=== PATIENT | male | born 1970 | race Two or more races ===

== ENCOUNTER 2016-03-02 11:40 | Inpatient (IN) | payer OTHER ==
[2016-03-02 13:48] VITALS: BMI 24.5
--- NOTE | 2016-03-02 15:42 | HP ---
CIWA Score - CIWA Score Nausea/Vomitin Muscle Tremors: 3 Anxiety: 3 Agitation: 3 Paroxysmal Sweats: 2 Orientation: 0-Oriented Tacttile Disturbances: 2-Mild Itch/Numbness/Burn Auditory Disturbances: 2-Mild Harshness/Frighten Visual Disturbances: 2-Mild Sensitivity Headache: 2-Mild CIWA-Ar Total Score: 22 Admission ROS BHS - HPI Chief Complaint: i am here to stop drinking from alcohol Allergies/Adverse Reactions: Allergies Allergy/AdvReac Type Severity Reaction Status Date / Time Penicillins Allergy Severe Difficulty Verified 03/02/16 15:34 Breathing pork derived (porcine) Allergy Intermediate Hives Verified 03/02/16 15:34 fish Allergy Intermediate Hives Uncoded 03/02/16 15:34 History of Present Illness: this 45 years old male with alcohol dependence,withdrawal symptom,last detox [facility] syncope alcohol related nicotine dependence neurofibromatosis longest period of sobriety 5 years major depression Exam Limitations: No Limitations - Ebola screening Have you traveled outside of the country in the last 21 days: No Have you had contact with anyone from an Ebola affected area: No Have you been sick,other than usual withdrawal symptoms: No - Review of Systems Constitutional: Loss of Appetite, Malaise, Night Sweats, Changes in sleep, Weakness, Unintentional Wgt. Loss EENT: reports: Nose Congestion Respiratory: reports: No Symptoms reported Cardiac: reports: Palpitations GI: reports: Diarrhea, Nausea, Vomiting, Abdominal cramping : reports: No Symptoms Reported Musculoskeletal: reports: Back Pain, Muscle Pain Integumentary: reports: Dryness Neuro: reports: Headache, Tremors Endocrine: reports: No Symptoms Reported Hematology: reports: No Symptoms Reported Psychiatric: reports: Depressed Patient History - Patient Medical History Hx Anemia: No Hx Asthma: Yes (albutrol inhaler) Hx Chronic Obstructive Pulmonary Disease (COPD): No Hx Cancer: No Hx Cardiac Disorders: No Hx Congestive Heart Failure: No Hx Hypertension: No Hx Hypercholesterolemia: No Hx Pacemaker: No HX Cerebrovascular Accident: No Hx Seizures: No Hx Dementia: No Hx Diabetes: No Hx Gastrointestinal Disorders: No Hx Liver Disease: No Hx Genitourinary Disorders: No Hx Sexually Transmitted Disorders: No Hx Renal Disease (ESRD): No Hx Thyroid Disease: No Hx Human Immunodeficiency Virus (HIV): No (NEGATIVE HX last 2013) Hx Hepatitis C: No Hx Depression: Yes (no med) Hx Suicide Attempt: No (DENIES) Hx Bipolar Disorder: No Hx Schizophrenia: No Other Medical History: no suicidal,no homicidal - Patient Surgical History Past Surgical History: Yes Hx Neurologic Surgery: No Hx Cataract Extraction: No Hx Cardiac Surgery: No Hx Lung Surgery: No Hx Breast Surgery: No Hx Breast Biopsy: No Hx Abdominal Surgery: No Hx Appendectomy: No Hx Cholecystectomy: No Hx Genitourinary Surgery: No Hx Section: No Hx Orthopedic Surgery: No Other Surgical History: dermatofiromatosis right leg 3 years ago Anesthesia Reaction: No - PPD History Previous Implant?: Yes Documented Results: Negative w/o proof Implanted On Prior R Admission?: No PPD to be Administered?: Yes - Smoking Cessation Smoking history: Current every day smoker Have you smoked in the past 12 months: Yes Aproximately how many cigarettes per day: 10 Cigars Per Day: 0 Hx Chewing Tobacco Use: No Initiated information on smoking cessation: Yes 'Breaking Loose' booklet given: 03/02/16 - Substance & Tx. History Hx Alcohol Use: Yes Hx Substance Use: Yes Substance Use Type: Alcohol, Cocaine Hx Substance Use Treatment: Yes (01/04 [facility]) Family Disease History - Family Disease History Family Disease History: Diabetes: Grandparent (), Heart Disease: Grandparent, CA: Mother (SKIN CA-), Other: Father (IVD INJ/HIV/AIDS- ), Brother (alcohol) Admission Physical Exam BHS - Vital Signs Vital Signs: Vital Signs - 24 hr 03/02/16 13:46 Temperature 97.2 F L Pulse Rate 90 Respiratory 18 Rate Blood Pressure 116/72 - Physical General Appearance: Yes: Moderate Distress, Tremorous, Irritable, Sweating, Anxious HEENTM: Yes: Nasal Congestion Respiratory: Yes: Lungs Clear Neck: Yes: Within Normal Limits Breast: Yes: Within Normal Limits Cardiology: Yes: Within Normal Limits, Regular Rhythm, Regular Rate, S1, S2 Abdominal: Yes: Within Normal Limits, Normal Bowel Sounds, Non Tender, Flat, Soft Genitourinary: Yes: Within Normal Limits Back: Yes: Muscle Spasm Musculoskeletal: Yes: Back pain, Muscle Pain Extremities: Yes: Tremors 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, Fully Oriented, Alert, Motor Strength 5/5 Integumentary: Yes: Dry Lymphatic: Yes: Within Normal Limits - Diagnostic (1) Alcohol dependence with uncomplicated withdrawal Current Visit: No Status: Acute (2) Asthma Current Visit: No Status: Chronic (3) History of neurofibromatosis Current Visit: No Status: Chronic (4) Syncope Current Visit: Yes Status: Acute (5) Weight loss Current Visit: Yes Status: Acute (6) Depression Current Visit: Yes Status: Acute Cleared for Admission S - Detox or Rehab [facility] Level of Care: Medically Managed Detox Regimen/Protocol: Librium S Breath Alcohol Content Breath Alcohol Content: 0 Urine Drug Screen - Results Drug Screen Negative: No Urine Drug Screen Results: THC-Marijuana, FABI-Cocaine, OPI-Opiates, BZO- Benzodiazepines
[2016-03-02] MEDS ORDERED: MAGNESIUM CITRATE 300 ML BOTTLE PO PRN (15:49)
[2016-03-02] MEDS ORDERED: guaiFENesin/D-METHORPHAN HB 10 ML UNIT-DOSE CUPS PO PRN (15:49)
[2016-03-02] MEDS ORDERED: hydrOXYzine PAMOATE 50 MG CAPSULE (FP) PO PRN (15:49)
[2016-03-02] MEDS ORDERED: diphenhydrAMINE HCL 50 MG CAPSULE PO PRN (15:49)
[2016-03-02] MEDS ORDERED: ACETAMINOPHEN 325 MG TABLET (FP) PO PRN (15:49)
[2016-03-02] MEDS ORDERED: MAGNESIUM HYDROX 2400MG/30ML ORAL SUSPENSION 30 ML CUP PO PRN (15:49)
[2016-03-02] MEDS ORDERED: MENTHOL/PHENOL 1 EACH UD MM PRN (15:49)
[2016-03-02] MEDS ORDERED: P-EPHED 60MG/TRIPROLIDI 2.5MG TABLET PO PRN (15:49)
[2016-03-02] MEDS ORDERED: LOPERAMIDE HCL 2 MG CAPSULE PO PRN (15:49)
[2016-03-02] MEDS ORDERED: MAG HYDROX/AL HYDROX/SIMETH 30 ML UNIT-DOSE CUP PO PRN (15:49)
[2016-03-02] MEDS ORDERED: chlordiazePOXIDE HCL 25 MG CAPSULE PO PRN (15:49)
[2016-03-02] MEDS ORDERED: ALBUTEROL SO4 6.7 GM HFA INHALER IH PRN (15:54)
--- NOTE | 2016-03-02 15:59 | HP ---
CIWA Score - CIWA Score Nausea/Vomitin Muscle Tremors: 3 Anxiety: 3 Agitation: 3 Paroxysmal Sweats: 2 Orientation: 0-Oriented Tacttile Disturbances: 2-Mild Itch/Numbness/Burn Auditory Disturbances: 2-Mild Harshness/Frighten Visual Disturbances: 2-Mild Sensitivity Headache: 2-Mild CIWA-Ar Total Score: 22 Admission ROS BHS - HPI Chief Complaint: i nee help to stop drinking alcohol Allergies/Adverse Reactions: Allergies Allergy/AdvReac Type Severity Reaction Status Date / Time Penicillins Allergy Severe Difficulty Verified 03/02/16 15:34 Breathing pork derived (porcine) Allergy Intermediate Hives Verified 03/02/16 15:34 fish Allergy Intermediate Hives Uncoded 03/02/16 15:34 History of Present Illness: this 45 years old male with alcohol dependence with withdrawal symptom,last detox 01/04 [facility] syncope alcohol related nicotine dependence longest period sobriety 8 years neurodermatofibrosis Exam Limitations: No Limitations - Ebola screening Have you traveled outside of the country in the last 21 days: No Have you had contact with anyone from an Ebola affected area: No Have you been sick,other than usual withdrawal symptoms: No - Review of Systems Constitutional: Loss of Appetite, Malaise, Night Sweats, Changes in sleep, Weakness, Unexplained wgt Loss EENT: reports: Nose Congestion Respiratory: reports: No Symptoms reported Cardiac: reports: Palpitations GI: reports: Diarrhea, Nausea, Vomiting, Abdominal cramping : reports: No Symptoms Reported Musculoskeletal: reports: Back Pain, Muscle Pain Integumentary: reports: Dryness, Other (multiple skin lesion neuridermatofibrosis) Neuro: reports: Headache, Tremors Endocrine: reports: No Symptoms Reported Hematology: reports: No Symptoms Reported Psychiatric: reports: Depressed Other Systems: Reviewed and Negative Patient History - Patient Medical History Hx Anemia: No Hx Asthma: Yes (albutrol inhaler) Hx Chronic Obstructive Pulmonary Disease (COPD): No Hx Cancer: No Hx Cardiac Disorders: No Hx Congestive Heart Failure: No Hx Hypertension: No Hx Hypercholesterolemia: No Hx Pacemaker: No HX Cerebrovascular Accident: No Hx Seizures: No Hx Dementia: No Hx Diabetes: No Hx Gastrointestinal Disorders: No Hx Liver Disease: No Hx Genitourinary Disorders: No Hx Sexually Transmitted Disorders: No Hx Renal Disease (ESRD): No Hx Thyroid Disease: No Hx Human Immunodeficiency Virus (HIV): No (NEGATIVE HX last 2013) Hx Hepatitis C: No Hx Depression: Yes (no med) Hx Suicide Attempt: No (DENIES) Hx Bipolar Disorder: No Hx Schizophrenia: No Other Medical History: no suicidal,no homicidal - Patient Surgical History Past Surgical History: Yes Hx Neurologic Surgery: No Hx Cataract Extraction: No Hx Cardiac Surgery: No Hx Lung Surgery: No Hx Breast Surgery: No Hx Breast Biopsy: No Hx Abdominal Surgery: No Hx Appendectomy: No Hx Cholecystectomy: No Hx Genitourinary Surgery: No Hx Section: No Hx Orthopedic Surgery: No Other Surgical History: dermatofiromatosis right leg 3 years ago Anesthesia Reaction: No - PPD History Previous Implant?: Yes Documented Results: Negative w/o proof Implanted On Prior [facility] Admission?: No - Smoking Cessation Smoking history: Current every day smoker Have you smoked in the past 12 months: Yes Aproximately how many cigarettes per day: 10 Cigars Per Day: 0 Hx Chewing Tobacco Use: No Initiated information on smoking cessation: Yes 'Breaking Loose' booklet given: 03/02/16 - Substances Abused Alcohol Route: Oral Frequency: Daily Amount used: 10 BEERS/ 3 PINTS VODKA Age of first use: 11 Date of Last Use: 03/01/16 Family Disease History - Family Disease History Family Disease History: Diabetes: Grandparent (), Heart Disease: Grandparent, CA: Mother (SKIN CA-), Other: Father (IVD INJ/HIV/AIDS- ), Brother (alcohol) Admission Physical Exam S - Vital Signs Vital Signs: Vital Signs - 24 hr 03/02/16 13:46 Temperature 97.2 F L Pulse Rate 90 Respiratory 18 Rate Blood Pressure 116/72 - Physical General Appearance: Yes: Moderate Distress, Tremorous, Irritable, Sweating, Anxious HEENTM: Yes: Nasal Congestion Respiratory: Yes: Lungs Clear Neck: Yes: Within Normal Limits Breast: Yes: Within Normal Limits Cardiology: Yes: Within Normal Limits, Regular Rhythm, Regular Rate, S1, S2 Abdominal: Yes: Within Normal Limits, Normal Bowel Sounds, Non Tender, Flat, Soft Genitourinary: Yes: Within Normal Limits Back: Yes: Muscle Spasm Musculoskeletal: Yes: Back pain, Muscle Pain Extremities: Yes: Tremors 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, Fully Oriented, Alert, Motor Strength 5/5 Integumentary: Yes: Dry, Other (multiple skin lesions of face,body,extretiies neurofibrodermatofibrosis) Lymphatic: Yes: Within Normal Limits - Diagnostic (1) Alcohol dependence with uncomplicated withdrawal Current Visit: No Status: Acute (2) Asthma Current Visit: No Status: Chronic (3) History of neurofibromatosis Current Visit: No Status: Chronic (4) Syncope Current Visit: Yes Status: Acute (5) Weight loss Current Visit: Yes Status: Acute (6) Depression Current Visit: Yes Status: Acute Cleared for Admission [facility] - Detox or Rehab [facility] Level of Care: Medically Managed Detox Regimen/Protocol: Librium [facility] Breath Alcohol Content Breath Alcohol Content: 0 Urine Drug Screen - Results Drug Screen Negative: No Urine Drug Screen Results: THC-Marijuana, FABI-Cocaine, OPI-Opiates, BZO- Benzodiazepines
[2016-03-02] MEDS ORDERED: chlordiazePOXIDE HCL 25 MG CAPSULE PO ONE (17:15)
[2016-03-02] MEDS: chlordiazePOXIDE HCL 25 MG CAPSULE PO SCH ×2 (18:24→22:47)
[2016-03-02] MEDS: THIAMINE HCL 100 MG TABLET (FP) PO SCH (22:47)
[2016-03-03] MEDS: chlordiazePOXIDE HCL 25 MG CAPSULE PO SCH ×5 (06:05→22:34)
[2016-03-03] MEDS: IBUPROFEN 400 MG TABLET (FP) PO PRN ×2 (09:15→22:37)
--- NOTE | 2016-03-03 10:11 | CONSULT ---
[facility] Psychiatric Consult - Data Date of interview: 03/03/16 Admission source: [facility] Identifying data: First admission to [facility] for this 45 Y/o male seeking detox treatment on for alcohol dependence.Patient is , a father of five,homeless,unemployed and supported on SSI benefits. Substance Abuse History: - Smoking Cessation. Smoking history: Current every day smoker. Have you smoked in the past 12 months: Yes. Aproximately how many cigarettes per day: 10. Cigars Per Day: 0. Hx Chewing Tobacco Use: No. Initiated information on smoking cessation: Yes. 'Breaking Loose' booklet given : 03/02/16. - Substances Abused. Alcohol. Route: Oral. Frequency: Daily. Amount used: 10 BEERS/ 3 PINTS VODKA. Age of first use: 11. Date of Last Use : 03/01/16. Confirmed by patient. Medical History: Significant for bronchial asthma and neurofibromatosis. Psychiatric History: Patient is an irritable and marginally cooperative historian." I see a psychiatrist outside but I have no idea of the medications.I simply don't know." Mr Henri ruedaledges that he is prescribed medications but he also states that he is not compliant with his [facility] care.A review of pharmacy claims shows filled scripts (01/23/16 + 02/02/16) for risperdal,trazodone and celexa @ [facility]).At this time,the patient declares that he has not taken these medications " for a while." No reported history of suicide attempts. Physical/Sexual Abuse/Trauma History: Patient denies. Additional Comment: Urine Drug Screen Results: THC-Marijuana, FABI-Cocaine, OPI- Opiates, BZO-Benzodiazepines.Noted. Mental Status Exam - Mental Status Exam Alert and Oriented to: Time, Place, Person Cognitive Function: Good Patient Appearance: Unkempt, Disheveled Mood: Withdrawn, Anxious, Irritable Affect: Mood Congruent Patient Behavior: Fatigued, Cooperative (superficially cooperative) Speech Pattern: Clear Voice Loudness: Normal Thought Process: Goal Oriented Thought Disorder: Not Present Hallucinations: Denies Suicidal Ideation: Denies Homicidal Ideation: Denies Insight/Judgement: Poor Sleep: Fair Appetite: Poor, Weight loss Muscle strength/Tone: Normal Gait/Station: Normal Psychiatric Findings - Problem List ([place] 1, 2,3) (1) Alcohol dependence with uncomplicated withdrawal Current Visit: Yes Status: Acute (2) Marijuana abuse Current Visit: Yes Status: Acute (3) Cocaine abuse Current Visit: Yes Status: Acute (4) Substance induced mood disorder Current Visit: Yes Status: Acute (5) Depressive disorder Current Visit: Yes Status: Suspected (6) Weight loss Current Visit: Yes Status: Chronic (7) neurodermatofibrosis Current Visit: Yes Status: Chronic - Initial Treatment Plan Initial Treatment Plan: Psychoeducation.Detoxification.Medications,as per pharmacy claims (celexa,trazodone,risperdal) are offered to patient.He consents (verbally) to take celexa 20 mg po daily + seroquel 100 mg po hs.Side effects/ benefits discussed with the patient.Observation.
[2016-03-03] MEDS: PRENATAL VITAMINS W/ FOLIC ACID TABLET (FP) PO SCH (10:28)
[2016-03-03 10:29] LABS: MCHC 33.3 g/dl (32.0-35.9); MEAN PLT VOLUME 9.6 fl (7.5-11.1); PLATELET COUNT 289 K/MM3 (134-434); RDW 13.6 % (11.9-15.9); WHITE BLOOD COUNT 6.4 K/mm3 (4.0-10.0)
[2016-03-03 11:08] LABS: ALK PHOS 76 U/L (45-117); ANION GAP 7 (8-16); BILIRUBIN,TOTAL 0.4 mg/dL (0.2-1.0); CO2 27 mmol/L (21-32); CREATININE 0.6 mg/dL (0.7-1.3); GLUCOSE,RANDOM 82 mg/dL (74-106); SGOT/AST 13 U/L (15-37); SGPT/ALT 25 U/L (12-78); TOT PROT 7.5 g/dl (6.4-8.2)
--- NOTE | 2016-03-03 11:17 | PN ---
[facility] CIWA - CIWA Score Nausea/Vomitin-No Nausea/No Vomiting Muscle Tremors: 4-Moderate,w/Arms Extend Anxiety: 4-Mod. Anxious/Guarded Agitation: 4-Moderately Restless Paroxysmal Sweats: 1-Minimal Palms Moist Orientation: 0-Oriented Tacttile Disturbances: 3-Moderate Itch/Numb/Burn Auditory Disturbances: 0-None Visual Disturbances: 0-None Headache: 0-None Present CIWA-Ar Total Score: 16 S Progress Note (SOAP) Subjective: ANXIETY,CHILLS,SWEATS,MUSCLE/JOINT PAINS, NO BM X 2 DAYS. Objective: 03/03/16 11:16 Vital Signs Temperature 95.8 F L 03/03/16 09:49 Pulse Rate 88 03/03/16 09:49 Respiratory Rate 18 03/03/16 09:49 Blood Pressure 122/78 03/03/16 09:49 O2 Sat by Pulse Oximetry (%) Laboratory Last Values WBC 6.4 K/mm3 (4.0-10.0) D 03/03/16 06:00 RBC 4.60 M/mm3 (4.00-5.60) 03/03/16 06:00 Hgb 13.8 GM/dL (11.7-16.9) 03/03/16 06:00 Hct 41.4 % (35.4-49) 03/03/16 06:00 MCV 90.0 fl (80-96) 03/03/16 06:00 MCHC 33.3 g/dl (32.0-35.9) 03/03/16 06:00 RDW 13.6 % (11.9-15.9) 03/03/16 06:00 Plt Count 289 K/MM3 (134-434) 03/03/16 06:00 MPV 9.6 fl (7.5-11.1) 03/03/16 06:00 Sodium 140 mmol/L (136-145) 03/03/16 06:00 Potassium 4.3 mmol/L (3.5-5.1) 03/03/16 06:00 Chloride 106 mmol/L (98-107) 03/03/16 06:00 Carbon Dioxide 27 mmol/L (21-32) 03/03/16 06:00 Anion Gap 7 (8-16) L 03/03/16 06:00 BUN 13 mg/dL (7-18) 03/03/16 06:00 Creatinine 0.6 mg/dL (0.7-1.3) L 03/03/16 06:00 Creat Clearance w eGFR > 60 (>60) 03/03/16 06:00 Random Glucose 82 mg/dL (74-106) D 03/03/16 06:00 Calcium 9.0 mg/dL (8.5-10.1) 03/03/16 06:00 Total Bilirubin 0.4 mg/dL (0.2-1.0) 03/03/16 06:00 AST 13 U/L (15-37) L 03/03/16 06:00 ALT 25 U/L (12-78) 03/03/16 06:00 Alkaline Phosphatase 76 U/L (45-117) 03/03/16 06:00 Total Protein 7.5 g/dl (6.4-8.2) 03/03/16 06:00 Albumin 4.0 g/dl (3.4-5.0) 03/03/16 06:00 LABS NOTED Assessment: 03/03/16 11:16 WITHDRAWAL SX Plan: CONTINUE DETOX MOM PRN DIRECTED. CITRATE OF MAG IF NOT EFFECTIVE. INCREASE PO FLUIDS.
--- NOTE | 2016-03-03 12:39 | EKG ---
Test Reason : Blood Pressure : / mmHG Vent. Rate : 091 BPM Atrial Rate : 091 BPM P-R Int : 164 ms QRS Dur : 088 ms QT Int : 352 ms P-R-T Axes : 053 015 049 degrees QTc Int : 432 ms NORMAL SINUS RHYTHM NORMAL ECG NO PREVIOUS ECGS AVAILABLE Confirmed by FIORELLA ESPINOSA MD ([id number]) on 03/03/2016 12:38:49 PM Referred By: Confirmed By:FIORELLA ESPINOSA MD
[2016-03-03] MEDS: CYCLOBENZAPRINE HCL 10 MG TABLET (FP) PO SCH ×2 (13:31→22:35)
[2016-03-03] MEDS: NICOTINE POLACRILEX 2 MG GUM BC PRN (17:53)
[2016-03-03] MEDS: THIAMINE HCL 100 MG TABLET (FP) PO SCH (22:34)
[2016-03-03] MEDS: QUEtiapine FUMARATE 100 MG TABLET (FP) PO SCH (22:35)
[2016-03-04] MEDS: chlordiazePOXIDE HCL 25 MG CAPSULE PO SCH ×2 (05:58→10:46)
[2016-03-04] MEDS: CYCLOBENZAPRINE HCL 10 MG TABLET (FP) PO SCH ×3 (05:58→22:57)
[2016-03-04] MEDS: NICOTINE POLACRILEX 2 MG GUM BC PRN ×2 (06:01→19:09)
[2016-03-04] MEDS: PRENATAL VITAMINS W/ FOLIC ACID TABLET (FP) PO SCH (10:46)
[2016-03-04] MEDS: CITALOPRAM HYDROBROMIDE 20 MG TABLET (FP) PO SCH (10:46)
--- NOTE | 2016-03-04 16:48 | PN ---
S CIWA - CIWA Score Nausea/Vomitin-Mild Nausea/No Vomiting Muscle Tremors: 3 Anxiety: 2 Agitation: 3 Paroxysmal Sweats: 2 Orientation: 0-Oriented Tacttile Disturbances: 0-None Auditory Disturbances: 0-None Visual Disturbances: 2-Mild Sensitivity Headache: 0-None Present CIWA-Ar Total Score: 13 BHS Progress Note (SOAP) Objective: 03/04/16 16:48 Laboratory Tests 03/03/16 03/03/16 03/03/16 06:00 06:00 06:00 WBC 6.4 D RBC 4.60 Hgb 13.8 Hct 41.4 MCV 90.0 MCHC 33.3 RDW 13.6 Plt Count 289 MPV 9.6 Sodium 140 Potassium 4.3 Chloride 106 Carbon Dioxide 27 Anion Gap 7 L BUN 13 Creatinine 0.6 L Creat Clearance w eGFR > 60 Random Glucose 82 D Calcium 9.0 Total Bilirubin 0.4 AST 13 L ALT 25 Alkaline Phosphatase 76 Total Protein 7.5 Albumin 4.0 RPR Titer Nonreactive Vital Signs - 24 hr 03/03/16 03/03/16 03/04/16 17:46 22:13 00:30 Temperature 97.5 F L 96.6 F L Pulse Rate 76 85 Respiratory 18 18 18 Rate Blood Pressure 97/54 103/68 03/04/16 03/04/16 03/04/16 03:30 06:36 09:44 Temperature 96.7 F L 96.8 F L Pulse Rate 86 86 90 Respiratory 18 18 18 Rate Blood Pressure 106/73 108/65 Assessment: 03/04/16 16:48 ongoing withdrawal Plan: continue detox protocol
[2016-03-04] MEDS: chlordiazePOXIDE 5 MG CAPSULE PO SCH ×2 (17:00→22:57)
[2016-03-04] MEDS: THIAMINE HCL 100 MG TABLET (FP) PO SCH (22:57)
[2016-03-04] MEDS: QUEtiapine FUMARATE 100 MG TABLET (FP) PO SCH (22:57)
[2016-03-05] MEDS: NICOTINE POLACRILEX 2 MG GUM BC PRN ×3 (05:59→20:22)
[2016-03-05] MEDS: CYCLOBENZAPRINE HCL 10 MG TABLET (FP) PO SCH ×3 (05:59→23:29)
[2016-03-05] MEDS: chlordiazePOXIDE 5 MG CAPSULE PO SCH ×2 (05:59→11:05)
[2016-03-05] MEDS: IBUPROFEN 400 MG TABLET (FP) PO PRN (06:00)
[2016-03-05] MEDS: PRENATAL VITAMINS W/ FOLIC ACID TABLET (FP) PO SCH (11:05)
[2016-03-05] MEDS: CITALOPRAM HYDROBROMIDE 20 MG TABLET (FP) PO SCH (11:05)
--- NOTE | 2016-03-05 15:56 | PN ---
S Progress Note (SOAP) Subjective: Tremor, legs hurt, interrupted sleep, anxious Objective: 03/05/16 15:54 Last Vital Signs Temp Pulse Resp BP Pulse Ox 96.7 F L 90 18 110/72 03/05/16 10:49 03/05/16 10:49 03/05/16 10:49 03/05/16 10:49 Laboratory Tests 03/03/16 03/03/16 03/03/16 06:00 06:00 06:00 WBC 6.4 D RBC 4.60 Hgb 13.8 Hct 41.4 MCV 90.0 MCHC 33.3 RDW 13.6 Plt Count 289 MPV 9.6 Sodium 140 Potassium 4.3 Chloride 106 Carbon Dioxide 27 Anion Gap 7 L BUN 13 Creatinine 0.6 L Creat Clearance w eGFR > 60 Random Glucose 82 D Calcium 9.0 Total Bilirubin 0.4 AST 13 L ALT 25 Alkaline Phosphatase 76 Total Protein 7.5 Albumin 4.0 RPR Titer Nonreactive Labs noted Assessment: 03/05/16 15:55 Withdrawal symptoms Plan: Continue detox Admission UA ordered
[2016-03-05] MEDS: chlordiazePOXIDE HCL 10 MG CAPSULE PO SCH ×2 (17:24→23:29)
[2016-03-05] MEDS: QUEtiapine FUMARATE 100 MG TABLET (FP) PO SCH (23:28)
[2016-03-05] MEDS: THIAMINE HCL 100 MG TABLET (FP) PO SCH (23:29)
[2016-03-06] MEDS: chlordiazePOXIDE HCL 10 MG CAPSULE PO SCH (06:02)
[2016-03-06] MEDS: NICOTINE POLACRILEX 2 MG GUM BC PRN (06:03)
[2016-03-06] MEDS: IBUPROFEN 400 MG TABLET (FP) PO PRN (06:05)
[2016-03-06 06:44] VITALS: BP 105/67; PULSE 81; TEMP 97.1
[2016-03-06] MEDS: CYCLOBENZAPRINE HCL 10 MG TABLET (FP) PO SCH (06:45)
[2016-03-06] MEDS: PRENATAL VITAMINS W/ FOLIC ACID TABLET (FP) PO SCH (09:17)
[2016-03-06] MEDS: CITALOPRAM HYDROBROMIDE 20 MG TABLET (FP) PO SCH (09:17)
--- NOTE | 2016-03-06 10:32 | DS ---
[facility] Detox Discharge Summary Admission Date: 03/02/16 Discharge Date: 03/06/16 - History Present History: Alcohol Dependence, Cannabis Dependence, Cocaine Dependence Pertinent Past History: Asthma Neurofibromatosis - Physical Exam Results Vital Signs: Vital Signs Temperature 97.1 F L 03/06/16 06:44 Pulse Rate 81 03/06/16 06:44 Respiratory Rate 10 L 03/06/16 06:44 Blood Pressure 105/67 03/06/16 06:44 O2 Sat by Pulse Oximetry (%) Laboratory Last Values WBC 6.4 K/mm3 (4.0-10.0) D 03/03/16 06:00 RBC 4.60 M/mm3 (4.00-5.60) 03/03/16 06:00 Hgb 13.8 GM/dL (11.7-16.9) 03/03/16 06:00 Hct 41.4 % (35.4-49) 03/03/16 06:00 MCV 90.0 fl (80-96) 03/03/16 06:00 MCHC 33.3 g/dl (32.0-35.9) 03/03/16 06:00 RDW 13.6 % (11.9-15.9) 03/03/16 06:00 Plt Count 289 K/MM3 (134-434) 03/03/16 06:00 MPV 9.6 fl (7.5-11.1) 03/03/16 06:00 Sodium 140 mmol/L (136-145) 03/03/16 06:00 Potassium 4.3 mmol/L (3.5-5.1) 03/03/16 06:00 Chloride 106 mmol/L (98-107) 03/03/16 06:00 Carbon Dioxide 27 mmol/L (21-32) 03/03/16 06:00 Anion Gap 7 (8-16) L 03/03/16 06:00 BUN 13 mg/dL (7-18) 03/03/16 06:00 Creatinine 0.6 mg/dL (0.7-1.3) L 03/03/16 06:00 Creat Clearance w eGFR > 60 (>60) 03/03/16 06:00 Random Glucose 82 mg/dL (74-106) D 03/03/16 06:00 Calcium 9.0 mg/dL (8.5-10.1) 03/03/16 06:00 Total Bilirubin 0.4 mg/dL (0.2-1.0) 03/03/16 06:00 AST 13 U/L (15-37) L 03/03/16 06:00 ALT 25 U/L (12-78) 03/03/16 06:00 Alkaline Phosphatase 76 U/L (45-117) 03/03/16 06:00 Total Protein 7.5 g/dl (6.4-8.2) 03/03/16 06:00 Albumin 4.0 g/dl (3.4-5.0) 03/03/16 06:00 RPR Titer Nonreactive (NONREACTIVE) 03/03/16 06:00 labs noted Pertinent Admission Physical Exam Findings: Withdrawal Symptoms - Treatment Hospital Course: Detox Protocol Followed, Detoxed Safely, Responded well, Discharged Condition Good - Medication Discharge Medications: Ambulatory Orders Albuterol Sulfate Inhaler - [Ventolin HFA Inhaler -] 2 puff PO Q4H PRN 01/12/16 Citalopram Hydrobromide [Celexa -] 20 mg PO DAILY #30 tablet 03/03/16 Quetiapine Fumarate [Seroquel] 100 mg PO HS #30 tablet 03/03/16 - Diagnosis (1) Alcohol dependence with uncomplicated withdrawal Current Visit: Yes Status: Acute (2) Cocaine abuse Current Visit: Yes Status: Acute (3) Depression Current Visit: Yes Status: Acute (4) Marijuana abuse Current Visit: Yes Status: Acute (5) Substance induced mood disorder Current Visit: Yes Status: Acute (6) Depressive disorder Current Visit: Yes Status: Suspected (7) Asthma Current Visit: No Status: Chronic (8) History of neurofibromatosis Current Visit: No Status: Chronic - AMA Did Patient Leave Against Medical Advice: No
[2016-03-06 13:00] LABS: URINE APPEARANCE SLCLOUDY; URINE BILIRUBIN NEGATIVE (NEGATIVE); URINE BLOOD NEGATIVE (NEGATIVE); URINE COLOR YELLOW; URINE GLUCOSE (UA) NEGATIVE (NEGATIVE); URINE KETONE NEGATIVE (NEGATIVE); URINE LEUK ESTERASE NEGATIVE (NEGATIVE); URINE NITRITE NEGATIVE (NEGATIVE); URINE PROTEIN NEGATIVE (NEGATIVE); URINE UROBILINOGEN NEGATIVE E.U./dl (0.2-1.0)
== END 2016-03-06 10:42 | disposition home or self-care (01) | DRG 774 ==
LOC: YASAS 11:40 → Y3N 15:48
PROVIDERS: ADMIT Internal Medicine; ATTEND Internal Medicine
PROC: HZ2ZZZZ Detoxification Services for Substance Abuse Treatment (ICD-10-PCS; principal; 2016-03-02)
DX: F10.230 Alcohol dependence with withdrawal, uncomplicated (principal); F14.10 Cocaine abuse, uncomplicated; F12.10 Cannabis abuse, uncomplicated; F17.210 Nicotine dependence, cigarettes, uncomplicated; F32.9 Major depressive disorder, single episode, unspecified; F19.24 Other psychoactive substance dependence with psychoactive substance-induced mood disorder; J45.909 Unspecified asthma, uncomplicated; Z87.898 Personal history of other specified conditions; Z86.79 Personal history of other diseases of the circulatory system; Z86.69 Personal history of other diseases of the nervous system and sense organs
CPT/HCPCS: 36415; 80053; 81003; 85027; 86593; 93005; 93010

== ENCOUNTER 2016-05-22 18:48 | Inpatient (IN) | payer OTHER ==
[2016-05-22 19:18] VITALS: BMI 24.3
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
[2016-05-22] MEDS ORDERED: guaiFENesin/D-METHORPHAN HB 10 ML UNIT-DOSE CUPS PO PRN (21:12)
[2016-05-22] MEDS ORDERED: MENTHOL/PHENOL 1 EACH UD MM PRN (21:12)
[2016-05-22] MEDS ORDERED: MAGNESIUM HYDROX 2400MG/30ML ORAL SUSPENSION 30 ML CUP PO PRN (21:12)
[2016-05-22] MEDS ORDERED: LOPERAMIDE HCL 2 MG CAPSULE PO PRN (21:12)
[2016-05-22] MEDS ORDERED: P-EPHED 60MG/TRIPROLIDI 2.5MG TABLET PO PRN (21:12)
[2016-05-22] MEDS ORDERED: MAGNESIUM CITRATE 300 ML BOTTLE PO PRN (21:12)
[2016-05-22] MEDS: NICOTINE 14 MG/24 HOURS TOPICAL PATCH TD SCH (23:43)
[2016-05-22] MEDS: THIAMINE HCL 100 MG TABLET (FP) PO SCH (23:43)
[2016-05-23] MEDS: IBUPROFEN 400 MG TABLET (FP) PO PRN ×3 (00:14→21:39)
[2016-05-23] MEDS: NICOTINE POLACRILEX 2 MG GUM BC PRN ×5 (06:12→21:39)
[2016-05-23 09:43] LABS: MCH 29.4 pg (25.7-33.7); MCHC 33.8 g/dl (32.0-35.9); MEAN PLT VOLUME 8.5 fl (7.5-11.1); PLATELET COUNT 273 K/MM3 (134-434); RDW 13.3 % (11.9-15.9); WHITE BLOOD COUNT 6.5 K/mm3 (4.0-10.0)
[2016-05-23] MEDS: NICOTINE 14 MG/24 HOURS TOPICAL PATCH TD SCH (09:53)
[2016-05-23] MEDS: PRENATAL VITAMINS W/ FOLIC ACID TABLET (FP) PO SCH (09:53)
[2016-05-23 09:54] LABS: ALBUMIN 3.6 g/dl (3.4-5.0); ANION GAP 9 (8-16); CALCIUM 8.7 mg/dL (8.5-10.1); CO2 26 mmol/L (21-32); CREATININE 0.6 mg/dL (0.7-1.3); GLUCOSE,RANDOM 81 mg/dL (74-106)
[2016-05-23 09:58] LABS: ALK PHOS 82 U/L (45-117); BILIRUBIN,TOTAL 0.4 mg/dL (0.2-1.0); SGOT/AST 20 U/L (15-37); SGPT/ALT 22 U/L (12-78); TOT PROT 6.9 g/dl (6.4-8.2)
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
[2016-05-23] MEDS: diphenhydrAMINE HCL 50 MG CAPSULE PO PRN (21:38)
[2016-05-23] MEDS: THIAMINE HCL 100 MG TABLET (FP) PO SCH (21:38)
[2016-05-23] MEDS: QUEtiapine FUMARATE 100 MG TABLET (FP) PO SCH (21:38)
--- NOTE | 2016-05-23 23:37 | EKG ---
Test Reason : Blood Pressure : / mmHG Vent. Rate : 098 BPM Atrial Rate : 098 BPM P-R Int : 166 ms QRS Dur : 088 ms QT Int : 336 ms P-R-T Axes : 056 018 042 degrees QTc Int : 428 ms NORMAL SINUS RHYTHM NORMAL ECG WHEN COMPARED WITH ECG OF 02-MAR-2016 17:31, NO SIGNIFICANT CHANGE WAS FOUND Confirmed by SARAH FUENTES MD ([id number]) on 05/23/2016 11:37:08 PM Referred By: Confirmed By:SARAH FUENTES MD
[2016-05-24] MEDS: IBUPROFEN 400 MG TABLET (FP) PO PRN ×3 (06:57→21:43)
[2016-05-24] MEDS: NICOTINE POLACRILEX 2 MG GUM BC PRN ×5 (06:58→21:44)
[2016-05-24] MEDS: CITALOPRAM HYDROBROMIDE 20 MG TABLET (FP) PO SCH (09:58)
[2016-05-24] MEDS: PRENATAL VITAMINS W/ FOLIC ACID TABLET (FP) PO SCH (09:58)
[2016-05-24] MEDS: NICOTINE 14 MG/24 HOURS TOPICAL PATCH TD SCH (09:59)
[2016-05-24] MEDS: ACETAMINOPHEN 325 MG TABLET (FP) PO PRN ×2 (10:00→17:48)
[2016-05-24] MEDS: hydrOXYzine PAMOATE 50 MG CAPSULE (FP) PO PRN (10:00)
[2016-05-24] MEDS: THIAMINE HCL 100 MG TABLET (FP) PO SCH (21:40)
[2016-05-24] MEDS: QUEtiapine FUMARATE 100 MG TABLET (FP) PO SCH (21:40)
[2016-05-24] MEDS: DOCUSATE SODIUM 100 MG CAPSULE (FP) PO SCH (21:40)
[2016-05-24] MEDS: HYDROCORTISONE 2.5% TOPICAL CREAM 30 GM TUBE TP SCH (21:42)
[2016-05-25] MEDS: IBUPROFEN 400 MG TABLET (FP) PO PRN ×3 (06:17→21:28)
[2016-05-25] MEDS: DOCUSATE SODIUM 100 MG CAPSULE (FP) PO SCH ×3 (06:17→21:28)
[2016-05-25] MEDS: PRENATAL VITAMINS W/ FOLIC ACID TABLET (FP) PO SCH (10:07)
[2016-05-25] MEDS: NICOTINE 14 MG/24 HOURS TOPICAL PATCH TD SCH (10:08)
[2016-05-25] MEDS: CITALOPRAM HYDROBROMIDE 20 MG TABLET (FP) PO SCH (10:08)
[2016-05-25] MEDS: HYDROCORTISONE 2.5% TOPICAL CREAM 30 GM TUBE TP SCH ×2 (10:09→21:28)
[2016-05-25] MEDS: ACETAMINOPHEN 325 MG TABLET (FP) PO PRN (10:12)
[2016-05-25] MEDS: NICOTINE POLACRILEX 2 MG GUM BC PRN ×4 (10:13→21:30)
[2016-05-25] MEDS: QUEtiapine FUMARATE 100 MG TABLET (FP) PO SCH (21:28)
[2016-05-25] MEDS: THIAMINE HCL 100 MG TABLET (FP) PO SCH (21:28)
[2016-05-25] MEDS: ALBUTEROL SO4 6.7 GM HFA INHALER IH PRN (21:30)
[2016-05-25 21:32] LABS: URINE APPEARANCE CLEAR; URINE BILIRUBIN NEGATIVE (NEGATIVE); URINE BLOOD NEGATIVE (NEGATIVE); URINE COLOR STRAW; URINE GLUCOSE (UA) NEGATIVE (NEGATIVE); URINE KETONE NEGATIVE (NEGATIVE); URINE LEUK ESTERASE NEGATIVE (NEGATIVE); URINE NITRITE NEGATIVE (NEGATIVE); URINE PROTEIN NEGATIVE (NEGATIVE); URINE UROBILINOGEN NEGATIVE E.U./dl (0.2-1.0)
[2016-05-26] MEDS: IBUPROFEN 400 MG TABLET (FP) PO PRN ×2 (06:17→14:10)
[2016-05-26] MEDS: DOCUSATE SODIUM 100 MG CAPSULE (FP) PO SCH ×3 (06:17→21:30)
[2016-05-26] MEDS: NICOTINE POLACRILEX 2 MG GUM BC PRN ×5 (06:19→21:49)
[2016-05-26] MEDS: CITALOPRAM HYDROBROMIDE 20 MG TABLET (FP) PO SCH (09:49)
[2016-05-26] MEDS: PRENATAL VITAMINS W/ FOLIC ACID TABLET (FP) PO SCH (09:50)
[2016-05-26] MEDS: NICOTINE 14 MG/24 HOURS TOPICAL PATCH TD SCH (09:50)
[2016-05-26] MEDS: ACETAMINOPHEN 325 MG TABLET (FP) PO PRN ×3 (09:50→21:48)
[2016-05-26] MEDS: HYDROCORTISONE 2.5% TOPICAL CREAM 30 GM TUBE TP SCH ×2 (09:51→21:30)
[2016-05-26] MEDS ORDERED: LIDOCAINE 5% TOPICAL PATCH TP SCH (10:00)
--- NOTE | 2016-05-26 12:24 | PN ---
[facility] Progress Note Note: low back pain,constipated,motrin 800 mgs po tid prn,flexeril 10 mgs po tid prn, mom as needed
[2016-05-26] MEDS: CYCLOBENZAPRINE HCL 10 MG TABLET (FP) PO PRN (14:10)
--- NOTE | 2016-05-26 20:22 | PN ---
[id number] once daily 12 h on 12 h off continue rehab
[2016-05-26] MEDS: QUEtiapine FUMARATE 100 MG TABLET (FP) PO SCH (21:30)
[2016-05-26] MEDS: THIAMINE HCL 100 MG TABLET (FP) PO SCH (21:30)
[2016-05-27] MEDS: DOCUSATE SODIUM 100 MG CAPSULE (FP) PO SCH ×3 (06:29→21:44)
[2016-05-27] MEDS: NICOTINE POLACRILEX 2 MG GUM BC PRN ×4 (06:30→21:49)
[2016-05-27] MEDS: ACETAMINOPHEN 325 MG TABLET (FP) PO PRN ×2 (06:31→18:02)
[2016-05-27] MEDS: LIDOCAINE 5% TOPICAL PATCH TP SCH (09:38)
[2016-05-27] MEDS: CITALOPRAM HYDROBROMIDE 20 MG TABLET (FP) PO SCH (09:38)
[2016-05-27] MEDS: NICOTINE 14 MG/24 HOURS TOPICAL PATCH TD SCH (09:38)
[2016-05-27] MEDS: PRENATAL VITAMINS W/ FOLIC ACID TABLET (FP) PO SCH (09:38)
[2016-05-27] MEDS: HYDROCORTISONE 2.5% TOPICAL CREAM 30 GM TUBE TP SCH ×2 (09:39→21:48)
[2016-05-27] MEDS: IBUPROFEN 400 MG TABLET (FP) PO PRN ×2 (11:19→21:48)
[2016-05-27] MEDS: THIAMINE HCL 100 MG TABLET (FP) PO SCH (21:44)
[2016-05-27] MEDS: QUEtiapine FUMARATE 100 MG TABLET (FP) PO SCH (21:44)
[2016-05-27] MEDS: diphenhydrAMINE HCL 50 MG CAPSULE PO PRN (21:45)
[2016-05-27] MEDS: MAG HYDROX/AL HYDROX/SIMETH 30 ML UNIT-DOSE CUP PO PRN (21:48)
[2016-05-27] MEDS: CYCLOBENZAPRINE HCL 10 MG TABLET (FP) PO PRN (21:48)
[2016-05-28] MEDS: DOCUSATE SODIUM 100 MG CAPSULE (FP) PO SCH ×3 (06:21→21:47)
[2016-05-28] MEDS: IBUPROFEN 400 MG TABLET (FP) PO PRN (06:22)
[2016-05-28] MEDS: NICOTINE POLACRILEX 2 MG GUM BC PRN ×4 (06:23→21:49)
[2016-05-28] MEDS: PRENATAL VITAMINS W/ FOLIC ACID TABLET (FP) PO SCH (09:49)
[2016-05-28] MEDS: LIDOCAINE 5% TOPICAL PATCH TP SCH (09:49)
[2016-05-28] MEDS: NICOTINE 14 MG/24 HOURS TOPICAL PATCH TD SCH (09:49)
[2016-05-28] MEDS: CITALOPRAM HYDROBROMIDE 20 MG TABLET (FP) PO SCH (09:49)
[2016-05-28] MEDS: HYDROCORTISONE 2.5% TOPICAL CREAM 30 GM TUBE TP SCH ×2 (09:50→21:59)
[2016-05-28] MEDS: MAG HYDROX/AL HYDROX/SIMETH 30 ML UNIT-DOSE CUP PO PRN ×2 (11:26→19:29)
[2016-05-28] MEDS: ALBUTEROL SO4 6.7 GM HFA INHALER IH PRN (13:54)
[2016-05-28] MEDS: CYCLOBENZAPRINE HCL 10 MG TABLET (FP) PO PRN ×2 (16:46→21:47)
[2016-05-28] MEDS: ACETAMINOPHEN 325 MG TABLET (FP) PO PRN ×2 (16:48→21:48)
[2016-05-28] MEDS: diphenhydrAMINE HCL 50 MG CAPSULE PO PRN (21:47)
[2016-05-28] MEDS: QUEtiapine FUMARATE 100 MG TABLET (FP) PO SCH (21:47)
[2016-05-28] MEDS: THIAMINE HCL 100 MG TABLET (FP) PO SCH (21:47)
[2016-05-29] MEDS: IBUPROFEN 400 MG TABLET (FP) PO PRN ×3 (03:41→21:34)
[2016-05-29] MEDS: NICOTINE POLACRILEX 2 MG GUM BC PRN ×3 (06:27→22:11)
[2016-05-29] MEDS: DOCUSATE SODIUM 100 MG CAPSULE (FP) PO SCH ×3 (06:27→21:33)
[2016-05-29] MEDS: PRENATAL VITAMINS W/ FOLIC ACID TABLET (FP) PO SCH (10:02)
[2016-05-29] MEDS: CITALOPRAM HYDROBROMIDE 20 MG TABLET (FP) PO SCH (10:02)
[2016-05-29] MEDS: LIDOCAINE 5% TOPICAL PATCH TP SCH (10:03)
[2016-05-29] MEDS: NICOTINE 14 MG/24 HOURS TOPICAL PATCH TD SCH (10:03)
[2016-05-29] MEDS: ACETAMINOPHEN 325 MG TABLET (FP) PO PRN (10:05)
[2016-05-29] MEDS: CYCLOBENZAPRINE HCL 10 MG TABLET (FP) PO PRN ×2 (10:05→21:34)
[2016-05-29] MEDS: HYDROCORTISONE 2.5% TOPICAL CREAM 30 GM TUBE TP SCH ×2 (10:06→21:33)
[2016-05-29] MEDS: MAG HYDROX/AL HYDROX/SIMETH 30 ML UNIT-DOSE CUP PO PRN (10:06)
[2016-05-29] MEDS: THIAMINE HCL 100 MG TABLET (FP) PO SCH (21:33)
[2016-05-29] MEDS: QUEtiapine FUMARATE 100 MG TABLET (FP) PO SCH (21:33)
[2016-05-29] MEDS: RANITIDINE HCL 150 MG TABLET (FP) PO SCH (21:34)
[2016-05-30] MEDS: IBUPROFEN 400 MG TABLET (FP) PO PRN ×2 (06:06→16:59)
[2016-05-30] MEDS: NICOTINE POLACRILEX 2 MG GUM BC PRN ×4 (06:06→21:34)
[2016-05-30] MEDS: DOCUSATE SODIUM 100 MG CAPSULE (FP) PO SCH ×3 (06:07→21:32)
[2016-05-30] MEDS: NICOTINE 14 MG/24 HOURS TOPICAL PATCH TD SCH (10:02)
[2016-05-30] MEDS: LIDOCAINE 5% TOPICAL PATCH TP SCH (10:02)
[2016-05-30] MEDS: RANITIDINE HCL 150 MG TABLET (FP) PO SCH ×2 (10:02→21:32)
[2016-05-30] MEDS: PRENATAL VITAMINS W/ FOLIC ACID TABLET (FP) PO SCH (10:02)
[2016-05-30] MEDS: ACETAMINOPHEN 325 MG TABLET (FP) PO PRN ×3 (10:02→21:34)
[2016-05-30] MEDS: CYCLOBENZAPRINE HCL 10 MG TABLET (FP) PO PRN ×2 (10:02→21:33)
[2016-05-30] MEDS: CITALOPRAM HYDROBROMIDE 20 MG TABLET (FP) PO SCH (10:02)
[2016-05-30] MEDS: HYDROCORTISONE 2.5% TOPICAL CREAM 30 GM TUBE TP SCH ×2 (10:05→21:32)
[2016-05-30] MEDS: hydrOXYzine PAMOATE 50 MG CAPSULE (FP) PO PRN (13:46)
[2016-05-30] MEDS: QUEtiapine FUMARATE 100 MG TABLET (FP) PO SCH (21:32)
[2016-05-30] MEDS: THIAMINE HCL 100 MG TABLET (FP) PO SCH (21:32)
[2016-05-31] MEDS: IBUPROFEN 400 MG TABLET (FP) PO PRN ×3 (06:40→21:40)
[2016-05-31] MEDS: DOCUSATE SODIUM 100 MG CAPSULE (FP) PO SCH ×3 (06:41→21:40)
[2016-05-31] MEDS: NICOTINE POLACRILEX 2 MG GUM BC PRN ×5 (06:41→21:42)
[2016-05-31] MEDS: CITALOPRAM HYDROBROMIDE 20 MG TABLET (FP) PO SCH (10:05)
[2016-05-31] MEDS: RANITIDINE HCL 150 MG TABLET (FP) PO SCH ×2 (10:05→21:40)
[2016-05-31] MEDS: PRENATAL VITAMINS W/ FOLIC ACID TABLET (FP) PO SCH (10:05)
[2016-05-31] MEDS: CYCLOBENZAPRINE HCL 10 MG TABLET (FP) PO PRN ×2 (10:06→21:40)
[2016-05-31] MEDS: LIDOCAINE 5% TOPICAL PATCH TP SCH (10:06)
[2016-05-31] MEDS: HYDROCORTISONE 2.5% TOPICAL CREAM 30 GM TUBE TP SCH ×2 (10:39→21:40)
[2016-05-31] MEDS: NICOTINE 14 MG/24 HOURS TOPICAL PATCH TD SCH (10:39)
[2016-05-31] MEDS: QUEtiapine FUMARATE 100 MG TABLET (FP) PO SCH (21:40)
[2016-05-31] MEDS: THIAMINE HCL 100 MG TABLET (FP) PO SCH (21:40)
[2016-05-31] MEDS: diphenhydrAMINE HCL 50 MG CAPSULE PO PRN (22:23)
[2016-06-01] MEDS: NICOTINE POLACRILEX 2 MG GUM BC PRN ×4 (06:28→17:25)
[2016-06-01] MEDS: IBUPROFEN 400 MG TABLET (FP) PO PRN ×3 (06:28→20:22)
[2016-06-01] MEDS: DOCUSATE SODIUM 100 MG CAPSULE (FP) PO SCH (06:29)
[2016-06-01] MEDS: CITALOPRAM HYDROBROMIDE 20 MG TABLET (FP) PO SCH (10:06)
[2016-06-01] MEDS: hydrOXYzine PAMOATE 50 MG CAPSULE (FP) PO PRN (10:06)
[2016-06-01] MEDS: RANITIDINE HCL 150 MG TABLET (FP) PO SCH ×2 (10:06→21:31)
[2016-06-01] MEDS: PRENATAL VITAMINS W/ FOLIC ACID TABLET (FP) PO SCH (10:06)
[2016-06-01] MEDS: CYCLOBENZAPRINE HCL 10 MG TABLET (FP) PO PRN ×2 (10:06→21:31)
[2016-06-01] MEDS: ALBUTEROL SO4 6.7 GM HFA INHALER IH PRN (10:07)
[2016-06-01] MEDS: ACETAMINOPHEN 325 MG TABLET (FP) PO PRN (10:08)
[2016-06-01] MEDS: HYDROCORTISONE 2.5% TOPICAL CREAM 30 GM TUBE TP SCH ×2 (10:09→21:34)
[2016-06-01] MEDS: LIDOCAINE 5% TOPICAL PATCH TP SCH (10:09)
[2016-06-01] MEDS: NICOTINE 14 MG/24 HOURS TOPICAL PATCH TD SCH (10:11)
[2016-06-01] MEDS: QUEtiapine FUMARATE 100 MG TABLET (FP) PO SCH (21:31)
[2016-06-01] MEDS: THIAMINE HCL 100 MG TABLET (FP) PO SCH (21:32)
[2016-06-01] MEDS: diphenhydrAMINE HCL 50 MG CAPSULE PO PRN (22:01)
[2016-06-02] MEDS: NICOTINE POLACRILEX 2 MG GUM BC PRN ×4 (06:20→20:11)
[2016-06-02] MEDS: IBUPROFEN 400 MG TABLET (FP) PO PRN ×2 (06:20→14:40)
[2016-06-02] MEDS: CITALOPRAM HYDROBROMIDE 20 MG TABLET (FP) PO SCH (09:57)
[2016-06-02] MEDS: PRENATAL VITAMINS W/ FOLIC ACID TABLET (FP) PO SCH (09:57)
[2016-06-02] MEDS: RANITIDINE HCL 150 MG TABLET (FP) PO SCH ×2 (09:57→21:38)
[2016-06-02] MEDS: CYCLOBENZAPRINE HCL 10 MG TABLET (FP) PO PRN ×2 (09:59→21:39)
[2016-06-02] MEDS: HYDROCORTISONE 2.5% TOPICAL CREAM 30 GM TUBE TP SCH ×3 (10:30→21:38)
[2016-06-02] MEDS: NICOTINE 14 MG/24 HOURS TOPICAL PATCH TD SCH (10:36)
[2016-06-02] MEDS: LIDOCAINE 5% TOPICAL PATCH TP SCH ×2 (10:36→12:18)
[2016-06-02] MEDS: QUEtiapine FUMARATE 100 MG TABLET (FP) PO SCH (21:38)
[2016-06-02] MEDS: THIAMINE HCL 100 MG TABLET (FP) PO SCH (21:38)
[2016-06-02] MEDS: diphenhydrAMINE HCL 50 MG CAPSULE PO PRN (21:39)
[2016-06-02] MEDS: ACETAMINOPHEN 325 MG TABLET (FP) PO PRN (21:40)
[2016-06-03] MEDS: IBUPROFEN 400 MG TABLET (FP) PO PRN ×3 (04:52→21:36)
[2016-06-03] MEDS: NICOTINE POLACRILEX 2 MG GUM BC PRN ×4 (08:01→21:38)
[2016-06-03] MEDS: CITALOPRAM HYDROBROMIDE 20 MG TABLET (FP) PO SCH (09:57)
[2016-06-03] MEDS: PRENATAL VITAMINS W/ FOLIC ACID TABLET (FP) PO SCH (09:57)
[2016-06-03] MEDS: HYDROCORTISONE 2.5% TOPICAL CREAM 30 GM TUBE TP SCH ×2 (09:57→21:35)
[2016-06-03] MEDS: RANITIDINE HCL 150 MG TABLET (FP) PO SCH ×2 (09:57→21:36)
[2016-06-03] MEDS: NICOTINE 14 MG/24 HOURS TOPICAL PATCH TD SCH (09:58)
[2016-06-03] MEDS: LIDOCAINE 5% TOPICAL PATCH TP SCH (09:58)
[2016-06-03] MEDS: CYCLOBENZAPRINE HCL 10 MG TABLET (FP) PO PRN ×2 (09:59→21:36)
[2016-06-03] MEDS: THIAMINE HCL 100 MG TABLET (FP) PO SCH (21:36)
[2016-06-03] MEDS: diphenhydrAMINE HCL 50 MG CAPSULE PO PRN (21:36)
[2016-06-03] MEDS: QUEtiapine FUMARATE 100 MG TABLET (FP) PO SCH (21:36)
[2016-06-03] MEDS: ALBUTEROL SO4 6.7 GM HFA INHALER IH PRN (21:38)
[2016-06-04] MEDS: IBUPROFEN 400 MG TABLET (FP) PO PRN (06:50)
[2016-06-04] MEDS: NICOTINE POLACRILEX 2 MG GUM BC PRN ×5 (06:51→21:45)
[2016-06-04] MEDS: HYDROCORTISONE 2.5% TOPICAL CREAM 30 GM TUBE TP SCH ×2 (10:16→21:52)
[2016-06-04] MEDS: LIDOCAINE 5% TOPICAL PATCH TP SCH (10:17)
[2016-06-04] MEDS: CITALOPRAM HYDROBROMIDE 20 MG TABLET (FP) PO SCH (10:17)
[2016-06-04] MEDS: PRENATAL VITAMINS W/ FOLIC ACID TABLET (FP) PO SCH (10:17)
[2016-06-04] MEDS: CYCLOBENZAPRINE HCL 10 MG TABLET (FP) PO PRN ×3 (10:17→21:42)
[2016-06-04] MEDS: RANITIDINE HCL 150 MG TABLET (FP) PO SCH ×2 (10:17→21:42)
[2016-06-04] MEDS: ACETAMINOPHEN 325 MG TABLET (FP) PO PRN ×3 (10:18→21:42)
[2016-06-04] MEDS: NICOTINE 14 MG/24 HOURS TOPICAL PATCH TD SCH (10:18)
[2016-06-04] MEDS: hydrOXYzine PAMOATE 50 MG CAPSULE (FP) PO PRN (14:31)
[2016-06-04] MEDS: QUEtiapine FUMARATE 100 MG TABLET (FP) PO SCH (21:42)
[2016-06-04] MEDS: THIAMINE HCL 100 MG TABLET (FP) PO SCH (21:42)
[2016-06-04] MEDS: diphenhydrAMINE HCL 50 MG CAPSULE PO PRN (21:42)
[2016-06-05] MEDS: IBUPROFEN 400 MG TABLET (FP) PO PRN ×2 (05:22→14:21)
[2016-06-05] MEDS: PRENATAL VITAMINS W/ FOLIC ACID TABLET (FP) PO SCH (10:14)
[2016-06-05] MEDS: HYDROCORTISONE 2.5% TOPICAL CREAM 30 GM TUBE TP SCH ×2 (10:14→23:20)
[2016-06-05] MEDS: LIDOCAINE 5% TOPICAL PATCH TP SCH (10:14)
[2016-06-05] MEDS: RANITIDINE HCL 150 MG TABLET (FP) PO SCH ×2 (10:14→21:48)
[2016-06-05] MEDS: CITALOPRAM HYDROBROMIDE 20 MG TABLET (FP) PO SCH (10:14)
[2016-06-05] MEDS: NICOTINE 14 MG/24 HOURS TOPICAL PATCH TD SCH (10:15)
[2016-06-05] MEDS: ACETAMINOPHEN 325 MG TABLET (FP) PO PRN (10:15)
[2016-06-05] MEDS: NICOTINE POLACRILEX 2 MG GUM BC PRN ×3 (10:16→20:16)
[2016-06-05] MEDS: ALBUTEROL SO4 6.7 GM HFA INHALER IH PRN (14:54)
[2016-06-05] MEDS: THIAMINE HCL 100 MG TABLET (FP) PO SCH (21:48)
[2016-06-05] MEDS: QUEtiapine FUMARATE 100 MG TABLET (FP) PO SCH (21:48)
[2016-06-05] MEDS: CYCLOBENZAPRINE HCL 10 MG TABLET (FP) PO PRN (21:51)
[2016-06-06] MEDS: IBUPROFEN 400 MG TABLET (FP) PO PRN (06:21)
[2016-06-06] MEDS: NICOTINE POLACRILEX 2 MG GUM BC PRN (06:22)
[2016-06-06 07:00] VITALS: BP 112/69; PULSE 78; TEMP 97.5
--- NOTE | 2016-06-06 10:07 | PN ---
Psychiatric Progress Note Vital Signs: Vital Signs Period Temp Pulse Resp BP Sys/Lin Pulse Ox Last 24 Hr 97.4 F-98.3 F 78-88 16-18 112-129/64-70 Date of Session: 06/06/16 Chief Complaint:: discharge visit HPI: Patient has addressed alcohol, cocaine, nicotine dependence comorbid Schizophrenia, paranoid. ROS: Bronchial Asthma and Neurofibromatosis Current Medications: Active Medications Generic Name Dose Route Start Last Admin Trade Name Freq PRN Reason Stop Dose Admin Acetaminophen 650 mg 05/22/16 21:12 06/05/16 10:15 Tylenol - PO 650 mg Q4H PRN Administration PAIN Al Hydroxide/Mg Hydroxide 30 ml 05/22/16 21:12 05/29/16 10:06 Mylanta Oral Suspension - PO 30 ml Q6H PRN Administration DYSPEPSIA Albuterol Sulfate 2 puff 05/22/16 21:14 06/05/16 14:54 Ventolin Hfa Inhaler - IH 2 puff Q4H PRN Administration ASTHMA Citalopram Hydrobromide 20 mg 05/24/16 10:00 06/05/16 10:14 Celexa - PO 20 mg DAILY MATTHEW Administration Cyclobenzaprine HCl 10 mg 05/26/16 12:21 06/05/16 21:51 Flexeril - PO 10 mg TID PRN Administration MUSCLE SPASMS Diphenhydramine HCl 50 mg 05/22/16 21:12 06/04/16 21:42 Benadryl - PO 50 mg HSMR1 PRN Administration INSOMNIA Eucalyptus/Menthol/Phenol/Sorbitol 1 each 05/22/16 21:12 Cepastat Lozenge - MM Q4H PRN SORE THROAT Guaifenesin 10 ml 05/22/16 21:12 Robitussin Dm - PO Q6H PRN COUGH Hydrocortisone 1 applic 05/24/16 22:00 06/05/16 23:20 Anusol 2.5% Hc Cream - TP Not Given BID MATTHEW Hydroxyzine Pamoate 50 mg 05/22/16 21:12 06/04/16 14:31 Vistaril - PO 50 mg Q4H PRN Administration AGITATION Ibuprofen 800 mg 05/26/16 12:20 06/06/16 06:21 Motrin - PO 800 mg Q8H PRN Administration PAIN Lidocaine 1 patch 05/27/16 10:00 06/05/16 10:14 Lidoderm Patch - TP 1 patch DAILY MATTHEW Administration Loperamide HCl 4 mg 05/22/16 21:12 Imodium - PO Q6H PRN DIARRHEA Magnesium Citrate 300 ml 05/22/16 21:12 Citroma - PO Q48H PRN CONSTIPATION Magnesium Hydroxide 30 ml 05/22/16 21:12 06/04/16 20:02 Milk Of Magnesia - PO 30 ml DAILY PRN Administration CONSTIPATION Nicotine 14 mg 05/22/16 21:15 06/05/16 10:15 Nicoderm Patch - TD Not Given DAILY MATTHEW Nicotine Polacrilex 2 mg 05/22/16 21:12 06/06/16 06:22 Nicorette Gum - BC 2 mg Q2H PRN Administration NICOTINE REPLACEMENT RX Multivit/Folic Acid/Iron 1 tab 05/23/16 10:00 06/05/16 10:14 Vitamins (Sjr) - PO 1 tab DAILY MATTHEW Administration Pseudoephedrine/Triprolidine 1 combo 05/22/16 21:12 Actifed - PO TID PRN NASAL CONGESTION Quetiapine Fumarate 100 mg 05/23/16 22:00 06/05/16 21:48 Seroquel - PO 100 mg HS MATTHEW Administration Ranitidine HCl 150 mg 05/29/16 22:00 06/05/16 21:48 Zantac - PO 150 mg BID MATTHEW Administration Thiamine HCl 100 mg 05/22/16 22:00 06/05/16 21:48 Vitamin B1 - PO 100 mg HS MATTHEW Administration Current Side Effect: No Lab tests ordered: No Lab tests reviewed: Yes Provider note:: Patient has completed today his treatment and met his goals, will continue to address his issues at [facility] inpatient shelter treatment program. Patient attended relapse prevention groups and educated about how addiction placed him at high risk situations, he also attended anger management groups and educated on the importance of recognazing early relapse signs and importance to utilize all help tp prevent relapses. Patient was encouraged to continue working on improving his copy skills to prevent relapses. Medications ( Seroquel and Celexa) well tolerated, scripts provided. Patient was encouraged to take medications as directed, he is stable for discharge today. Total face to face time:: 35 Mental Status Exam - Mental Status Exam Alert and Oriented to: Time, Place, Person Cognitive Function: Good Patient Appearance: Well Groomed Mood: Hopeful Affect: Appropriate, Mood Congruent Patient Behavior: Appropriate, Cooperative Speech Pattern: Clear, Appropriate Voice Loudness: Normal Thought Process: Goal Oriented Thought Disorder: Not Present Hallucinations: Denies Suicidal Ideation: Denies Homicidal Ideation: Denies Insight/Judgement: Fair Sleep: Fair Appetite: Fair Muscle strength/Tone: Normal Gait/Station: Normal Psychiatric Treatment Plan - Problem List (1) Asthma Current Visit: Yes (2) Nicotine dependence Current Visit: Yes Qualifiers: Nicotine product type: cigarettes Substance use status: uncomplicated Qualified Code(s): F17.210 - Nicotine dependence, cigarettes, uncomplicated (3) neurodermatofibrosis Current Visit: Yes (4) Cocaine dependence Current Visit: Yes (5) Alcohol dependence Current Visit: Yes (6) Schizophrenia, paranoid Current Visit: Yes
[2016-06-06] MEDS: LIDOCAINE 5% TOPICAL PATCH TP SCH (10:14)
[2016-06-06] MEDS: CYCLOBENZAPRINE HCL 10 MG TABLET (FP) PO PRN (10:14)
[2016-06-06] MEDS: CITALOPRAM HYDROBROMIDE 20 MG TABLET (FP) PO SCH (10:18)
[2016-06-06] MEDS: RANITIDINE HCL 150 MG TABLET (FP) PO SCH (10:18)
[2016-06-06] MEDS: PRENATAL VITAMINS W/ FOLIC ACID TABLET (FP) PO SCH (10:19)
[2016-06-06] MEDS: NICOTINE 14 MG/24 HOURS TOPICAL PATCH TD SCH (10:19)
[2016-06-06] MEDS: HYDROCORTISONE 2.5% TOPICAL CREAM 30 GM TUBE TP SCH (10:20)
== END 2016-06-06 10:45 | disposition home or self-care (01) | DRG 772 ==
LOC: YASAS 18:48 → Y5N 20:05 → UNDOADMIN 20:05 → Y5N 22:20
PROVIDERS: ADMIT Psychiatry & Neurology Psychiatry; ATTEND Psychiatry & Neurology Psychiatry
PROC: HZ42ZZZ Group Counseling for Substance Abuse Treatment, Cognitive-Behavioral (ICD-10-PCS; principal; 2016-05-22)
DX: F10.20 Alcohol dependence, uncomplicated (principal); F14.20 Cocaine dependence, uncomplicated; F17.210 Nicotine dependence, cigarettes, uncomplicated; F20.0 Paranoid schizophrenia; J45.909 Unspecified asthma, uncomplicated; M54.5 Low back pain; G89.29 Other chronic pain; K59.00 Constipation, unspecified; R00.0 Tachycardia, unspecified; Q85.00 Neurofibromatosis, unspecified
CPT/HCPCS: 36415; 72100-TC; 80053; 81003; 85027; 86593; 93005; 93010

== ENCOUNTER 2018-05-28 14:06 | Inpatient (IN) | payer OTHER ==
[2018-05-28 15:36] VITALS: BMI 19.3
--- NOTE | 2018-05-28 16:00 | HP ---
CIWA Score - Admission Criteria [facility] Guidelines: Admission for Medically Managed Detox: Requires at least one of the followin. CIWA greater than 12 2. Seizures within the past 24 hours 3. Delirium tremens within the past 24 hours 4. Hallucinations within the past 24 hours 5. Acute intervention needed for co occurring medical disorder 6. Acute intervention needed for co occurring psychiatric disorder 7. Severe withdrawal that cannot be handled at a lower level of care (continued vomiting, continued diarrhea, abnormal vital signs) requiring intravenous medication and/or fluids 8. Admission ROS S - HPI Chief Complaint: alcohol and opal rehabilitation Allergies/Adverse Reactions: Allergies Allergy/AdvReac Type Severity Reaction Status Date / Time Penicillins Allergy Severe Difficulty Verified 05/28/18 15:15 Breathing fish derived Allergy Intermediate Hives Verified 05/28/18 15:15 pork derived (porcine) Allergy Intermediate Hives Verified 05/28/18 15:15 fish Allergy Intermediate Hives Uncoded 05/28/18 15:15 History of Present Illness: Patient is a 47 years old male with hx of alcohol, nicotine dependence is here for rehabilitation,completed detox today at [facility]. Reports hx neurofibromatosis, asthma. Psych: depression, reports linked to ACT team in the community and seroquel. Longest period of sobriety 5 years. Denies SI / HI Denies hx of seizures or blackouts . Hx of frequent falls with last fall three days ago Exam Limitations: No Limitations - Ebola screening Have you traveled outside of the country in the last 21 days: No (N) Have you had contact with anyone from an Ebola affected area: No Do you have a fever: No - Review of Systems Constitutional: Loss of Appetite, Unintentional Wgt. Loss (" tremendous from 185 to 127lb") Respiratory: reports: No Symptoms reported Cardiac: reports: Lightheadedness GI: reports: Diarrhea (x six days), Poor Appetite, Poor Fluid Intake, Abdominal cramping : reports: No Symptoms Reported Musculoskeletal: reports: Other (bilateral leg pain x three days) Integumentary: reports: See HPI Neuro: reports: Headache Endocrine: reports: Increased Thirst Hematology: reports: No Symptoms Reported Psychiatric: reports: Orientated x3, Anxious Other Systems: Reviewed and Negative Patient History - Patient Medical History Hx Anemia: No Hx Asthma: No Hx Chronic Obstructive Pulmonary Disease (COPD): No Hx Cancer: No Hx Cardiac Disorders: No Hx Congestive Heart Failure: No Hx Hypertension: No Hx Hypercholesterolemia: No Hx Pacemaker: No HX Cerebrovascular Accident: No Hx Seizures: No Hx Dementia: No Hx Diabetes: No Hx Gastrointestinal Disorders: No Hx Liver Disease: No Hx Genitourinary Disorders: No Hx Sexually Transmitted Disorders: No Hx Renal Disease (ESRD): No Hx Thyroid Disease: No Hx Human Immunodeficiency Virus (HIV): No (NEGATIVE HX last 2013) Hx Hepatitis C: No Hx Depression: Yes Hx Suicide Attempt: No Hx Bipolar Disorder: No Hx Schizophrenia: No Other Medical History: neurofibromatosis - Patient Surgical History Past Surgical History: Yes Hx Neurologic Surgery: No Hx Cataract Extraction: No Hx Cardiac Surgery: No Hx Lung Surgery: No Hx Breast Surgery: No Hx Breast Biopsy: No Hx Abdominal Surgery: No Hx Appendectomy: No Hx Cholecystectomy: No Hx Genitourinary Surgery: No Hx Section: No Hx Orthopedic Surgery: No Other Surgical History: dermatofiromatosis right leg 3 years ago Anesthesia Reaction: No - PPD History Previous Implant?: No Documented Results: Negative w/proof Date: 03/04/16 Results: 0MM PPD to be Administered?: Yes - Smoking Cessation Smoking history: Current every day smoker Have you smoked in the past 12 months: Yes Aproximately how many cigarettes per day: 20 Cigars Per Day: 0 Hx Chewing Tobacco Use: No Initiated information on smoking cessation: Yes 'Breaking Loose' booklet given: 05/28/18 - Substance & Tx. History Hx Alcohol Use: Yes Hx Substance Use: Yes Substance Use Type: Alcohol, Cocaine Hx Substance Use Treatment: Yes ([facility]ox [facility] discharged today ) - Substances abused Crack Substance route: Smoking Frequency: Daily Amount used: 7 bags Age of first use: 21 Date of last use: 05/24/18 Cocaine Substance route: Smoking Frequency: Daily Amount used: 7 bags Age of first use: 21 Date of last use: 05/24/18 Alcohol Substance route: Oral Frequency: Daily Amount used: (7) 24 oz cans of beer Age of first use: 16 Date of last use: 05/24/18 Family Disease History - Family Disease History Family Disease History: Diabetes: Grandparent (), Heart Disease: Grandparent, CA: Mother (SKIN CA-), Other: Father (IVD INJ/HIV/AIDS- ), Brother (alcohol) Admission Physical Exam S - Vital Signs Vital Signs: Vital Signs - 24 hr 05/28/18 05/28/18 15:19 15:46 Pulse Rate 108 H 108 H Respiratory 18 18 Rate Blood Pressure 114/77 114/77 - Physical General Appearance: Yes: Disheveled, Cachetic, Anxious HEENTM: Yes: EOMI, Hearing grossly Normal, Normal ENT Inspection, Normocephalic , Normal Voice, Pharynx Normal, Tm's normal Respiratory: Yes: Chest Non-Tender, Lungs Clear, Normal Breath Sounds, No Respiratory Distress, No Accessory Muscle Use Neck: Yes: Within Normal Limits Breast: Yes: Breast Exam Deferred Cardiology: Yes: Regular Rhythm, Regular Rate Abdominal: Yes: Normal Bowel Sounds, Non Tender, Flat, Soft Genitourinary: Yes: Within Normal Limits Back: Yes: Normal Inspection Musculoskeletal: Yes: full range of Motion, Gait Steady, Pelvis Stable Extremities: Yes: Normal Capillary Refill, Normal Inspection, Normal Range of Motion, Non-Tender Neurological: Yes: sweatband maker II-XII NML intact, Fully Oriented, Alert, Motor Strength 5/5, Normal Mood/Affect, Normal Response Integumentary: Yes: Normal Color, Warm, Other (generalized skin growth, tags on face, trunk, back) Lymphatic: Yes: Within Normal Limits - Diagnostic (1) Alcohol dependence Current Visit: Yes Status: Acute Qualifiers: Substance use status: uncomplicated Qualified Code(s): F10.20 - Alcohol dependence, uncomplicated (2) Cocaine dependence Current Visit: Yes Status: Acute (3) Asthma Current Visit: Yes Status: Chronic (4) History of neurofibromatosis Current Visit: Yes Status: Chronic (5) Nicotine dependence Current Visit: Yes Status: Chronic Qualifiers: Nicotine product type: cigarettes Substance use status: uncomplicated Qualified Code(s): F17.210 - Nicotine dependence, cigarettes, uncomplicated (6) Weight loss Current Visit: Yes Status: Chronic Breathalyzer - Breathalyzer Breathalyzer: 0 Urine Drug Screen - Test Device Lot number: [id number] Expiration date: 01/19/20 - Control Is test valid?: Yes - Results Drug screen NEGATIVE: No Urine drug screen results: OPAL-Cocaine, BZO-Benzodiazepines Inpatient Rehab Admission - Rehab Decision to Admit Inpatient rehab admission?: No - Initial Determination Are CD services needed?: Yes Free of communicable disease: Yes Not in need of hospitalization: Yes - Rehab Admission Criteria Previous failed treatment: Yes Poor recovery environment: Yes Comorbidities: Yes Lacks judgement: Yes Patient is meeting Inpatient Rehab admission criteria:: Yes
[2018-05-28] MEDS ORDERED: MENTHOL/PHENOL 1 EACH UD MM PRN (16:01)
[2018-05-28] MEDS ORDERED: MAGNESIUM CITRATE 300 ML BOTTLE PO PRN (16:01)
[2018-05-28] MEDS ORDERED: P-EPHED 60MG/TRIPROLIDI 2.5MG TABLET PO PRN (16:01)
[2018-05-28] MEDS ORDERED: MAGNESIUM HYDROX 2400MG/30ML ORAL SUSPENSION 30 ML CUP PO PRN (16:01)
[2018-05-28] MEDS ORDERED: MAG HYDROX/AL HYDROX/SIMETH 30 ML UNIT-DOSE CUP PO PRN (16:01)
[2018-05-28] MEDS ORDERED: guaiFENesin 200 MG/10 ML 10 ML UNIT-DOSE CUPS PO PRN (16:01)
[2018-05-28] MEDS: IBUPROFEN 400 MG TABLET (FP) PO PRN (17:31)
[2018-05-28] MEDS: LOPERAMIDE HCL 2 MG CAPSULE PO PRN (17:32)
[2018-05-28] MEDS: NICOTINE POLACRILEX 2 MG GUM BC PRN ×2 (18:10→21:25)
[2018-05-28] MEDS: THIAMINE HCL 100 MG TABLET (FP) PO SCH (21:25)
[2018-05-29] MEDS: IBUPROFEN 400 MG TABLET (FP) PO PRN ×4 (01:01→21:36)
[2018-05-29] MEDS: NICOTINE POLACRILEX 2 MG GUM BC PRN ×5 (06:17→20:43)
[2018-05-29] MEDS: PRENATAL VITAMINS W/ FOLIC ACID TABLET (FP) PO SCH (09:09)
[2018-05-29] MEDS: NICOTINE 14 MG/24 HOURS TOPICAL PATCH TD SCH (09:10)
[2018-05-29 09:53] LABS: ALBUMIN 2.7 g/dl (3.4-5.0); ALK PHOS 81 U/L (45-117); ANION GAP 7 MMOL/L (8-16); BILIRUBIN,TOTAL 0.2 mg/dL (0.2-1); BLOOD UREA NITROGEN 14 mg/dL (7-18); CALCIUM 8.4 mg/dL (8.5-10.1); CHLORIDE 108 mmol/L (98-107); CO2 28 mmol/L (21-32); CREATININE 0.4 mg/dL (0.55-1.3); GLUCOSE,RANDOM 89 mg/dL (74-106); POTASSIUM 4.2 mmol/L (3.5-5.1); SGOT/AST 4 U/L (15-37); SGPT/ALT 9 U/L (13-61); SODIUM 142 mmol/L (136-145); TOT PROT 6.2 g/dl (6.4-8.2)
[2018-05-29 10:00] LABS: HEMATOCRIT 35.1 % (35.4-49); MCH 29.9 pg (25.7-33.7); MCHC 34.1 g/dl (32.0-35.9); MEAN CELL VOLUME 87.6 fl (80-96); MEAN PLT VOLUME 8.4 fl (7.5-11.1); PLATELET COUNT 256 K/MM3 (134-434); RBC 4.01 M/mm3 (4.00-5.60); WHITE BLOOD COUNT 8.7 K/mm3 (4.0-10.0)
[2018-05-29 10:57] LABS: PH,URINE 7.5 (5.0-8.0); URINE APPEARANCE CLEAR; URINE BILIRUBIN NEGATIVE (NEGATIVE); URINE COLOR YELLOW; URINE GLUCOSE (UA) NEGATIVE (NEGATIVE); URINE KETONE TRACE (NEGATIVE); URINE LEUK ESTERASE NEGATIVE (NEGATIVE); URINE NITRITE NEGATIVE (NEGATIVE); URINE PROTEIN NEGATIVE (NEGATIVE)
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
[2018-05-29] MEDS ORDERED: FLU VACCINE QUAD 60 MCG/0.5 ML (MDV 18-19) IM ONE (12:00)
[2018-05-29] MEDS: SERTRALINE HCL 50 MG TABLET (FP) PO SCH (13:20)
[2018-05-29] MEDS: THIAMINE HCL 100 MG TABLET (FP) PO SCH (21:35)
[2018-05-29] MEDS: QUEtiapine FUMARATE 100 MG TABLET (FP) PO SCH (21:35)
[2018-05-30] MEDS: IBUPROFEN 400 MG TABLET (FP) PO PRN ×4 (06:08→23:43)
[2018-05-30] MEDS: PRENATAL VITAMINS W/ FOLIC ACID TABLET (FP) PO SCH (10:11)
[2018-05-30] MEDS: NICOTINE 14 MG/24 HOURS TOPICAL PATCH TD SCH (10:12)
[2018-05-30] MEDS: SERTRALINE HCL 50 MG TABLET (FP) PO SCH (10:12)
[2018-05-30] MEDS: NICOTINE POLACRILEX 2 MG GUM BC PRN ×4 (10:12→21:06)
[2018-05-30] MEDS: LOPERAMIDE HCL 2 MG CAPSULE PO PRN (10:12)
--- NOTE | 2018-05-30 16:40 | EKG ---
Test Reason : Blood Pressure : / mmHG Vent. Rate : 087 BPM Atrial Rate : 087 BPM P-R Int : 154 ms QRS Dur : 084 ms QT Int : 344 ms P-R-T Axes : 070 033 062 degrees QTc Int : 413 ms NORMAL SINUS RHYTHM POSSIBLE LEFT ATRIAL ENLARGEMENT LEFT VENTRICULAR HYPERTROPHY ABNORMAL ECG WHEN COMPARED WITH ECG OF 22-MAY-2016 23:18, NO SIGNIFICANT CHANGE WAS FOUND Confirmed by PENNY ESTEBAN, FELIPA ([id number]) on 05/30/2018 4:39:42 PM Referred By: Confirmed By:FELIPA FRANCIS MD
[2018-05-30] MEDS: QUEtiapine FUMARATE 100 MG TABLET (FP) PO SCH (21:04)
[2018-05-30] MEDS: THIAMINE HCL 100 MG TABLET (FP) PO SCH (21:04)
[2018-05-30] MEDS: ACETAMINOPHEN 325 MG TABLET (FP) PO PRN (21:05)
[2018-05-31] MEDS: NICOTINE POLACRILEX 2 MG GUM BC PRN ×5 (04:17→20:12)
[2018-05-31] MEDS: ACETAMINOPHEN 325 MG TABLET (FP) PO PRN ×3 (04:17→19:05)
[2018-05-31] MEDS: IBUPROFEN 400 MG TABLET (FP) PO PRN ×2 (07:34→14:25)
[2018-05-31] MEDS: NICOTINE 14 MG/24 HOURS TOPICAL PATCH TD SCH (10:11)
[2018-05-31] MEDS: PRENATAL VITAMINS W/ FOLIC ACID TABLET (FP) PO SCH (10:11)
[2018-05-31] MEDS: SERTRALINE HCL 50 MG TABLET (FP) PO SCH (10:11)
[2018-05-31] MEDS: LOPERAMIDE HCL 2 MG CAPSULE PO PRN (10:12)
--- NOTE | 2018-05-31 14:28 | PN ---
[facility] Progress Note Note: PATIENT SEEN FOR C/O DIARRHEA. PATIENT STATES HE HAS RECTAL CANCER AND WAS GIVEN CHEMO OUTPATIENT. PATIENT STATES DIARRHEA IS CHRONIC AND HAS HAD EPISODES OF INCONTINENCE. LAST PRN OF IMMODIUM EARLY THIS MORNING AROUND 4 AM. PATIENT DENIES NAUSEA AND VOMITING. AFEBRILE. WILL CONTINUE IMMODIUM PRN. Vital Signs Temperature 98.4 F 05/31/18 07:30 Pulse Rate 85 05/31/18 07:30 Respiratory Rate 18 05/31/18 07:30 Blood Pressure 111/73 05/31/18 07:30 O2 Sat by Pulse Oximetry (%)
[2018-05-31] MEDS ORDERED: IBUPROFEN 600 MG TABLET (FP) PO PRN (15:16)
[2018-05-31] MEDS: QUEtiapine FUMARATE 100 MG TABLET (FP) PO SCH (21:21)
[2018-05-31] MEDS: THIAMINE HCL 100 MG TABLET (FP) PO SCH (21:21)
[2018-05-31] MEDS: IBUPROFEN 600 MG TABLET (FP) PO PRN (21:21)
[2018-06-01] MEDS: ACETAMINOPHEN 325 MG TABLET (FP) PO PRN ×3 (02:21→21:24)
[2018-06-01] MEDS: IBUPROFEN 600 MG TABLET (FP) PO PRN ×3 (05:02→17:17)
[2018-06-01] MEDS: NICOTINE POLACRILEX 2 MG GUM BC PRN ×3 (06:48→17:35)
[2018-06-01] MEDS: PRENATAL VITAMINS W/ FOLIC ACID TABLET (FP) PO SCH (10:02)
[2018-06-01] MEDS: NICOTINE 14 MG/24 HOURS TOPICAL PATCH TD SCH (10:02)
[2018-06-01] MEDS: SERTRALINE HCL 50 MG TABLET (FP) PO SCH (10:02)
[2018-06-01] MEDS: QUEtiapine FUMARATE 100 MG TABLET (FP) PO SCH (21:24)
[2018-06-01] MEDS: THIAMINE HCL 100 MG TABLET (FP) PO SCH (21:24)
[2018-06-02] MEDS: IBUPROFEN 600 MG TABLET (FP) PO PRN ×4 (00:17→21:13)
[2018-06-02] MEDS: ACETAMINOPHEN 325 MG TABLET (FP) PO PRN ×3 (05:47→17:25)
[2018-06-02] MEDS: NICOTINE POLACRILEX 2 MG GUM BC PRN ×4 (05:48→19:28)
[2018-06-02] MEDS: PRENATAL VITAMINS W/ FOLIC ACID TABLET (FP) PO SCH (10:35)
[2018-06-02] MEDS: NICOTINE 14 MG/24 HOURS TOPICAL PATCH TD SCH (10:35)
[2018-06-02] MEDS: SERTRALINE HCL 50 MG TABLET (FP) PO SCH (10:35)
[2018-06-02] MEDS: THIAMINE HCL 100 MG TABLET (FP) PO SCH (21:14)
[2018-06-02] MEDS: QUEtiapine FUMARATE 100 MG TABLET (FP) PO SCH (21:14)
[2018-06-03] MEDS: ACETAMINOPHEN 325 MG TABLET (FP) PO PRN ×4 (03:05→21:47)
[2018-06-03] MEDS: NICOTINE POLACRILEX 2 MG GUM BC PRN ×6 (03:21→21:46)
[2018-06-03] MEDS: IBUPROFEN 600 MG TABLET (FP) PO PRN ×3 (06:13→19:16)
[2018-06-03] MEDS: ALBUTEROL SO4 8 GM HFA INHALER IH PRN (06:14)
[2018-06-03] MEDS: PRENATAL VITAMINS W/ FOLIC ACID TABLET (FP) PO SCH (10:08)
[2018-06-03] MEDS: NICOTINE 14 MG/24 HOURS TOPICAL PATCH TD SCH (10:08)
[2018-06-03] MEDS: SERTRALINE HCL 50 MG TABLET (FP) PO SCH (10:08)
[2018-06-03] MEDS: QUEtiapine FUMARATE 100 MG TABLET (FP) PO SCH (21:46)
[2018-06-03] MEDS: THIAMINE HCL 100 MG TABLET (FP) PO SCH (21:46)
[2018-06-04] MEDS: IBUPROFEN 600 MG TABLET (FP) PO PRN ×3 (03:51→15:47)
[2018-06-04] MEDS: ACETAMINOPHEN 325 MG TABLET (FP) PO PRN ×3 (07:55→18:59)
[2018-06-04] MEDS: NICOTINE POLACRILEX 2 MG GUM BC PRN ×4 (07:56→21:43)
[2018-06-04] MEDS: PRENATAL VITAMINS W/ FOLIC ACID TABLET (FP) PO SCH (10:34)
[2018-06-04] MEDS: NICOTINE 14 MG/24 HOURS TOPICAL PATCH TD SCH (10:34)
[2018-06-04] MEDS: SERTRALINE HCL 50 MG TABLET (FP) PO SCH (10:34)
[2018-06-04] MEDS: ALBUTEROL SO4 8 GM HFA INHALER IH PRN (10:36)
--- NOTE | 2018-06-04 19:06 | PN ---
[facility] Progress Note Note: Vital Signs Temperature 98.4 F 06/04/18 07:07 Pulse Rate 85 06/04/18 07:07 Respiratory Rate 18 06/04/18 07:07 Blood Pressure 103/57 L 06/04/18 07:07 O2 Sat by Pulse Oximetry (%) s/p unwitnessed fall in bathroom, reports felt dizzy and knees buckle, reports no injury or changes in LOC, reports hx of frequent "dizziness," rectal CA. Aoxx3 no acute distress, no changes in LOC s1 s2 no adventitious breath sounds skin intact , + multiple skin tags through body full ROM ambulating with cane no signs of trauma or injur Fall Protocol #1 Patient refused evaluation in ED and CT Scan meclazine PRN for vertigo increase PO fluids continue to monitor
[2018-06-04] MEDS: HYDROCORTISONE ACETATE 25 MG/SUPP.RECT PR SCH (21:34)
[2018-06-04] MEDS: THIAMINE HCL 100 MG TABLET (FP) PO SCH (21:34)
[2018-06-04] MEDS: NAPROXEN 500 MG TABLET (FP) PO SCH (21:34)
[2018-06-04] MEDS: QUEtiapine FUMARATE 100 MG TABLET (FP) PO SCH (21:34)
[2018-06-04] MEDS: MECLIZINE HCL 12.5 MG TABLET PO SCH (23:32)
[2018-06-05] MEDS: ACETAMINOPHEN 325 MG TABLET (FP) PO PRN ×3 (02:55→16:38)
[2018-06-05] MEDS: MECLIZINE HCL 12.5 MG TABLET PO SCH ×4 (06:11→23:02)
[2018-06-05] MEDS: NICOTINE POLACRILEX 2 MG GUM BC PRN ×5 (08:44→21:39)
[2018-06-05] MEDS: PRENATAL VITAMINS W/ FOLIC ACID TABLET (FP) PO SCH (10:11)
[2018-06-05] MEDS: SERTRALINE HCL 50 MG TABLET (FP) PO SCH (10:11)
[2018-06-05] MEDS: NAPROXEN 500 MG TABLET (FP) PO SCH ×2 (10:11→21:38)
[2018-06-05] MEDS: NICOTINE 14 MG/24 HOURS TOPICAL PATCH TD SCH (10:11)
[2018-06-05] MEDS: LOPERAMIDE HCL 2 MG CAPSULE PO PRN (16:39)
[2018-06-05] MEDS: MELATONIN 5 MG TABLETS PO PRN (21:38)
[2018-06-05] MEDS: QUEtiapine FUMARATE 100 MG TABLET (FP) PO SCH (21:38)
[2018-06-05] MEDS: THIAMINE HCL 100 MG TABLET (FP) PO SCH (21:38)
[2018-06-05] MEDS: HYDROCORTISONE ACETATE 25 MG/SUPP.RECT PR SCH (21:39)
[2018-06-06] MEDS: MECLIZINE HCL 12.5 MG TABLET PO SCH ×3 (06:17→17:56)
[2018-06-06] MEDS: ACETAMINOPHEN 325 MG TABLET (FP) PO PRN ×3 (06:17→21:25)
[2018-06-06] MEDS: NICOTINE POLACRILEX 2 MG GUM BC PRN ×3 (06:19→16:52)
[2018-06-06] MEDS: PRENATAL VITAMINS W/ FOLIC ACID TABLET (FP) PO SCH (10:09)
[2018-06-06] MEDS: NAPROXEN 500 MG TABLET (FP) PO SCH ×2 (10:09→21:24)
[2018-06-06] MEDS: SERTRALINE HCL 50 MG TABLET (FP) PO SCH (10:09)
[2018-06-06] MEDS: NICOTINE 14 MG/24 HOURS TOPICAL PATCH TD SCH (10:09)
[2018-06-06] MEDS: LOPERAMIDE HCL 2 MG CAPSULE PO PRN (21:24)
[2018-06-06] MEDS: THIAMINE HCL 100 MG TABLET (FP) PO SCH (21:24)
[2018-06-06] MEDS: QUEtiapine FUMARATE 100 MG TABLET (FP) PO SCH (21:25)
[2018-06-06] MEDS: HYDROCORTISONE ACETATE 25 MG/SUPP.RECT PR SCH (21:26)
[2018-06-07] MEDS: ACETAMINOPHEN 325 MG TABLET (FP) PO PRN ×3 (06:07→19:30)
[2018-06-07] MEDS: MECLIZINE HCL 12.5 MG TABLET PO SCH ×5 (06:08→23:21)
[2018-06-07] MEDS: NICOTINE POLACRILEX 2 MG GUM BC PRN ×3 (06:08→19:31)
[2018-06-07] MEDS: NICOTINE 14 MG/24 HOURS TOPICAL PATCH TD SCH (10:40)
[2018-06-07] MEDS: NAPROXEN 500 MG TABLET (FP) PO SCH ×2 (10:40→21:39)
[2018-06-07] MEDS: PRENATAL VITAMINS W/ FOLIC ACID TABLET (FP) PO SCH (10:40)
[2018-06-07] MEDS: SERTRALINE HCL 50 MG TABLET (FP) PO SCH (10:41)
[2018-06-07] MEDS: QUEtiapine FUMARATE 100 MG TABLET (FP) PO SCH (21:38)
[2018-06-07] MEDS: THIAMINE HCL 100 MG TABLET (FP) PO SCH (21:38)
[2018-06-07] MEDS: MELATONIN 5 MG TABLETS PO PRN (21:39)
[2018-06-07] MEDS: HYDROCORTISONE ACETATE 25 MG/SUPP.RECT PR SCH (21:39)
[2018-06-07] MEDS: LOPERAMIDE HCL 2 MG CAPSULE PO PRN (21:40)
[2018-06-08] MEDS: MECLIZINE HCL 12.5 MG TABLET PO SCH ×4 (06:25→23:14)
[2018-06-08] MEDS: ACETAMINOPHEN 325 MG TABLET (FP) PO PRN ×3 (06:50→18:49)
[2018-06-08] MEDS: NICOTINE POLACRILEX 2 MG GUM BC PRN ×5 (06:52→21:42)
[2018-06-08] MEDS: PRENATAL VITAMINS W/ FOLIC ACID TABLET (FP) PO SCH (10:10)
[2018-06-08] MEDS: SERTRALINE HCL 50 MG TABLET (FP) PO SCH (10:10)
[2018-06-08] MEDS: NICOTINE 14 MG/24 HOURS TOPICAL PATCH TD SCH (10:10)
[2018-06-08] MEDS: NAPROXEN 500 MG TABLET (FP) PO SCH ×2 (10:10→21:40)
[2018-06-08] MEDS: THIAMINE HCL 100 MG TABLET (FP) PO SCH (21:40)
[2018-06-08] MEDS: QUEtiapine FUMARATE 100 MG TABLET (FP) PO SCH (21:40)
[2018-06-08] MEDS: HYDROCORTISONE ACETATE 25 MG/SUPP.RECT PR SCH (21:41)
[2018-06-08] MEDS: MELATONIN 5 MG TABLETS PO PRN (21:41)
[2018-06-09] MEDS: NICOTINE POLACRILEX 2 MG GUM BC PRN ×3 (06:39→12:46)
[2018-06-09] MEDS: MECLIZINE HCL 12.5 MG TABLET PO SCH ×4 (06:39→23:35)
[2018-06-09] MEDS: ACETAMINOPHEN 325 MG TABLET (FP) PO PRN ×2 (06:39→12:44)
[2018-06-09] MEDS: NICOTINE 14 MG/24 HOURS TOPICAL PATCH TD SCH (10:29)
[2018-06-09] MEDS: SERTRALINE HCL 50 MG TABLET (FP) PO SCH (10:30)
[2018-06-09] MEDS: NAPROXEN 500 MG TABLET (FP) PO SCH ×2 (10:30→21:43)
[2018-06-09] MEDS: PRENATAL VITAMINS W/ FOLIC ACID TABLET (FP) PO SCH (10:30)
[2018-06-09] MEDS: hydrOXYzine PAMOATE 50 MG CAPSULE (FP) PO PRN (19:59)
[2018-06-09] MEDS: LOPERAMIDE HCL 2 MG CAPSULE PO PRN (19:59)
[2018-06-09] MEDS: THIAMINE HCL 100 MG TABLET (FP) PO SCH (21:43)
[2018-06-09] MEDS: HYDROCORTISONE ACETATE 25 MG/SUPP.RECT PR SCH (21:43)
[2018-06-09] MEDS: LIDOCAINE PATCH REMOVAL MC SCH (21:44)
[2018-06-09] MEDS: LIDOCAINE 5% TOPICAL PATCH TP SCH (21:44)
[2018-06-09] MEDS: QUEtiapine FUMARATE 100 MG TABLET (FP) PO SCH (21:46)
[2018-06-10] MEDS: ACETAMINOPHEN 325 MG TABLET (FP) PO PRN (06:07)
[2018-06-10] MEDS: MECLIZINE HCL 12.5 MG TABLET PO SCH ×4 (06:07→23:42)
[2018-06-10] MEDS: NICOTINE POLACRILEX 2 MG GUM BC PRN ×3 (06:08→15:35)
[2018-06-10] MEDS: NAPROXEN 500 MG TABLET (FP) PO SCH ×2 (10:31→21:27)
[2018-06-10] MEDS: NICOTINE 14 MG/24 HOURS TOPICAL PATCH TD SCH (10:31)
[2018-06-10] MEDS: SERTRALINE HCL 50 MG TABLET (FP) PO SCH (10:31)
[2018-06-10] MEDS: PRENATAL VITAMINS W/ FOLIC ACID TABLET (FP) PO SCH (10:31)
[2018-06-10] MEDS: LIDOCAINE 5% TOPICAL PATCH TP SCH (10:32)
[2018-06-10] MEDS ORDERED: TRIMETHOBENZAMIDE HCL 200MG/2ML INJ IM ONE (19:39)
[2018-06-10] MEDS: HYDROCORTISONE ACETATE 25 MG/SUPP.RECT PR SCH (21:26)
[2018-06-10] MEDS: MELATONIN 5 MG TABLETS PO PRN (21:27)
[2018-06-10] MEDS: THIAMINE HCL 100 MG TABLET (FP) PO SCH (21:27)
[2018-06-10] MEDS: LIDOCAINE PATCH REMOVAL MC SCH (21:27)
[2018-06-10] MEDS: QUEtiapine FUMARATE 100 MG TABLET (FP) PO SCH (21:27)
[2018-06-11] MEDS: MECLIZINE HCL 12.5 MG TABLET PO SCH ×4 (06:22→23:59)
[2018-06-11] MEDS: NICOTINE POLACRILEX 2 MG GUM BC PRN ×4 (06:22→19:41)
[2018-06-11] MEDS: ACETAMINOPHEN 325 MG TABLET (FP) PO PRN ×3 (06:22→19:39)
[2018-06-11] MEDS: SERTRALINE HCL 50 MG TABLET (FP) PO SCH (10:47)
[2018-06-11] MEDS: LIDOCAINE 5% TOPICAL PATCH TP SCH (10:47)
[2018-06-11] MEDS: PRENATAL VITAMINS W/ FOLIC ACID TABLET (FP) PO SCH (10:47)
[2018-06-11] MEDS: NAPROXEN 500 MG TABLET (FP) PO SCH ×2 (10:47→21:25)
[2018-06-11] MEDS: NICOTINE 14 MG/24 HOURS TOPICAL PATCH TD SCH (10:48)
[2018-06-11] MEDS: ALBUTEROL SO4 8 GM HFA INHALER IH PRN (10:50)
[2018-06-11] MEDS: LOPERAMIDE HCL 2 MG CAPSULE PO PRN (19:40)
--- NOTE | 2018-06-11 21:09 | PN ---
S Progress Note Note: States continued streaks of blood when wipes anal area. States hx GI cancer. Patient states was diagnosed at [facility] and will f/u there upon discharge. Wears a pull-up because of frequent diarrhea and risk for incontinence. Hx: Abd pain. Denies nausea or vomiting. Abd soft upon palpation. No guarding. No rebound. BS (+) External hemorrhoid noted. No bleeding noted at anal area. Vital Signs - 24 hr 06/11/18 06/11/18 06/11/18 00:30 03:30 06:39 Temperature 98.6 F Pulse Rate 92 H Respiratory 18 18 18 Rate Blood Pressure 131/71 Plan: External hemorrhoidal cream as needed. Encouraged to notify provider of any increase in bleeding or pain.
[2018-06-11] MEDS ORDERED: BENZOCAINE 28 GM HEMORRHOIDAL OINTMENT PR PRN (21:15)
[2018-06-11] MEDS: HYDROCORTISONE ACETATE 25 MG/SUPP.RECT PR SCH (21:25)
[2018-06-11] MEDS: QUEtiapine FUMARATE 100 MG TABLET (FP) PO SCH (21:25)
[2018-06-11] MEDS: LIDOCAINE PATCH REMOVAL MC SCH (21:25)
[2018-06-11] MEDS: THIAMINE HCL 100 MG TABLET (FP) PO SCH (21:25)
[2018-06-11] MEDS: MELATONIN 5 MG TABLETS PO PRN (21:26)
[2018-06-12] MEDS: MECLIZINE HCL 12.5 MG TABLET PO SCH ×4 (06:08→23:45)
[2018-06-12] MEDS: ACETAMINOPHEN 325 MG TABLET (FP) PO PRN (06:08)
[2018-06-12] MEDS: NICOTINE POLACRILEX 2 MG GUM BC PRN ×5 (06:08→22:43)
[2018-06-12] MEDS: PRENATAL VITAMINS W/ FOLIC ACID TABLET (FP) PO SCH (09:33)
[2018-06-12] MEDS: LIDOCAINE 5% TOPICAL PATCH TP SCH (09:33)
[2018-06-12] MEDS: NAPROXEN 500 MG TABLET (FP) PO SCH ×2 (09:33→21:59)
[2018-06-12] MEDS: NICOTINE 14 MG/24 HOURS TOPICAL PATCH TD SCH (09:34)
[2018-06-12] MEDS: SERTRALINE HCL 50 MG TABLET (FP) PO SCH (09:34)
[2018-06-12] MEDS: LOPERAMIDE HCL 2 MG CAPSULE PO PRN (15:45)
--- NOTE | 2018-06-12 18:05 | PN ---
Psychiatric Progress Note Vital Signs: Vital Signs Period Temp Pulse Resp BP Sys/Lin Pulse Ox Last 24 Hr 97.9 F 89 18-18 109/57 Date of Session: 06/12/18 Chief Complaint:: "i'm hearing voices" HPI: Patient states the voices are "whispering my name and telling me i'm no good." ROS: Patient alert and oriented X3 and coherent. Current Medications: Active Medications Generic Name Dose Route Start Last Admin Trade Name Freq PRN Reason Stop Dose Admin Acetaminophen 650 mg 05/28/18 16:01 06/12/18 06:08 Tylenol - PO 650 mg Q4H PRN Administration FEVER Al Hydroxide/Mg Hydroxide 30 ml 05/28/18 16:01 Mylanta Oral Suspension - PO Q6H PRN DYSPEPSIA Albuterol Sulfate 2 puff 05/28/18 16:01 06/11/18 10:50 Ventolin Hfa Inhaler - IH 2 puff Q4H PRN Administration ASTHMA Benzocaine 1 applic 06/11/18 21:15 06/12/18 09:34 Americaine Ointment - MI 1 applic Q4H PRN Administration HEMORRHOIDS Eucalyptus/Menthol/Phenol/Sorbitol 1 each 05/28/18 16:01 Cepastat Lozenge - MM Q4H PRN SORE THROAT Guaifenesin 10 ml 05/28/18 16:01 Robitussin - PO Q6H PRN COUGH Hydrocortisone Acetate 25 mg 06/04/18 22:00 06/11/18 21:25 Anusol Hc Suppository - MI 25 mg HS MATTHEW Administration Hydroxyzine Pamoate 50 mg 05/28/18 16:01 06/09/18 19:59 Vistaril - PO 50 mg Q4H PRN Administration AGITATION Lidocaine 1 patch 06/09/18 20:30 06/12/18 09:33 Lidoderm Patch - TP 1 patch DAILY MATTHEW Administration Loperamide HCl 4 mg 05/28/18 16:01 06/12/18 15:45 Imodium - PO 4 mg Q6H PRN Administration DIARRHEA Magnesium Citrate 300 ml 05/28/18 16:01 Citroma - PO Q48H PRN CONSTIPATION Magnesium Hydroxide 30 ml 05/28/18 16:01 Milk Of Magnesia - PO DAILY PRN CONSTIPATION Meclizine HCl 12.5 mg 06/05/18 00:00 06/12/18 12:07 Antivert - PO 12.5 mg Q6HPO MATTHEW Administration Melatonin 5 mg 05/28/18 22:00 06/11/18 21:26 Melatonin PO 5 mg HS PRN Administration INSOMNIA Miscellaneous 1 each 06/09/18 22:00 06/11/18 21:25 Lidoderm Patch Removal MC Not Given DAILY@2200 [facility] Naproxen 500 mg 06/04/18 22:00 06/12/18 09:33 Naprosyn - PO 500 mg BID MATTHEW Administration Nicotine 14 mg 05/29/18 10:00 06/12/18 09:34 Nicoderm Patch - TD 14 mg DAILY MATTHEW Administration Nicotine Polacrilex 2 mg 05/28/18 16:01 06/12/18 16:48 Nicorette Gum - BC 2 mg Q2H PRN Administration NICOTINE REPLACEMENT RX Multivit/Folic Acid/Iron 1 tab 05/29/18 10:00 06/12/18 09:33 Vitamins (Sjr) - PO 1 tab DAILY MATTHEW Administration Pseudoephedrine/Triprolidine 1 combo 05/28/18 16:01 Actifed - PO TID PRN NASAL CONGESTION Quetiapine Fumarate 100 mg 05/29/18 22:00 06/11/18 21:25 Seroquel - PO 100 mg HS MATTHEW Administration Quetiapine Fumarate 50 mg 06/12/18 18:01 Seroquel - PO 06/12/18 18:02 ONCE ONE Sertraline HCl 50 mg 05/29/18 12:45 06/12/18 09:34 Zoloft - PO 50 mg DAILY MATTHEW Administration Thiamine HCl 100 mg 05/28/18 22:00 06/11/18 21:25 Vitamin B1 - PO 100 mg HS MATTHEW Administration Medication(s) Change(s): Will order one time dose of seroquel 50mg HS and seroquel 50mg daily. Current Side Effect: No Lab tests ordered: No Lab tests reviewed: Yes Provider note:: Oil Lease Buyer asked to assess patient for suicidal ideation. Upon approach patient was calm, coherent, cooperative, alert and oriented X3. Dr. Christine's note read and appreciated. Patient with a history of schizophrena who presents this evening with auditory hallucinations with voices whispering his name and telling him he is no good. Mr. Álvarez states that the voices started at approximately 16:00. As per patient, the voices have resumed and intensified due to his chronic diarrhea and pain caused by his rectal cancer (stage III). At present patient denies thoughts or urges to hurt himself or others. States he feels safe at the moment but is not sure if he will endorse thoughts to hurt himself later this evening. Patient also stated that he was unsure if he would be able to inform staff if he does have thoughts to hurt himself. Patient reports h/o suicide attemps in the past. Patient agreeable to accepting psychotropic medications. Patient is currently prescribed seroquel 100mg HS. Will order a one time dose of 1) seroquel 50mg 2) patient to receive seroquel 100mg 06/12/18 3) Will order Seroquel 50mg daily beginning on 06/13/18. Will d/ c Seroquel 100mg on 06/13/18 and reorder Seroquel 150mg HS. Patient to be placed on 1:1 observation for safety. Transfer to psychiatric facility is not needed at this time. Patient to be evaluated tomorrow morning. Total face to face time:: 40 Mental Status Exam - Mental Status Exam Alert and Oriented to: Time, Place, Person Cognitive Function: Good Patient Appearance: Well Groomed Mood: Sad Affect: Mood Congruent Patient Behavior: Cooperative Speech Pattern: Appropriate Voice Loudness: Normal Thought Process: Goal Oriented Thought Disorder: Not Present Hallucinations: Denies Suicidal Ideation: Denies Homicidal Ideation: Denies Insight/Judgement: Poor Sleep: Fair Appetite: Fair Muscle strength/Tone: Normal Gait/Station: Other (Ambulates with a cane.) Psychiatric Treatment Plan - Problem List (1) Alcohol dependence Qualifiers: Substance use status: uncomplicated Qualified Code(s): F10.20 - Alcohol dependence, uncomplicated (2) Cocaine dependence Qualifiers: Substance use status: uncomplicated Qualified Code(s): F14.20 - Cocaine dependence, uncomplicated (3) Substance induced mood disorder Comment: .. (4) Substance-induced sleep disorder Comment: .. (5) Schizophrenia, paranoid Comment: ..
[2018-06-12] MEDS ORDERED: QUEtiapine FUMARATE 50 MG TABLET PO ONE (18:15)
--- NOTE | 2018-06-12 18:17 | PN ---
S Progress Note Note: Pt seen today for rectal bleeding. Pt has h/o rectal cancer and has had bleeding for several weeks. Pt here for rehab from crack cocaine use. Pt is homeless and is in discussion with counselor for a custodial bed Pt was put on 1:1 earlier today by counseling psychologist for hearing voices- pt states he is under stress from the cancer and being homeless c/o decreased appetite and pain in anal area from wiping Toilet noted to have some blood stain along with stool- pt has no abd pain Vs as noted Vital Signs - 24 hr 06/12/18 06/12/18 06/12/18 00:30 03:30 06:47 Temperature 97.9 F Pulse Rate 89 Respiratory 18 18 18 Rate Blood Pressure 109/57 L a/p: rectal cancer- small amount of blood noted in toilet bowl with stool will order CBC, last Hct 35 on 05/29 Periactin for appetite Vaseline ointment for soothing relief of rectal area
--- NOTE | 2018-06-12 21:20 | PN ---
[facility] Progress Note Note: Psychiatry Attending's on-call note (delayed) : Case was discussed around 5:45 PM with coffin maker Cinthya Vides. Chart reviewed. Hospital course revisited. Progress notes : appreciated. Agree with AKANKSHA Ortez's intervention.
[2018-06-12] MEDS: HYDROCORTISONE ACETATE 25 MG/SUPP.RECT PR SCH (21:58)
[2018-06-12] MEDS: LIDOCAINE PATCH REMOVAL MC SCH (21:58)
[2018-06-12] MEDS: QUEtiapine FUMARATE 100 MG TABLET (FP) PO SCH (21:59)
[2018-06-12] MEDS: THIAMINE HCL 100 MG TABLET (FP) PO SCH (21:59)
[2018-06-13] MEDS: CYPROHEPTADINE HCL 4 MG TABLET PO SCH ×3 (06:27→17:19)
[2018-06-13] MEDS: MECLIZINE HCL 12.5 MG TABLET PO SCH ×3 (06:28→17:19)
[2018-06-13] MEDS: ACETAMINOPHEN 325 MG TABLET (FP) PO PRN ×2 (06:28→19:30)
[2018-06-13] MEDS: NICOTINE 14 MG/24 HOURS TOPICAL PATCH TD SCH (10:15)
[2018-06-13] MEDS: SERTRALINE HCL 50 MG TABLET (FP) PO SCH (10:15)
[2018-06-13] MEDS: LIDOCAINE 5% TOPICAL PATCH TP SCH (10:15)
[2018-06-13] MEDS: NAPROXEN 500 MG TABLET (FP) PO SCH ×2 (10:15→21:44)
[2018-06-13] MEDS: PRENATAL VITAMINS W/ FOLIC ACID TABLET (FP) PO SCH (10:15)
[2018-06-13] MEDS: hydrOXYzine PAMOATE 50 MG CAPSULE (FP) PO PRN (10:15)
--- NOTE | 2018-06-13 10:17 | PN ---
Psychiatric Progress Note Vital Signs: Vital Signs Period Temp Pulse Resp BP Sys/Lin Pulse Ox Last 24 Hr 97.6 F 93 18-18 98/70 Date of Session: 06/13/18 Chief Complaint:: "i do not want to hurt myself." HPI: Reassessment of 1:1 ROS: Patient alert and oriented X3. Patient is coherent but reports hearing voices that are whispering his name and telling him he is no good. States the voices are less today than they were yesterday. Current Medications: Active Medications Generic Name Dose Route Start Last Admin Trade Name Freq PRN Reason Stop Dose Admin Acetaminophen 650 mg 05/28/18 16:01 06/13/18 06:28 Tylenol - PO 650 mg Q4H PRN Administration FEVER Al Hydroxide/Mg Hydroxide 30 ml 05/28/18 16:01 Mylanta Oral Suspension - PO Q6H PRN DYSPEPSIA Albuterol Sulfate 2 puff 05/28/18 16:01 06/11/18 10:50 Ventolin Hfa Inhaler - IH 2 puff Q4H PRN Administration ASTHMA Benzocaine 1 applic 06/11/18 21:15 06/12/18 09:34 Americaine Ointment - AK 1 applic Q4H PRN Administration HEMORRHOIDS Cyproheptadine HCl 4 mg 06/13/18 07:00 06/13/18 10:15 Periactin - PO 4 mg TIDAC MATTHEW Administration Eucalyptus/Menthol/Phenol/Sorbitol 1 each 05/28/18 16:01 Cepastat Lozenge - MM Q4H PRN SORE THROAT Guaifenesin 10 ml 05/28/18 16:01 Robitussin - PO Q6H PRN COUGH Hydrocortisone Acetate 25 mg 06/04/18 22:00 06/12/18 21:58 Anusol Hc Suppository - AK Not Given HS MATTHEW Hydroxyzine Pamoate 50 mg 05/28/18 16:01 06/13/18 10:15 Vistaril - PO 50 mg Q4H PRN Administration AGITATION Lidocaine 1 patch 06/09/18 20:30 06/13/18 10:15 Lidoderm Patch - TP 1 patch DAILY MATTHEW Administration Loperamide HCl 4 mg 05/28/18 16:01 06/12/18 15:45 Imodium - PO 4 mg Q6H PRN Administration DIARRHEA Magnesium Citrate 300 ml 05/28/18 16:01 Citroma - PO Q48H PRN CONSTIPATION Magnesium Hydroxide 30 ml 05/28/18 16:01 Milk Of Magnesia - PO DAILY PRN CONSTIPATION Meclizine HCl 12.5 mg 06/05/18 00:00 06/13/18 06:28 Antivert - PO 12.5 mg Q6HPO MATTHEW Administration Melatonin 5 mg 05/28/18 22:00 06/11/18 21:26 Melatonin PO 5 mg HS PRN Administration INSOMNIA Miscellaneous 1 each 06/09/18 22:00 06/12/18 21:58 Lidoderm Patch Removal MC 1 each DAILY@2200 MATTHEW Administration Naproxen 500 mg 06/04/18 22:00 06/13/18 10:15 Naprosyn - PO 500 mg BID MATTHEW Administration Nicotine 14 mg 05/29/18 10:00 06/13/18 10:15 Nicoderm Patch - TD 14 mg DAILY MATTHEW Administration Nicotine Polacrilex 2 mg 05/28/18 16:01 06/12/18 22:43 Nicorette Gum - BC 2 mg Q2H PRN Administration NICOTINE REPLACEMENT RX Multivit/Folic Acid/Iron 1 tab 05/29/18 10:00 06/13/18 10:15 Vitamins (Sjr) - PO 1 tab DAILY MATTHEW Administration Pseudoephedrine/Triprolidine 1 combo 05/28/18 16:01 Actifed - PO TID PRN NASAL CONGESTION Quetiapine Fumarate 100 mg 05/29/18 22:00 06/12/18 21:59 Seroquel - PO 100 mg HS MATTHEW Administration Risperidone 1 mg 06/13/18 10:15 Risperdal - PO DAILY MATTHEW Sertraline HCl 50 mg 05/29/18 12:45 06/13/18 10:15 Zoloft - PO 50 mg DAILY MATTHEW Administration Thiamine HCl 100 mg 05/28/18 22:00 06/12/18 21:59 Vitamin B1 - PO Not Given HS MATTHEW Medication(s) Change(s): 1)Will d/c seroquel 50mg daily 2) will order risperdal 1mg daily Current Side Effect: No Lab tests ordered: No Lab tests reviewed: Yes Provider note:: Statement Processor met with patient to reassess for 1:1 observation. Patient was placed on 1:1 observation yesterday afternoon after reporting hearing voices that are whispering his name and telling him he is no good. He reported feeling unsafe and was not sure if he would have urges to hurt himself in the evening. Patient was than placed on 1:1 for safety after stating he was unsure if he would be able to talk to staff before hurting himself. This morning patient presents as mildly lethargic, coherent, alert and oriented x3. He states the "voices went away last night but returned this morning". States " the voices are less today but they whisper my name and tell me i am no good." Patient denies thoughts or urges to hurt himself at the moment. Mr. Álvarez states that he can speak to staff if begins to have urges to hurt himself. States the Seroquel he accepted yesterday afternoon was effective but made him too tired. After speaking to counselor, business writer was made aware that patient is managed by [facility] who reported that patient has a history of noncompliance to treatment and medications. Mr. Álvarez is also homeless and does not want to return to his longterm. Patient's counselor on 3W also informed business writer that patient was rejected by two nursing homes which he is aware of. Patient frustratd about his denial but remains hopeful that he will be accepted into another alf. Patient may also be malingering as he has become "symptomatic" towards the end of his discharge as he has yet to be accepted to a alf or outside facility for retirement care and is not committed to returning to his longterm. At present, patient is willing to accept psychotropic medications. Due to feeling lethargic this morning and history of falls, Seroquel evening dose will remain at 100mg HS. Seroquel 50mg daily will be discontinued and risperdal 1mg daily will be ordered. Risperdal 0.5mg BID PRN will be ordered to address irritability and hallucinations. Cogentin 0.5mg BID PRN ordered for EPS. 1:1 to be discontinued. Nursing staff informed. Total face to face time:: 45 Mental Status Exam - Mental Status Exam Alert and Oriented to: Time, Place, Person Cognitive Function: Good Patient Appearance: Unkempt Mood: Sad Affect: Mood Congruent Patient Behavior: Cooperative Speech Pattern: Appropriate Voice Loudness: Normal Thought Process: Goal Oriented Thought Disorder: Not Present Hallucinations: Auditory (Voices stating his name and telling him he's no good.) Suicidal Ideation: Denies Homicidal Ideation: Denies Insight/Judgement: Poor Sleep: Poorly Appetite: Fair Muscle strength/Tone: Normal Gait/Station: Normal Psychiatric Treatment Plan - Problem List (1) Alcohol dependence Qualifiers: Substance use status: uncomplicated Qualified Code(s): F10.20 - Alcohol dependence, uncomplicated (2) Cocaine dependence Qualifiers: Substance use status: uncomplicated Qualified Code(s): F14.20 - Cocaine dependence, uncomplicated (3) Substance induced mood disorder Comment: .. (4) Substance-induced sleep disorder Comment: .. (5) Schizophrenia, paranoid Comment: ..
[2018-06-13 10:19] LABS: BASO % 0.9 % (0-2.0); EOS % 12.1 % (0-4.5); HEMATOCRIT 31.7 % (35.4-49); HEMOGLOBIN 10.5 GM/dL (11.7-16.9); LYMPH % 10.5 % (8-40); MCH 28.7 pg (25.7-33.7); MCHC 33.2 g/dl (32.0-35.9); MEAN CELL VOLUME 86.4 fl (80-96); MONO % 12.5 % (3.8-10.2); PLATELET COUNT 311 K/MM3 (134-434); RBC 3.67 M/mm3 (4.00-5.60); RDW 14.6 % (11.9-15.9); WHITE BLOOD COUNT 7.4 K/mm3 (4.0-10.0)
[2018-06-13] MEDS: NICOTINE POLACRILEX 2 MG GUM BC PRN ×3 (10:33→21:47)
[2018-06-13] MEDS: LOPERAMIDE HCL 2 MG CAPSULE PO PRN (10:35)
[2018-06-13] MEDS ORDERED: risperiDONE 0.5 MG TABLET (FP) PO PRN ×2 (10:47→10:51)
[2018-06-13] MEDS ORDERED: BENZTROPINE MESYLATE 1 MG TABLET (FP) PO PRN (10:48)
[2018-06-13] MEDS: risperiDONE 1 MG TABLET (FP) PO SCH (12:09)
--- NOTE | 2018-06-13 13:45 | PN ---
[facility] Progress Note Note: Phone discussion of patient status with Dr. Lagos from [facility]. Explained patient present situation (rectal cancer, homeless, high risk for relapse, present complaints of hearing voices telling him to hurt himself) and clinical condition. Dropping hemoglobin and hematocrit, rectal bleeding related to diagnosis of rectal cancer. In addition, difficulty with placement because of physical condition. Recommendation from Dr. Lagos from [place] was to transfer to [facility] for cancer treatment and follow up by Psychiatry at [facility]. Dr. Lagos will also confer with [facility] about Mr. Álvarez's rectal cancer treatment. Will share information with counselor. Phone number: [phone].
[2018-06-13] MEDS ORDERED: ACETAMINOPHEN 325 MG TABLET (FP) PO ONE (13:46)
--- NOTE | 2018-06-13 13:59 | PN ---
[facility] Progress Note Note: client with anal cancer stage 3; Hgb/HCt dropping. On 05/29 Hgb was 12, now it is 10.5 on 06/13. The HCT was 35.1, it is now 31.5. Client states he has had blood in his stool and this was observed last night. PLAN: Continue to monitor CBC, and ferrous sulfate ordered. CBC WBC 7.4 K/mm3 (4.0-10.0) 06/13/18 08:00 RBC 3.67 M/mm3 (4.00-5.60) L 06/13/18 08:00 Hgb 10.5 GM/dL (11.7-16.9) L 06/13/18 08:00 Hct 31.7 % (35.4-49) L 06/13/18 08:00 MCV 86.4 fl (80-96) 06/13/18 08:00 MCH 28.7 pg (25.7-33.7) 06/13/18 08:00 MCHC 33.2 g/dl (32.0-35.9) 06/13/18 08:00 RDW 14.6 % (11.9-15.9) 06/13/18 08:00 Plt Count 311 K/MM3 (134-434) D 06/13/18 08:00 MPV 8.0 fl (7.5-11.1) 06/13/18 08:00 Absolute Neuts (auto) 4.7 K/mm3 (1.5-8.0) 06/13/18 08:00 Neutrophils % 64.0 % (42.8-82.8) 06/13/18 08:00 Lymphocytes % 10.5 % (8-40) 06/13/18 08:00 Monocytes % 12.5 % (3.8-10.2) H 06/13/18 08:00 Eosinophils % 12.1 % (0-4.5) H 06/13/18 08:00 Basophils % 0.9 % (0-2.0) 06/13/18 08:00 Nucleated RBC % 0 % (0-0) 06/13/18 08:00 Vital Signs (72 hours) 06/11/18 06/11/18 06/11/18 00:30 03:30 06:39 Temperature 98.6 F Pulse Rate 92 H Respiratory 18 18 18 Rate Blood Pressure 131/71 06/12/18 06/12/18 06/12/18 00:30 03:30 06:47 Temperature 97.9 F Pulse Rate 89 Respiratory 18 18 18 Rate Blood Pressure 109/57 L 06/13/18 06/13/18 06/13/18 00:30 03:30 06:53 Temperature 97.6 F Pulse Rate 93 H Respiratory 18 18 18 Rate Blood Pressure 98/70
--- NOTE | 2018-06-13 15:28 | PN ---
[facility] Progress Note Note: patient was told that he will be discharged tomorrow. Now states that he is suicidal, has no hope, and only awaits him. reproductive endocrinologist Peewee notified of patient's statement. Patient will be placed back on 1:1 observation.
--- NOTE | 2018-06-13 16:42 | PN ---
Psychiatric Progress Note Vital Signs: Vital Signs Period Temp Pulse Resp BP Sys/Lin Pulse Ox Last 24 Hr 97.6 F 93 18-18 98/70 Date of Session: 06/13/18 Chief Complaint:: "If i get discharge i will hurt myself." HPI: Patient reporting suicidal ideation after he was informed that he will be discharged tomorrow. ROS: Patient coherent, alert and oriented X3. Current Medications: Active Medications Generic Name Dose Route Start Last Admin Trade Name Freq PRN Reason Stop Dose Admin Acetaminophen 650 mg 05/28/18 16:01 06/13/18 06:28 Tylenol - PO 650 mg Q4H PRN Administration FEVER Al Hydroxide/Mg Hydroxide 30 ml 05/28/18 16:01 Mylanta Oral Suspension - PO Q6H PRN DYSPEPSIA Albuterol Sulfate 2 puff 05/28/18 16:01 06/11/18 10:50 Ventolin Hfa Inhaler - IH 2 puff Q4H PRN Administration ASTHMA Benzocaine 1 applic 06/11/18 21:15 06/12/18 09:34 Americaine Ointment - AL 1 applic Q4H PRN Administration HEMORRHOIDS Benztropine Mesylate 0.5 mg 06/13/18 10:48 Cogentin - PO BID PRN EPS Cyproheptadine HCl 4 mg 06/13/18 07:00 06/13/18 10:15 Periactin - PO 4 mg TIDAC MATTHEW Administration Eucalyptus/Menthol/Phenol/Sorbitol 1 each 05/28/18 16:01 Cepastat Lozenge - MM Q4H PRN SORE THROAT Ferrous Gluconate 324 mg 06/13/18 17:30 Fergon - PO TIDCM MATTHEW Guaifenesin 10 ml 05/28/18 16:01 Robitussin - PO Q6H PRN COUGH Hydrocortisone Acetate 25 mg 06/04/18 22:00 06/12/18 21:58 Anusol Hc Suppository - AL Not Given HS MATTHEW Hydroxyzine Pamoate 50 mg 05/28/18 16:01 06/13/18 10:15 Vistaril - PO 50 mg Q4H PRN Administration AGITATION Lidocaine 1 patch 06/09/18 20:30 06/13/18 10:15 Lidoderm Patch - TP 1 patch DAILY MATTHEW Administration Loperamide HCl 4 mg 05/28/18 16:01 06/13/18 10:35 Imodium - PO 4 mg Q6H PRN Administration DIARRHEA Magnesium Citrate 300 ml 05/28/18 16:01 Citroma - PO Q48H PRN CONSTIPATION Magnesium Hydroxide 30 ml 05/28/18 16:01 Milk Of Magnesia - PO DAILY PRN CONSTIPATION Meclizine HCl 12.5 mg 06/05/18 00:00 06/13/18 13:00 Antivert - PO 12.5 mg Q6HPO MATTHEW Administration Melatonin 5 mg 05/28/18 22:00 06/11/18 21:26 Melatonin PO 5 mg HS PRN Administration INSOMNIA Miscellaneous 1 each 06/09/18 22:00 06/12/18 21:58 Lidoderm Patch Removal MC 1 each DAILY@2200 MATTHEW Administration Naproxen 500 mg 06/04/18 22:00 06/13/18 10:15 Naprosyn - PO 500 mg BID MATTHEW Administration Nicotine 14 mg 05/29/18 10:00 06/13/18 10:15 Nicoderm Patch - TD 14 mg DAILY MATTHEW Administration Nicotine Polacrilex 2 mg 05/28/18 16:01 06/13/18 10:33 Nicorette Gum - BC 2 mg Q2H PRN Administration NICOTINE REPLACEMENT RX Multivit/Folic Acid/Iron 1 tab 05/29/18 10:00 06/13/18 10:15 Vitamins (Sjr) - PO 1 tab DAILY MATTHEW Administration Pseudoephedrine/Triprolidine 1 combo 05/28/18 16:01 Actifed - PO TID PRN NASAL CONGESTION Quetiapine Fumarate 100 mg 05/29/18 22:00 06/12/18 21:59 Seroquel - PO 100 mg HS MATTHEW Administration Risperidone 1 mg 06/13/18 10:15 06/13/18 12:09 Risperdal - PO 1 mg DAILY MATTHEW Administration Risperidone 0.5 mg 06/13/18 10:51 Risperdal - PO BID PRN halluincations/agitation Sertraline HCl 50 mg 05/29/18 12:45 06/13/18 10:15 Zoloft - PO 50 mg DAILY MATTHEW Administration Thiamine HCl 100 mg 05/28/18 22:00 06/12/18 21:59 Vitamin B1 - PO Not Given HS MATTHEW Medication(s) Change(s): No. Current Side Effect: No Lab tests ordered: No Lab tests reviewed: Yes Provider note:: As per nursing staff patient reported that he was suicidal after he was informed by his social worker delinquency prevention that he will be discharged tomorrow. Upon approach, patient was observed to be resting in bed and mildly irritable. Patient stated to mortgage loan underwriter, "i am upset. I have no where to go so now i am having thoughts to hurt myself." Patient also reported, " The voices are now telling me to hurt myself." Patient denies having urges to hurt himself on the unit. Mr. Álvarez stated to mortgage loan underwriter, "I feel safe here. I won't hurt myself right now." When asked if he had a plan to hurt himself if discharged, patient responded, "whatever comes to mind. I don't know. Maybe get hit by a car." Malingering suspected. Patient seeking secondary gains as he has no place of residence. Patient resistent to returning to his [facility]. As per social worker delinquency prevention patient owes a drug dealer approximately $2000. Patient does not present as psychotic. Hallucinations are questionable. Patient was asymtompatic throughout his admission but after being informed that he was denied by two nursing homes patient began to report hallucinations and suicidal ideation. Patient placed on 1:1 observation. Possible transfer to [facility] emergency room tomorrow for further psychiatric evaluation. Nursing staff informed. Total face to face time:: 35 Mental Status Exam - Mental Status Exam Alert and Oriented to: Time, Place, Person Cognitive Function: Good Patient Appearance: Unkempt Mood: Sad, Irritable (slightly irritable) Affect: Mood Congruent Patient Behavior: Cooperative Speech Pattern: Clear Voice Loudness: Normal Thought Process: Goal Oriented Thought Disorder: Not Present Hallucinations: Auditory (Reports voices telling him to hurt himself) Suicidal Ideation: Current, Plan (If discharge "to get hit by car or whatever comes to mind") Homicidal Ideation: Denies Insight/Judgement: Poor Sleep: Fair Appetite: Fair Muscle strength/Tone: Normal Gait/Station: Other (Ambulates with a cane.) Psychiatric Treatment Plan - Problem List (1) Alcohol dependence Current Visit: Yes Qualifiers: Substance use status: uncomplicated Qualified Code(s): F10.20 - Alcohol dependence, uncomplicated (2) Cocaine dependence Current Visit: Yes (3) Substance induced mood disorder Current Visit: Yes (4) Substance-induced sleep disorder Current Visit: Yes (5) Schizophrenia, paranoid Current Visit: Yes (6) Malingering Current Visit: No Comment: Suspected malingering
[2018-06-13] MEDS: FERROUS GLUCONATE 324 MG TAB (FP) PO SCH (17:19)
[2018-06-13] MEDS: MELATONIN 5 MG TABLETS PO PRN (21:44)
[2018-06-13] MEDS: QUEtiapine FUMARATE 100 MG TABLET (FP) PO SCH (21:44)
[2018-06-13] MEDS: THIAMINE HCL 100 MG TABLET (FP) PO SCH (21:44)
[2018-06-13] MEDS: LIDOCAINE PATCH REMOVAL MC SCH (21:44)
[2018-06-13] MEDS: HYDROCORTISONE ACETATE 25 MG/SUPP.RECT PR SCH (21:44)
[2018-06-14] MEDS: MECLIZINE HCL 12.5 MG TABLET PO SCH ×4 (01:47→17:02)
[2018-06-14] MEDS: CYPROHEPTADINE HCL 4 MG TABLET PO SCH ×3 (06:07→17:01)
[2018-06-14] MEDS: ACETAMINOPHEN 325 MG TABLET (FP) PO PRN (06:08)
[2018-06-14] MEDS: NICOTINE POLACRILEX 2 MG GUM BC PRN ×2 (06:08→15:10)
[2018-06-14] MEDS: FERROUS GLUCONATE 324 MG TAB (FP) PO SCH ×3 (07:07→17:01)
--- NOTE | 2018-06-14 10:28 | PN ---
[facility] Progress Note Note: REPORT BY STAFF ABOUT PT ON 1:1 MONITORING FOR S/I SINCE YESTERDAY. PT IN BED, CALM, APPROPRIATE RESPONSE TO GREETING. PT WAS SEEN BY PSYCH CONSULT(SEE PSYCH NOTE). APPARENTLY, PT EXPRESSED S/I WHEN TOLD HE WAS DISCHARGING TODAY PER PSYCH NOTES. PT'S DISCHARGE PLAN CASE WAS DISCUSSED YESTERDAY BY THE PROVIDER JAMARCUS SIDDIQI NP WITH DR. BUTTS FROM [facility] WHO STATED THAT PT SHOULD FOLLOW UP WITH [facility] WHERE HE HAS HIS ONCOLOGIST AND WILL ACCESS PSYCHIATRIC AND OTHER SERVICES(PLEASE SEE MS SIDDIQI' NOTES OF 06/13/18). MS RODGERS THE PT'S COUNSELOR STATES SHE SPOKE WITH [employer] TODAY WHO CONFIRMED THAT THIS PATIENT'S INSURANCE WANTS HIM TO GO TO [facility] FOR MANAGEMENT OF HIS MEDICAL AND OTHER CARE. THIS CASE WAS DISCUSSED WITH DR. EASLEY,ACTING TIP PUNCHER AND LOLI KAUFMAN, DIRECTOR FOR CLINICAL SERVICES WHO WILL LOOK INTO PT'S DISCHARGE PLANS WITH [facility]. Vital Signs 06/14/18 06:27 Temperature 98.2 F Pulse Rate 85 Respiratory 16 Rate Blood Pressure 90/62 Laboratory Tests 05/29/18 05/29/18 05/29/18 06:00 06:00 06:00 WBC 8.7 RBC 4.01 Hgb 12.0 Hct 35.1 L MCV 87.6 MCH 29.9 MCHC 34.1 RDW 15.0 D Plt Count 256 MPV 8.4 Absolute Neuts (auto) Neutrophils % Lymphocytes % Monocytes % Eosinophils % Basophils % Nucleated RBC % Sodium 142 Potassium 4.2 Chloride 108 H Carbon Dioxide 28 Anion Gap 7 L BUN 14 Creatinine 0.4 L Creat Clearance w eGFR 231.59 Random Glucose 89 Calcium 8.4 L Total Bilirubin 0.2 AST 4 L ALT 9 L Alkaline Phosphatase 81 Total Protein 6.2 L Albumin 2.7 L Urine Color Urine Appearance Urine pH Ur Specific [place] Urine Protein Urine Glucose (UA) Urine Ketones Urine Blood Urine Nitrite Urine Bilirubin Urine Urobilinogen Ur Leukocyte Esterase RPR Titer Nonreactive HIV 1&2 Antibody Screen HIV P24 Antigen 05/29/18 05/29/18 06/13/18 06:00 07:30 08:00 WBC 7.4 RBC 3.67 L Hgb 10.5 L Hct 31.7 L MCV 86.4 MCH 28.7 MCHC 33.2 RDW 14.6 Plt Count 311 D MPV 8.0 Absolute Neuts (auto) 4.7 Neutrophils % 64.0 Lymphocytes % 10.5 Monocytes % 12.5 H Eosinophils % 12.1 H Basophils % 0.9 Nucleated RBC % 0 Sodium Potassium Chloride Carbon Dioxide Anion Gap BUN Creatinine Creat Clearance w eGFR Random Glucose Calcium Total Bilirubin AST ALT Alkaline Phosphatase Total Protein Albumin Urine Color Yellow Urine Appearance Clear Urine pH 7.5 Ur Specific [place] 1.020 Urine Protein Negative Urine Glucose (UA) Negative Urine Ketones Trace H Urine Blood Negative Urine Nitrite Negative Urine Bilirubin Negative Urine Urobilinogen 1.0 Ur Leukocyte Esterase Negative RPR Titer HIV 1&2 Antibody Screen Negative HIV P24 Antigen Negative PLAN:REPEAT CBC,CMP,UA FOLLOW UP WITH HGB/HCT RESULT FOLLOW UP WITH TREATMENT TEAM RE:DISCHARGE PLANNING TO [facility]. TRANSFER TO [facility] ER IF DECREASING HGB/HCT.
[2018-06-14] MEDS: SERTRALINE HCL 50 MG TABLET (FP) PO SCH (10:45)
[2018-06-14] MEDS: NICOTINE 14 MG/24 HOURS TOPICAL PATCH TD SCH (10:45)
[2018-06-14] MEDS: NAPROXEN 500 MG TABLET (FP) PO SCH ×2 (10:45→22:12)
[2018-06-14] MEDS: LIDOCAINE 5% TOPICAL PATCH TP SCH (10:45)
[2018-06-14] MEDS: PRENATAL VITAMINS W/ FOLIC ACID TABLET (FP) PO SCH (10:47)
[2018-06-14] MEDS: risperiDONE 1 MG TABLET (FP) PO SCH (10:47)
--- NOTE | 2018-06-14 13:06 | PN ---
Psychiatric Progress Note Vital Signs: Vital Signs Period Temp Pulse Resp BP Sys/Lin Pulse Ox Last 24 Hr 98.2 F 85 16-18 90/62 Date of Session: 06/14/18 Chief Complaint:: "I don't want to hurt myself" HPI: Patient has been placed on 1:1 observation after reporting suicidal ideation secondary to homelessness and voices telling him to hurt himself. ROS: Patient coherent, alert, and oriented X3. Current Medications: Active Medications Generic Name Dose Route Start Last Admin Trade Name Freq PRN Reason Stop Dose Admin Acetaminophen 650 mg 05/28/18 16:01 06/14/18 06:08 Tylenol - PO 650 mg Q4H PRN Administration FEVER Al Hydroxide/Mg Hydroxide 30 ml 05/28/18 16:01 Mylanta Oral Suspension - PO Q6H PRN DYSPEPSIA Albuterol Sulfate 2 puff 05/28/18 16:01 06/11/18 10:50 Ventolin Hfa Inhaler - IH 2 puff Q4H PRN Administration ASTHMA Benzocaine 1 applic 06/11/18 21:15 06/12/18 09:34 Americaine Ointment - IN 1 applic Q4H PRN Administration HEMORRHOIDS Benztropine Mesylate 0.5 mg 06/13/18 10:48 06/13/18 19:32 Cogentin - PO 0.5 mg BID PRN Administration EPS Cyproheptadine HCl 4 mg 06/13/18 07:00 06/14/18 10:45 Periactin - PO 4 mg TIDAC MATTHEW Administration Eucalyptus/Menthol/Phenol/Sorbitol 1 each 05/28/18 16:01 Cepastat Lozenge - MM Q4H PRN SORE THROAT Ferrous Gluconate 324 mg 06/13/18 17:30 06/14/18 07:07 Fergon - PO 324 mg TIDCM MATTHEW Administration Guaifenesin 10 ml 05/28/18 16:01 Robitussin - PO Q6H PRN COUGH Hydrocortisone Acetate 25 mg 06/04/18 22:00 06/13/18 21:44 Anusol Hc Suppository - IN Not Given HS MATTHEW Hydroxyzine Pamoate 50 mg 05/28/18 16:01 06/13/18 10:15 Vistaril - PO 50 mg Q4H PRN Administration AGITATION Lidocaine 1 patch 06/09/18 20:30 06/14/18 10:45 Lidoderm Patch - TP 1 patch DAILY MATTHEW Administration Loperamide HCl 4 mg 05/28/18 16:01 06/13/18 10:35 Imodium - PO 4 mg Q6H PRN Administration DIARRHEA Magnesium Citrate 300 ml 05/28/18 16:01 Citroma - PO Q48H PRN CONSTIPATION Magnesium Hydroxide 30 ml 05/28/18 16:01 Milk Of Magnesia - PO DAILY PRN CONSTIPATION Meclizine HCl 12.5 mg 06/05/18 00:00 06/14/18 06:08 Antivert - PO 12.5 mg Q6HPO MATTHEW Administration Melatonin 5 mg 05/28/18 22:00 06/13/18 21:44 Melatonin PO 5 mg HS PRN Administration INSOMNIA Miscellaneous 1 each 06/09/18 22:00 06/13/18 21:44 Lidoderm Patch Removal MC 1 each DAILY@2200 MATTHEW Administration Naproxen 500 mg 06/04/18 22:00 06/14/18 10:45 Naprosyn - PO 500 mg BID MATTHEW Administration Nicotine 14 mg 05/29/18 10:00 06/14/18 10:45 Nicoderm Patch - TD 14 mg DAILY MATTHEW Administration Nicotine Polacrilex 2 mg 05/28/18 16:01 06/14/18 06:08 Nicorette Gum - BC 2 mg Q2H PRN Administration NICOTINE REPLACEMENT RX Multivit/Folic Acid/Iron 1 tab 05/29/18 10:00 06/14/18 10:47 Vitamins (Sjr) - PO 1 tab DAILY MATTHEW Administration Pseudoephedrine/Triprolidine 1 combo 05/28/18 16:01 Actifed - PO TID PRN NASAL CONGESTION Quetiapine Fumarate 100 mg 05/29/18 22:00 06/13/18 21:44 Seroquel - PO 100 mg HS MATTHEW Administration Risperidone 1 mg 06/13/18 10:15 06/14/18 10:47 Risperdal - PO 1 mg DAILY MATTHEW Administration Risperidone 0.5 mg 06/13/18 10:51 Risperdal - PO BID PRN halluincations/agitation Sertraline HCl 50 mg 05/29/18 12:45 06/14/18 10:45 Zoloft - PO 50 mg DAILY MATTHEW Administration Thiamine HCl 100 mg 05/28/18 22:00 06/13/18 21:44 Vitamin B1 - PO 100 mg HS MATTHEW Administration Medication(s) Change(s): No. Current Side Effect: No Lab tests ordered: No Lab tests reviewed: Yes (Abnormal labs: RBC-3.45 HGB: 10.0 HCT: 29.8 (Medial team aware)) Provider note:: Patient reassessed for suicidal ideation. Patient is coherent, alert and oriented X3. Mr. Álvarez reports to chief writer that the voices have lessen and are now only whispering his name. Patient denies thought or urges to hurt himself. Patient was informed earlier that he may be admitted to [facility] to receive treatment for rectal cancer and is satisifed if a transfer to [facility] were to occur. Patient asked by chief writer, what would it take for you to be suicidal again? Patient replied, "If i receive bad news again." 1:1 to be discontinued as patient no longer has thoughts to hurt himself. Mr Álvarez also denies command auditory hallucinations. Malingering suspected. Patient has been compliant with medication regiman and has been cooperative on the unit. Total face to face time:: 35 Mental Status Exam - Mental Status Exam Alert and Oriented to: Time, Place, Person Cognitive Function: Good Patient Appearance: Unkempt Mood: Sad Affect: Mood Congruent Patient Behavior: Cooperative Speech Pattern: Appropriate Voice Loudness: Normal Thought Process: Goal Oriented Thought Disorder: Not Present Hallucinations: Denies Suicidal Ideation: Denies Homicidal Ideation: Denies Insight/Judgement: Poor Sleep: Fair Appetite: Fair Muscle strength/Tone: Normal Gait/Station: Normal Psychiatric Treatment Plan - Problem List (1) Alcohol dependence Current Visit: Yes Qualifiers: Substance use status: uncomplicated Qualified Code(s): F10.20 - Alcohol dependence, uncomplicated (2) Cocaine dependence Current Visit: Yes (3) Substance induced mood disorder Current Visit: Yes (4) Substance-induced sleep disorder Current Visit: Yes (5) Schizophrenia, paranoid Current Visit: No (6) Malingering Current Visit: No Comment: Suspected malingering
[2018-06-14 14:46] LABS: ALBUMIN 2.8 g/dl (3.4-5.0); ALK PHOS 77 U/L (45-117); ANION GAP 5 MMOL/L (8-16); BILIRUBIN,TOTAL 0.2 mg/dL (0.2-1); BLOOD UREA NITROGEN 18 mg/dL (7-18); CALCIUM 8.4 mg/dL (8.5-10.1); CHLORIDE 103 mmol/L (98-107); CO2 27 mmol/L (21-32); CREATININE 0.4 mg/dL (0.55-1.3); GLUCOSE,RANDOM 119 mg/dL (74-106); POTASSIUM 4.2 mmol/L (3.5-5.1); SGOT/AST 8 U/L (15-37); SGPT/ALT 13 U/L (13-61); SODIUM 135 mmol/L (136-145); TOT PROT 6.3 g/dl (6.4-8.2)
[2018-06-14 14:54] LABS: BASO % 0.7 % (0-2.0); EOS % 10.3 % (0-4.5); HEMATOCRIT 29.8 % (35.4-49); LYMPH % 14.9 % (8-40); MCHC 33.6 g/dl (32.0-35.9); MEAN CELL VOLUME 86.3 fl (80-96); MONO % 12.2 % (3.8-10.2); NEUT % 61.9 % (42.8-82.8); PLATELET COUNT 285 K/MM3 (134-434); RBC 3.45 M/mm3 (4.00-5.60); RDW 14.6 % (11.9-15.9); WHITE BLOOD COUNT 6.2 K/mm3 (4.0-10.0)
--- NOTE | 2018-06-14 16:04 | PN ---
[facility] Progress Note Note: PT WAS SEEN THIS AFTERNOON AND REPORTS HE IS CONTINUING TO SEE BLOOD WHEN HE USES THE BATHROOM. PT C/O RECTAL BLEEDING AND PAIN 2 DAYS AGO. AND STATES HE HAS BEEN EXPERIENCING THAT FOR A FEW WEEKS NOW. PT REPORTS DECREASED APPETITE WITH SOME FATIGUE. DENIES SOB BUT REPORTS DIZZINESS. OOB AMBULATING WITH STEADY GAIT. REPEAT CBC AND CMP TODAY WERE ABNORMAL(SEE LAB RESULTS). Vital Signs (72 hours) 06/12/18 06/12/18 06/12/18 00:30 03:30 06:47 Temperature 97.9 F Pulse Rate 89 Respiratory 18 18 18 Rate Blood Pressure 109/57 L 06/13/18 06/13/18 06/13/18 00:30 03:30 06:53 Temperature 97.6 F Pulse Rate 93 H Respiratory 18 18 18 Rate Blood Pressure 98/70 06/14/18 06/14/18 06/14/18 00:30 03:30 06:27 Temperature 98.2 F Pulse Rate 85 Respiratory 18 18 16 Rate Blood Pressure 90/62 Laboratory Tests 05/29/18 05/29/18 05/29/18 06:00 06:00 06:00 WBC 8.7 RBC 4.01 Hgb 12.0 Hct 35.1 L MCV 87.6 MCH 29.9 MCHC 34.1 RDW 15.0 D Plt Count 256 MPV 8.4 Absolute Neuts (auto) Neutrophils % Lymphocytes % Monocytes % Eosinophils % Basophils % Nucleated RBC % Sodium 142 Potassium 4.2 Chloride 108 H Carbon Dioxide 28 Anion Gap 7 L BUN 14 Creatinine 0.4 L Creat Clearance w eGFR 231.59 Random Glucose 89 Calcium 8.4 L Total Bilirubin 0.2 AST 4 L ALT 9 L Alkaline Phosphatase 81 Total Protein 6.2 L Albumin 2.7 L Urine Color Urine Appearance Urine pH Ur Specific [place] Urine Protein Urine Glucose (UA) Urine Ketones Urine Blood Urine Nitrite Urine Bilirubin Urine Urobilinogen Ur Leukocyte Esterase RPR Titer Nonreactive HIV 1&2 Antibody Screen HIV P24 Antigen 05/29/18 05/29/18 06/13/18 06:00 07:30 08:00 WBC 7.4 RBC 3.67 L Hgb 10.5 L Hct 31.7 L MCV 86.4 MCH 28.7 MCHC 33.2 RDW 14.6 Plt Count 311 D MPV 8.0 Absolute Neuts (auto) 4.7 Neutrophils % 64.0 Lymphocytes % 10.5 Monocytes % 12.5 H Eosinophils % 12.1 H Basophils % 0.9 Nucleated RBC % 0 Sodium Potassium Chloride Carbon Dioxide Anion Gap BUN Creatinine Creat Clearance w eGFR Random Glucose Calcium Total Bilirubin AST ALT Alkaline Phosphatase Total Protein Albumin Urine Color Yellow Urine Appearance Clear Urine pH 7.5 Ur Specific [place] 1.020 Urine Protein Negative Urine Glucose (UA) Negative Urine Ketones Trace H Urine Blood Negative Urine Nitrite Negative Urine Bilirubin Negative Urine Urobilinogen 1.0 Ur Leukocyte Esterase Negative RPR Titer HIV 1&2 Antibody Screen Negative HIV P24 Antigen Negative 06/14/18 06/14/18 12:10 12:10 WBC 6.2 RBC 3.45 L Hgb 10.0 L Hct 29.8 L MCV 86.3 MCH 29.0 MCHC 33.6 RDW 14.6 Plt Count 285 MPV 8.0 Absolute Neuts (auto) 3.8 Neutrophils % 61.9 Lymphocytes % 14.9 D Monocytes % 12.2 H Eosinophils % 10.3 H Basophils % 0.7 Nucleated RBC % 0 Sodium 135 L Potassium 4.2 Chloride 103 Carbon Dioxide 27 Anion Gap 5 L BUN 18 Creatinine 0.4 L Creat Clearance w eGFR 231.59 Random Glucose 119 H Calcium 8.4 L Total Bilirubin 0.2 AST 8 L ALT 13 Alkaline Phosphatase 77 Total Protein 6.3 L Albumin 2.8 L Urine Color Urine Appearance Urine pH Ur Specific [place] Urine Protein Urine Glucose (UA) Urine Ketones Urine Blood Urine Nitrite Urine Bilirubin Urine Urobilinogen Ur Leukocyte Esterase RPR Titer HIV 1&2 Antibody Screen HIV P24 Antigen DECREASING HGB/HCT A:RECTAL BLEEDING/PAIN HYPOTENSION HX ANAL CANCER PLAN:TRANSFER TO [facility] VIA AMBULANCE FOR EVALUATION AND STABILIZATION. REPORT GIVEN TO DR. CLARKE AT THE ER. ADDENDUM:LOLI ALEJANDRO, DIRECTOR FOR CLINICAL SERVICES AT [facility] WAS CONTACTED RE:PATIENT'S DISCHARGE PLAN AFTER ER CARE. SHE HAS INDICATED THAT SHE WILL CONTACT CLIP LOADING MACHINE ADJUSTER AT [facility] ER TO COORDINATE PATIENT'S TRANSPORTATION FROM [facility] TO [facility] WHERE HE WILL FOLLOW UP WITH HIS ONCOLOGY CARE WELL ACCESS TO PSYCH AND OTHER NEEDED SERVICES PER DR. BUTTS' S RECOMMENDATION WHO IS A DOCTOR AT [employer] FOR THIS PATIENT AND SPOKE TO ANTON SIDDIQI NP(SEE PROVIDER NOTES OF 06/13/18) AND STATED THAT WILL BE APPROPRIATE PLAN DUE TO HIS MEDICAL CONDITIONS. MS ALEJANDRO STATED THAT CASE MANAGEMENT AT [facility] WILL CONTACT CASE MANAGEMENT AT [facility] TO SET UP PT'S ADMISSION TO [facility]. PT IS AWARE OF POC. PT'S ONCOLOGIST AT [facility] IS ELMER ANGLIN. PH:[phone] AND [phone]
[2018-06-14 17:13] LABS: PH,URINE 5.5 (5.0-8.0); URINE APPEARANCE CLEAR; URINE BILIRUBIN NEGATIVE (NEGATIVE); URINE COLOR YELLOW; URINE GLUCOSE (UA) NEGATIVE (NEGATIVE); URINE KETONE NEGATIVE (NEGATIVE); URINE LEUK ESTERASE NEGATIVE (NEGATIVE); URINE NITRITE NEGATIVE (NEGATIVE); URINE PROTEIN NEGATIVE (NEGATIVE); URINE UROBILINOGEN 0.2 mg/dL (0.2-1.0)
[2018-06-14 17:57] VITALS: BP 113/69; PULSE 103; TEMP 97.1
[2018-06-14] MEDS: QUEtiapine FUMARATE 100 MG TABLET (FP) PO SCH (22:12)
[2018-06-14] MEDS: LIDOCAINE PATCH REMOVAL MC SCH (22:12)
[2018-06-14] MEDS: HYDROCORTISONE ACETATE 25 MG/SUPP.RECT PR SCH (22:12)
[2018-06-14] MEDS: THIAMINE HCL 100 MG TABLET (FP) PO SCH (22:13)
== END 2018-06-14 18:00 | disposition short-term general hospital (02) | DRG 772 ==
LOC: YASAS 14:06 → Y3W 16:32
PROVIDERS: ADMIT Neuromusculoskeletal Medicine & OMM; ATTEND Neuromusculoskeletal Medicine & OMM
PROC: HZ42ZZZ Group Counseling for Substance Abuse Treatment, Cognitive-Behavioral (ICD-10-PCS; principal; 2018-05-28)
DX: F10.20 Alcohol dependence, uncomplicated (principal); F14.20 Cocaine dependence, uncomplicated; F19.24 Other psychoactive substance dependence with psychoactive substance-induced mood disorder; F19.282 Other psychoactive substance dependence with psychoactive substance-induced sleep disorder; F20.0 Paranoid schizophrenia; C21.0 Malignant neoplasm of anus, unspecified; R45.851 Suicidal ideations; J45.909 Unspecified asthma, uncomplicated; K62.5 Hemorrhage of anus and rectum; K62.89 Other specified diseases of anus and rectum; R42 Dizziness and giddiness; R26.89 Other abnormalities of gait and mobility; Z99.89 Dependence on other enabling machines and devices; Z88.0 Allergy status to penicillin; Q85.00 Neurofibromatosis, unspecified; Z91.81 History of falling
CPT/HCPCS: 36415; 80053; 81003; 85025; 85027; 86593; 87389; 90688; 93005; 93010; G0008; J2794

== ENCOUNTER 2018-06-14 17:40 | Inpatient (IN) | payer OTHER ==
--- NOTE | 2018-06-14 17:58 | PDOC ---
Rapid Medical Evaluation Chief Complaint: Revisit, Lab Variance Time Seen by Provider: 06/14/18 17:52 Medical Evaluation: Allergies Allergy/AdvReac Type Severity Reaction Status Date / Time Penicillins Allergy Severe Difficulty Verified 05/28/18 15:15 Breathing fish derived Allergy Intermediate Hives Verified 05/28/18 15:15 pork derived (porcine) Allergy Intermediate Hives Verified 05/28/18 15:15 fish Allergy Intermediate Hives Uncoded 05/28/18 15:15 06/14/18 17:55 I have performed a brief in-person evaluation of this patient. The patient presents with a chief complaint of: rectal pain and bleeding x 2 weeks, now w/ dizziness. Sent for [facility] for evaluation. Hgb 10 today per records, was 12 on 05/29. H/o rectal ca s/p chemo/xrt in 2018 at [facility], R chest port in place, asthma, neurofibromatosis, polysubstance abuse Pertinent physical exam findings:Stable and in NAD I have ordered the following:labs The patient will proceed to the ED for further evaluation. Discharge Disposition - Diagnosis Rectal bleeding - Referrals - Patient Instructions - Post Discharge Activity
[2018-06-14 18:30] LABS: BASO % 0.9 % (0-2.0); HEMATOCRIT 33.7 % (35.4-49); HEMOGLOBIN 11.1 GM/dL (11.7-16.9); LYMPH % 15.5 % (8-40); MCH 28.9 pg (25.7-33.7); MCHC 33.1 g/dl (32.0-35.9); MEAN CELL VOLUME 87.5 fl (80-96); MEAN PLT VOLUME 7.9 fl (7.5-11.1); MONO % 10.8 % (3.8-10.2); NEUT % 62.8 % (42.8-82.8); PLATELET COUNT 315 K/MM3 (134-434); RBC 3.85 M/mm3 (4.00-5.60); RDW 14.6 % (11.9-15.9); WHITE BLOOD COUNT 7.3 K/mm3 (4.0-10.0)
[2018-06-14 18:43] LABS: INR 1.12 (0.83-1.09); PROTHROMBIN TIME (PATIENT) 13.2 SEC (9.7-13.0)
[2018-06-14 19:18] LABS: ALBUMIN 3.3 g/dl (3.4-5.0); ALK PHOS 89 U/L (45-117); ANION GAP 6 MMOL/L (8-16); BILIRUBIN,TOTAL 0.2 mg/dL (0.2-1); BLOOD UREA NITROGEN 17 mg/dL (7-18); CALCIUM 8.4 mg/dL (8.5-10.1); CHLORIDE 104 mmol/L (98-107); CO2 28 mmol/L (21-32); CREATININE 0.5 mg/dL (0.55-1.3); GLUCOSE,RANDOM 96 mg/dL (74-106); POTASSIUM 4.6 mmol/L (3.5-5.1); SGOT/AST 13 U/L (15-37); SGPT/ALT 15 U/L (13-61); SODIUM 138 mmol/L (136-145); TOT PROT 7.2 g/dl (6.4-8.2)
[2018-06-14 19:27] LABS: URINE APPEARANCE CLEAR; URINE BILIRUBIN NEGATIVE (NEGATIVE); URINE COLOR YELLOW; URINE GLUCOSE (UA) NEGATIVE (NEGATIVE); URINE KETONE NEGATIVE (NEGATIVE); URINE LEUK ESTERASE NEGATIVE (NEGATIVE); URINE NITRITE NEGATIVE (NEGATIVE); URINE PROTEIN NEGATIVE (NEGATIVE); URINE UROBILINOGEN 0.2 mg/dL (0.2-1.0)
--- NOTE | 2018-06-14 20:32 | PDOC ---
History of Present Illness - General Chief Complaint: Revisit, Lab Variance Stated Complaint: Revisit, Lab Variance Time Seen by Provider: 06/14/18 17:52 History Source: Patient Exam Limitations: No Limitations - History of Present Illness Initial Comments: 06/14/18 20:30 Pt is a 47yo M with PMH of Rectal Ca, NF, Crack/Cocaine use BIBA from [facility] for drop in hemoglobin due to rectal bleeding. Pt states that he has been having bloody diarrhea x1-2 days. He endorses lightheadedness, SOB and pain in the rectum. He is following up with Dr. Vivek Tian at [facility] where he will be receiving chemotherapy. He denies fever, chills, urinary symptoms, chest pain, headache, back pain, leg swelling, night sweats. PMD: none PMH: see hpi PSH: none Meds: Allergies: PCN (hives) Past History - Past Medical History Allergies/Adverse Reactions: Allergies Allergy/AdvReac Type Severity Reaction Status Date / Time Penicillins Allergy Severe Difficulty Verified 05/28/18 15:15 Breathing fish derived Allergy Intermediate Hives Verified 05/28/18 15:15 pork derived (porcine) Allergy Intermediate Hives Verified 05/28/18 15:15 fish Allergy Intermediate Hives Uncoded 05/28/18 15:15 Home Medications: Ambulatory Orders Albuterol Sulfate Inhaler - [Ventolin HFA Inhaler -] 2 puff PO Q4H PRN 01/12/16 Quetiapine Fumarate [Seroquel] 100 mg PO HS #30 tablet 06/05/16 Anemia: No Asthma: Yes Cancer: No Cardiac Disorders: No CVA: No COPD: No CHF: No Dementia: No Diabetes: No GI Disorders: No Disorders: No HTN: No Hypercholesterolemia: No Kidney Stones: No Liver Disease: No Seizures: No Thyroid Disease: No Other medical history: RECTAL CANCER - Surgical History Abdominal Surgery: No Appendectomy: No Cardiac Surgery: No Cholecystectomy: No Lung Surgery: No Neurologic Surgery: No Orthopedic Surgery: No - Reproductive History Testicular Surgery: No - Immunization History Immunization Up to Date: Yes - Suicide/Smoking/Psychosocial Hx Smoking History: Unknown if ever smoked Have you smoked in the past 12 months: Yes Number of Cigarettes Smoked Daily: 20 Cigars Per Day: 0 'Breaking Loose' booklet given: 05/28/18 Hx Alcohol Use: Yes Drug/Substance Use Hx: No Substance Use Type: Alcohol, Cocaine Hx Substance Use Treatment: Yes (Detox [facility] discharged today ) Review of Systems - Review of Systems Constitutional: Yes: Weakness HEENTM: No: Symptoms Reported Respiratory: Yes: Shortness of Breath. No: Cough, Wheezing, Hemoptysis Cardiac (ROS): Yes: Lightheadedness. No: Symptoms Reported, Chest Pain, Palpitations, Syncope, Chest Tightness ABD/GI: Yes: See HPI, Diarrhea, Rectal Bleeding, Abdominal cramping. No: Constipated, Nausea, Vomiting, Tarry Stools : No: Symptoms Reported Musculoskeletal: No: Symptoms Reported Integumentary: No: Symptoms Reported Neurological: No: Symptoms reported *Physical Exam - Vital Signs Last Vital Signs Temp Pulse Resp BP Pulse Ox 98.0 F 99 H 18 103/74 100 06/14/18 17:54 06/14/18 17:54 06/14/18 17:54 06/14/18 17:54 06/14/18 17:54 - Physical Exam General Appearance: Yes: Appropriately Dressed, Thin. No: Apparent Distress HEENT: positive: EOMI, DAKSHA, Pale Conjunctivae Neck: positive: Trachea midline, Supple. negative: Lymphadenopathy (R), Lymphadenopathy (L) Respiratory/Chest: positive: Lungs Clear, Normal Breath Sounds. negative: Wheezing Cardiovascular: positive: Regular Rhythm, Regular Rate, S1, S2. negative: Edema , JVD, Murmur Vascular Pulses: Carotid (R): 2+, Carotid (L): 2+, Dorsalis-Pedis (R): 2+, Doralis-Pedis (L): 2+ Gastrointestinal/Abdominal: positive: Normal Bowel Sounds, Soft. negative: Tender, Tenderness, Mass Rectal Exam: positive: normal rectal tone, heme positive stool, other (mass palpated inside rectum, gross blood ) Musculoskeletal: negative: CVA Tenderness Extremity: positive: Normal Capillary Refill. negative: Swelling, Calf Tenderness Integumentary: positive: Normal Color, Dry, Warm, Other (neurofibromas) Neurologic: positive: grounding engineer II-XII NML intact, Fully Oriented, Alert, Normal Mood/ Affect, Normal Response, Motor Strength 5/5 ED Treatment Course - LABORATORY CBC & Chemistry Diagram: 06/15/18 00:00 04/26/19 18:07 - ADDITIONAL ORDERS Additional order review: Laboratory Results 06/14/18 06/14/18 06/14/18 18:07 18:07 18:07 PT with INR 13.20 H INR 1.12 H Sodium 138 Potassium 4.6 Chloride 104 Carbon Dioxide 28 Anion Gap 6 L BUN 17 Creatinine 0.5 L Creat Clearance w eGFR 179.01 Random Glucose 96 Calcium 8.4 L Total Bilirubin 0.2 AST 13 L ALT 15 Alkaline Phosphatase 89 Total Protein 7.2 Albumin 3.3 L Blood Type A POSITIVE Antibody Screen Negative 06/14/18 18:07 RBC 3.85 L MCV 87.5 MCHC 33.1 RDW 14.6 MPV 7.9 Neutrophils % 62.8 Lymphocytes % 15.5 Monocytes % 10.8 H Eosinophils % 10.0 H Basophils % 0.9 Medical Decision Making - Medical Decision Making 06/14/18 20:46 Pt is a 47yo M with PMH of Rectal Ca, NF, Crack/Cocaine use BIBA from [facility] for drop in hemoglobin due to rectal bleeding. Pt states that he has been having bloody diarrhea x1-2 days. He endorses lightheadedness, SOB and pain in the rectum. He is following up with Dr. Vivek Tian at [facility] where he will be receiving chemotherapy. He denies fever, chills, urinary symptoms, chest pain, headache, back pain, leg swelling, night sweats. Vitals: wnl PE: active rectal bleeding, neurofibromas, pale conjunctiva Ddx includes but not limited to gi bleed (upper v. lower), malignancy, fistula, hemorrhoid given history and exam, most likely lower bleed. -labs and ts ordered by tabitha hgb at [facility] 10.5 today. here it is 11.1. 16 days ago hgb was 12. exam revealed active rectal bleeding with pain in the rectum. all other labs wnl. pt follows up with oncologist at [facility] who suggested that pt does not need transfer at this time. with active rectal bleed and decreasing hgb, will admit pt. pt accepted by hospitalist med/surg. ekg: nsr with peaked T, signs of LVH *DC/Admit/Observation/Transfer Diagnosis at time of Disposition: Rectal bleeding - Discharge Dispostion Decision to Admit order: Yes - Referrals - Patient Instructions - Post Discharge Activity
--- NOTE | 2018-06-14 20:55 | PN ---
Teaching Attending Note Name of Resident: Raegan Harrell ATTENDING PHYSICIAN STATEMENT I saw and evaluated the patient. I reviewed the resident's note and discussed the case with the resident. I agree with the resident's findings and plan as documented. SUBJECTIVE: Patient is a 47 year old ?homeless man with PMH of Rectal Cancer (s/p chemo and radiotherapy), Penicillin allergy, neurofibromatosis, tobacco use, Crack/ Cocaine use presenting from [facility] for drop in hemoglobin due to rectal bleeding. Patient states that he has been having bloody diarrhea for 1-2 days. He has had lightheadedness, SOB and pain in the rectum. He is following up with Dr. Vivek Tian at [facility] where he will be receiving chemotherapy. Has been ingesting Naprosyn 500 mg qid for about two weeks for pain and has had poor appetite. He denies fever, chills, urinary symptoms, chest pain, headache, back pain, leg swelling, vomiting or night sweats. OBJECTIVE: Alert Vital Signs Period Temp Pulse Resp BP Sys/Lin Pulse Ox Last 24 Hr 98.0 F 99 18 103/74 100 HEENT: No Jaundice, eye redness or discharge, PERRLA, EOMI. Conjunctival pallor. Normocephalic, atraumatic. External ears are normal and hearing is grossly intact. No nasal discharge. Neck: Supple, nontender. No palpable adenopathy or thyromegaly. No JVD Chest: Good effort. Right chest port. Clear to auscultation and percussion. Heart: Regular. No S3, rub or murmur Abdomen: Not distended, soft, tender lower abdomen and no HSM. No rebound or guarding. Normal bowel sounds. Ext: Peripheral pulses intact. No leg edema. Attempted rectal exam elicited a lot of rectal pain and was aborted. Skin: Warm and dry. Numerous neurofibromatosis lesions. No petechiae, rash or ecchymosis. Neuro: Alert. Oriented x3. CN 2-12 grossly intact. Sensation grossly intact in all four extremities and DTR are symmetric. Psych: Appropriate mood and affect. Good insight. Home Medications Medication Instructions Recorded Albuterol Sulfate Inhaler - 2 puff PO Q4H PRN 01/12/16 [Ventolin HFA Inhaler -] Quetiapine Fumarate [Seroquel] 100 mg PO HS #30 tablet 06/05/16 Abnormal Lab Results 06/14/18 06/14/18 06/14/18 18:07 18:07 18:07 RBC 3.85 L Hgb 11.1 L Hct 33.7 L Monocytes % 10.8 H Eosinophils % 10.0 H PT with INR 13.20 H INR 1.12 H Anion Gap 6 L Creatinine 0.5 L Calcium 8.4 L AST 13 L Albumin 3.3 L ASSESSMENT AND PLAN: 1. Rectal bleeding - Has guaiac positive stool. While his rectal cancer is the logical source of the bleeding, NSAID associated ulceration may be partly to blame. Will monitor HCT q 6 hours, get iron studies, CT abdomen/pelvis and consult GI. Treat with IV NS, type and hold PRBC and give protonix 40 mg IV q 12 hours. Use morphine 2 mg q 6 hours PRN for severe rectal pain and add a bowel regimen PRN. Counseled to avoid NSAIDS. Consult social worker psychiatric for assistance with living situation. 2. Hypoalbuminemia - Possibly due to combined effects of malnutrition and inflammation associated with comorbid chronic conditions. Will ensure adequate dietary protein intake and also consult scrap metal processing worker. 3. Tobacco Use Counseled on risks associated with tobacco use. We will provide patient all the necessary assistance to facilitate smoking cessation and prescribe Nicotine patch. 4. DVT prophylaxis - SCD, TEDs, Early ambulation 5. Advance directives - Full code
[2018-06-14] MEDS ORDERED: SODIUM CHLORIDE 500 ML IV STA (22:28)
--- NOTE | 2018-06-14 22:40 | HP ---
CHIEF COMPLAINT: Rectal bleeding x 2 weeks PCP: None ONCOLOGIST: Dr. Tian at [facility], , HISTORY OF PRESENT ILLNESS: 47 y/o M with PMHx of Rectal Ca s/p Chemotherapy and Radiation (6 weeks of radiation and 2 sessions of chemotherapy, last in 11/05), Asthma, neurofibromatosis, Polysubstance Abuse (smokes Crack x 10 years) presents with BRBPR from [facility]. 2 weeks about patient initially had blood on tissue paper when he wiped his rectum. Since then it has progressed to gross BRBPR for the past few days accompanied by lower quadrant abdominal pain b/l. Pain described as 8/10, worst at the umbillicus without radiation. Patient mentions recently using Ibuprofen and naproxen 500mg Q6H for >1 week due to pain. Patient endorses NBNB Vomiting x1, Bloody diarrhea, SOB, poor appetite and decreased PO intake. He feels these sx's are similar to when he was initially diagnosed with cancer. Denies any associated fevers, chills, chest pain, nausea, constipation. Recent Travel: Denies PAST MEDICAL HISTORY: As per HPI PAST SURGICAL HISTORY: Denies Social History: Smokin-3 cigs daily since age 16 Alcohol: Occasional Beer Drugs: Crack cocaine Occuaption: on SSI Ambulation: with cane Residence: Homeless Family History: Mother: of skin ca Father: Alcoholic cirrhosis Allergies Penicillins Allergy (Severe, Verified 05/28/18 15:15) Difficulty Breathing fish derived Allergy (Intermediate, Verified 05/28/18 15:15) Hives pork derived (porcine) Allergy (Intermediate, Verified 05/28/18 15:15) Hives fish Allergy (Intermediate, Uncoded 05/28/18 15:15) Hives HOME MEDICATIONS: Home Medications Medication Instructions Recorded Albuterol Sulfate Inhaler - 2 puff PO Q4H PRN 01/12/16 [Ventolin HFA Inhaler -] Quetiapine Fumarate [Seroquel] 100 mg PO HS #30 tablet 06/05/16 REVIEW OF SYSTEMS As per HPI PHYSICAL EXAMINATION Vital Signs - 24 hr 06/14/18 17:54 Temperature 98.0 F Pulse Rate 99 H Respiratory 18 Rate Blood Pressure 103/74 O2 Sat by Pulse 100 Oximetry (%) Orthostatic Vitals: Supine 122/84 HR 88, Sitting 111/74 HR 93, Standing 109/77 HR 101 GENERAL: A&Ox3, NAD HEAD: NCAT EYES: EOMI EARS, NOSE, THROAT: Moist mucous membranes. NECK: Supple LUNGS: Diminished breath sounds at the bases, No wheezes, no crackles HEART: Regular rate and rhythm, normal S1 and S2 without murmur ABDOMEN: Soft, nontender, not distended, + bowel sounds, no guarding EXTREMITIES: No peripheral edema. NEUROLOGICAL: Cranial nerves II-XII intact. Normal speech. Slow but steady gait when ambulating with cane. SKIN: Warm, dry, Diffuse cutaneous neurofibromatosis lesions, Right sided Chest port RECTAL: BRBPR over anal sphincter, patient unable to tolerate Laboratory Results - last 24 hr 06/14/18 06/14/18 06/14/18 18:07 18:07 18:07 WBC 7.3 RBC 3.85 L Hgb 11.1 L Hct 33.7 L MCV 87.5 MCH 28.9 MCHC 33.1 RDW 14.6 Plt Count 315 MPV 7.9 Absolute Neuts (auto) 4.6 Neutrophils % 62.8 Lymphocytes % 15.5 Monocytes % 10.8 H Eosinophils % 10.0 H Basophils % 0.9 Nucleated RBC % 0 PT with INR 13.20 H INR 1.12 H Sodium Potassium Chloride Carbon Dioxide Anion Gap BUN Creatinine Creat Clearance w eGFR Random Glucose Calcium Total Bilirubin AST ALT Alkaline Phosphatase Total Protein Albumin Urine Color Urine Appearance Urine pH Ur Specific [place] Urine Protein Urine Glucose (UA) Urine Ketones Urine Blood Urine Nitrite Urine Bilirubin Urine Urobilinogen Ur Leukocyte Esterase Stool Occult Blood Blood Type A POSITIVE Antibody Screen Negative 06/14/18 06/14/18 06/14/18 18:07 19:06 20:21 WBC RBC Hgb Hct MCV MCH MCHC RDW Plt Count MPV Absolute Neuts (auto) Neutrophils % Lymphocytes % Monocytes % Eosinophils % Basophils % Nucleated RBC % PT with INR INR Sodium 138 Potassium 4.6 Chloride 104 Carbon Dioxide 28 Anion Gap 6 L BUN 17 Creatinine 0.5 L Creat Clearance w eGFR 179.01 Random Glucose 96 Calcium 8.4 L Total Bilirubin 0.2 AST 13 L ALT 15 Alkaline Phosphatase 89 Total Protein 7.2 Albumin 3.3 L Urine Color Yellow Urine Appearance Clear Urine pH 5.0 Ur Specific Florence 1.021 Urine Protein Negative Urine Glucose (UA) Negative Urine Ketones Negative Urine Blood Negative Urine Nitrite Negative Urine Bilirubin Negative Urine Urobilinogen 0.2 Ur Leukocyte Esterase Negative Stool Occult Blood Positive Blood Type Antibody Screen ASSESSMENT/PLAN: 47 y/o M with PMHx of Rectal Ca (s/p Chemotherapy and Radiation), Asthma, neurofibromatosis, Polysubstance Abuse (Crack) presents with BRBPR #Symptomatic Anemia -BRBPR possibly due to ulceration from Recent NSAID use VS Rectal CA -FOBT Positive -2 Large Bore IV's ideally 18 guage or larger -Stat Type and screen -Transfuse id Hgb < 7.0 -1/2L NS Bolus; Followed by NS @ 125 mls/hr -Serial CBC's -IV Pantoprazole 40mg BID -Check Iron Stores -CT A/P -Keep NPO -GI (Dr. Palacios) consulted -Morphine 2mg Q6H PRN for severe pain -Bowel Regimen #Asthma -Ventolin #FEN -NS @ 125 mls/hr -Lytes WNL -NPO #PPx -DVT: SCDs Visit type - Emergency Visit Emergency Visit: Yes ED Registration Date: 06/14/18 Care time: The patient presented to the Emergency Department on the above date and was hospitalized for further evaluation of their emergent condition. - New Patient This patient is new to me today: Yes Date on this admission: 06/15/18 - Critical Care Critical Care patient: No
--- NOTE | 2018-06-15 00:11 | PDOC ---
Documentation entered by Jayden Villanueva SCRIBE, acting as scribe for Claire Driver MD. Claire Driver MD: This documentation has been prepared by the iris, Jayden Villanueva SCRIBE, under my direction and personally reviewed by me in its entirety. I confirm that the documentation accurately reflects all work, treatment, procedures, and medical decision making performed by me. Attending Attestation - Resident Resident Name: Payton Lau - ED Attending Attestation I have performed the following: I have examined & evaluated the patient, The case was reviewed & discussed with the resident, I agree w/resident's findings & plan - HPI HPI: 06/14/18 21:27 The patient is a 47 year old male with a significant past medical history of rectal ca who presents to the emergency department from [facility] with abnormal HGB level of 10.6 since earlier today. The patient was noted to have a HGB level of 12 on 05/29/18 todal his level decreased and the patient has been having rectal bleeding with diarrhea. He states that he had to wear a diaper today secondary to flow. The patient states that he has been experiencing some associated lightheadedness today with his symptoms. It is noted that the patient follows oncology at [facility]. He denies any other complaints at time of exam. - Physicial Exam PE: 06/15/18 00:37 Agree with resident exam. - Medical Decision Making 06/15/18 00:40 Pt has active red blood ooze from rectum. We spoke to his oncologists, and they agree that pt is stable to be admitted to this hospital and doesn't require oncology services at this time. He will be admitted and evaluated here; he can follow with his oncologists as an outpatient. 06/15/18 00:40 Pt's Hb/HCT has been stable all day. 3 weeks ago, pt's hemoglobin was 13, as per his oncologist.
[2018-06-15] MEDS ORDERED: PANTOPRAZOLE SODIUM 40 MG VIAL ONE (00:36)
[2018-06-15] MEDS: PANTOPRAZOLE SODIUM 40 MG VIAL IVPUSH SCH ×3 (00:50→21:50)
[2018-06-15 00:51] LABS: BASO % 0.8 % (0-2.0); EOS % 10.9 % (0-4.5); HEMATOCRIT 32.7 % (35.4-49); HEMOGLOBIN 10.9 GM/dL (11.7-16.9); LYMPH % 12.4 % (8-40); MCH 28.8 pg (25.7-33.7); MCHC 33.4 g/dl (32.0-35.9); MEAN CELL VOLUME 86.4 fl (80-96); MEAN PLT VOLUME 7.9 fl (7.5-11.1); NEUT % 63.9 % (42.8-82.8); PLATELET COUNT 310 K/MM3 (134-434); RBC 3.79 M/mm3 (4.00-5.60); WHITE BLOOD COUNT 7.8 K/mm3 (4.0-10.0)
[2018-06-15] MEDS ORDERED: ALBUTEROL SO4 0.083% IH SOL 2.5 MG/3 ML VIAL.NEB. NEB PRN (00:59)
[2018-06-15] MEDS ORDERED: MORPHINE SULFATE 2 MG/ML VIAL IVPUSH ONE (04:37)
[2018-06-15] MEDS ORDERED: DOCUSATE SODIUM 100 MG CAPSULE (FP) PO SCH (06:00)
--- NOTE | 2018-06-15 07:50 | PN ---
Progress Note, Physician Chief Complaint: C/O rectal pain and Diarrhea History of Present Illness: 47 y/o M with PMHx of Rectal Ca s/p Chemotherapy and Radiation (6 weeks of radiation and 2 sessions of chemotherapy, last in 11/05), Asthma, neurofibromatosis, Polysubstance Abuse (smokes Crack x 10 years) presents with BRBPR from [facility]. 2 weeks about patient initially had blood on tissue paper when he wiped his rectum. Since then it has progressed to gross BRBPR for the past few days accompanied by lower quadrant abdominal pain b/l. Pain described as 8/10, worst at the umbillicus without radiation. - Current Medication List Current Medications: Active Medications Active Medications Albuterol Sulfate (Ventolin 0.083% Nebulizer Soln -) 1 amp NEB Q6H PRN PRN Reason: SHORT OF BREATH/WHEEZING Sodium Chloride (Normal Saline -) 1,000 mls @ 125 mls/hr IV ASDIR [facility] Last Admin: 06/15/18 09:45 Dose: 125 mls/hr Morphine Sulfate (Morphine Sulfate) 2 mg IVPUSH Q6H PRN PRN Reason: PAIN LEVEL 6-10 Last Admin: 06/15/18 09:29 Dose: 2 mg Nicotine Polacrilex (Nicorette Gum -) 2 mg BUC Q2H PRN PRN Reason: NICOTINE REPLACEMENT RX Ondansetron HCl (Zofran Injection) 4 mg IVPUSH Q6H PRN PRN Reason: NAUSEA Last Admin: 06/15/18 09:41 Dose: 4 mg Pantoprazole Sodium (Protonix Iv) 40 mg IVPUSH BID [facility] Last Admin: 06/15/18 09:32 Dose: 40 mg Quetiapine Fumarate (Seroquel -) 100 mg PO [facility] - Objective Vital Signs: Vital Signs Temperature 98.0 F 06/15/18 02:31 Pulse Rate 90 06/15/18 02:31 Respiratory Rate 18 06/15/18 02:31 Blood Pressure 120/82 06/15/18 02:31 O2 Sat by Pulse Oximetry (%) 97 06/15/18 02:31 GENERAL: Elderly man c/o pain HEENT: mm moist, no mild anemia EYES: EOMI NECK: Supple LUNGS: CTA B/L , No wheezes, no crackles HEART: Regular rate and rhythm, normal S1 and S2 without murmur ABDOMEN: Soft, Epigastric not distended, + bowel sounds, no guarding EXTREMITIES: No peripheral edema. NEUROLOGICAL: Cranial nerves II-XII intact. Normal speech. Slow but steady gait when ambulating with cane. RECTAL: BRBPR over anal sphincter, patient unable to tolerate (as per admitting team) Labs: CBC, BMP 06/15/18 00:00 06/14/18 18:07 INR, PTT INR 1.12 (0.83-1.09) H 06/14/18 18:07 Problem List - Problems (1) Rectal bleeding Assessment/Plan: H/O Carcinoma treated in 2017 poor historian unable to provide much details CT abd pelvis shows rectal wall thickness and ? Mets Liver , will F/U GI recommendation , serial H/h are stable will consult oncology. Code(s): K62.5 - HEMORRHAGE OF ANUS AND RECTUM (2) Diarrhea Assessment/Plan: CBC is normal will f/U stool w/u and GI recommendations. Code(s): R19.7 - DIARRHEA, UNSPECIFIED (3) Alcohol dependence Assessment/Plan: Completed Detox at [facility] no active issue Code(s): F10.20 - ALCOHOL DEPENDENCE, UNCOMPLICATED Qualifiers: Substance use status: uncomplicated Qualified Code(s): F10.20 - Alcohol dependence, uncomplicated (4) Depression Assessment/Plan: Cont Seroquel Code(s): F32.9 - MAJOR DEPRESSIVE DISORDER, SINGLE EPISODE, UNSPECIFIED
[2018-06-15 08:20] LABS: BASO % 0.7 % (0-2.0); HEMATOCRIT 29.1 % (35.4-49); HEMOGLOBIN 9.8 GM/dL (11.7-16.9); LYMPH % 9.1 % (8-40); MCHC 33.7 g/dl (32.0-35.9); MEAN PLT VOLUME 8.1 fl (7.5-11.1); MONO % 9.6 % (3.8-10.2); NEUT % 74.6 % (42.8-82.8); PLATELET COUNT 292 K/MM3 (134-434); RBC 3.38 M/mm3 (4.00-5.60); RDW 14.6 % (11.9-15.9)
[2018-06-15 08:43] LABS: ALBUMIN 2.7 g/dl (3.4-5.0); ALK PHOS 83 U/L (45-117); ANION GAP 6 MMOL/L (8-16); BILIRUBIN,TOTAL 0.3 mg/dL (0.2-1); BLOOD UREA NITROGEN 14 mg/dL (7-18); CALCIUM 8.3 mg/dL (8.5-10.1); CHLORIDE 107 mmol/L (98-107); CO2 25 mmol/L (21-32); CREATININE 0.3 mg/dL (0.55-1.3); GLUCOSE,RANDOM 86 mg/dL (74-106); MAGNESIUM 2.2 mg/dL (1.8-2.4); PHOSPHOROUS 2.8 mg/dL (2.5-4.9); SGOT/AST 9 U/L (15-37); SGPT/ALT 12 U/L (13-61); SODIUM 138 mmol/L (136-145); TOT PROT 6.3 g/dl (6.4-8.2)
[2018-06-15] MEDS ORDERED: morphine SULFATE 4 MG/ML VIAL IVPUSH PRN (09:11)
[2018-06-15] MEDS ORDERED: ONDANSETRON 4 MG/2 ML VIAL IVPUSH PRN (09:11)
[2018-06-15] MEDS: SODIUM CHLORIDE 1,000 ML IV SCH ×3 (09:45→20:30)
[2018-06-15] MEDS ORDERED: SENNOSIDES 8.6MG TABLET (FP) PO SCH (10:00)
[2018-06-15 11:57] LABS: BASO % 0.4 % (0-2.0); EOS % 1.6 % (0-4.5); HEMATOCRIT 29.3 % (35.4-49); HEMOGLOBIN 9.9 GM/dL (11.7-16.9); MCH 29.3 pg (25.7-33.7); MCHC 33.9 g/dl (32.0-35.9); MEAN CELL VOLUME 86.3 fl (80-96); MEAN PLT VOLUME 7.7 fl (7.5-11.1); MONO % 8.2 % (3.8-10.2); NEUT % 82.8 % (42.8-82.8); PLATELET COUNT 277 K/MM3 (134-434); RBC 3.39 M/mm3 (4.00-5.60); RDW 14.4 % (11.9-15.9); WHITE BLOOD COUNT 7.6 K/mm3 (4.0-10.0)
--- NOTE | 2018-06-15 15:09 | EKG ---
Test Reason : Blood Pressure : / mmHG Vent. Rate : 090 BPM Atrial Rate : 090 BPM P-R Int : 164 ms QRS Dur : 090 ms QT Int : 338 ms P-R-T Axes : 060 005 034 degrees QTc Int : 413 ms NORMAL SINUS RHYTHM MODERATE VOLTAGE CRITERIA FOR LVH, MAY BE NORMAL VARIANT BORDERLINE ECG WHEN COMPARED WITH ECG OF 28-MAY-2018 15:55, NO SIGNIFICANT CHANGE WAS FOUND Confirmed by MISAEL STRAUSS MD ([id number]) on 06/15/2018 3:09:09 PM Referred By: Confirmed By:MISAEL STRAUSS MD
[2018-06-15] MEDS: MORPHINE SULFATE 2 MG/ML VIAL IVPUSH PRN ×2 (15:48→21:50)
--- NOTE | 2018-06-15 16:22 | PN ---
Progress Note (short form) - Note Progress Note: GI consult dictated full liquid diet trend h/h daily ppi 40 mg iv qd oncology evaluation regarding further work up/ treatment considering it appears he may have liver mets / stage IV CA colo- rectal surgery evaluation .
--- NOTE | 2018-06-15 16:45 | CONS ---
DATE OF CONSULTATION: DATE OF DICTATION: 06/15/2018 The patient is a 47-year-old man with a past medical history of rectal cancer diagnosed in 2017, status post chemotherapy and radiation at that time. Also with a history of asthma, neurofibromatosis, polysubstance abuse, still smokes crack and cocaine for over 10 years and currently is in the rehab, who presents with a 2-week history of intermittent episodes of hematochezia. He states that there is blood on the tissue when he has a bowel movement. Since then, it has progressively worsened, with associated lower quadrant abdominal pain. He did use NSAIDs over the past week. He endorses also nausea and vomiting without any hematemesis, and he denies melena, syncope, dizziness, shortness of breath, or chest pain. PAST MEDICAL/SURGICAL HISTORY: As listed in the HPI. ALLERGIES: PENICILLIN. SOCIAL HISTORY: Smokes cigarettes, drinks an occasional beer. Crack and cocaine substance abuse, and he is homeless. FAMILY HISTORY: There is no history of any GI or malignancy. REVIEW OF SYSTEMS: As per the HPI. PHYSICAL EXAMINATION: Vital Signs: Temperature 98, pulse 80, respiratory rate 12, blood pressure 123/75, pulse oximetry 97% on room air. General: No acute distress. HEENT: Anicteric sclerae. Cardiovascular: S1, S2. Regular rate and rhythm. Lungs: Bilaterally clear to auscultation. Abdomen: Soft and nontender. Extremities: No edema. Skin: Significant for neurofibromas. LABORATORY: White blood cell count 7.6. Hemoglobin 9.9 and hematocrit 29. On the , hemoglobin was 11. MCV 86, platelet count 277. INR 1.12. Sodium 138, potassium 4, BUN 14, creatinine 0.3, calcium 8.3, glucose 86. AST 9, ALT 12, alkaline phosphatase 83. Total bilirubin 0.3. Urine is negative. Stool for occult blood is positive. Abdomen and pelvis CT scan was performed with and without contrast and revealed at least 4 lesions in the liver suspicious for hepatic metastasis, mural thickening of the rectum. IMPRESSION: Hematochezia with an underlying history of rectal cancer status post chemotherapy and radiation in 2017, apparently has not followed up with his doctor at [facility]. I believe these findings are most likely secondary to recurrent malignancy and also with questionable metastasis now to the liver. RECOMMENDATIONS: Trend hemoglobin and hematocrit daily while hospitalized. Would recommend hematology oncology consultation for further management. The plan of care for this patient will need to be discussed with hematology oncology regarding the necessity of repeat endoscopic examination and further imaging of his liver. Would advance his diet to a full liquid diet. Continue him on Protonix 40 mg p.o. daily. The patient will be followed by the GI service. DO MECHE HENRY/[id number]
[2018-06-15 16:58] LABS: BASO % 0.7 % (0-2.0); EOS % 3.8 % (0-4.5); HEMATOCRIT 30.2 % (35.4-49); HEMOGLOBIN 10.3 GM/dL (11.7-16.9); LYMPH % 12.2 % (8-40); MCH 29.6 pg (25.7-33.7); MEAN CELL VOLUME 87.3 fl (80-96); MEAN PLT VOLUME 7.7 fl (7.5-11.1); NEUT % 72.3 % (42.8-82.8); PLATELET COUNT 299 K/MM3 (134-434); RBC 3.46 M/mm3 (4.00-5.60); RDW 14.6 % (11.9-15.9); WHITE BLOOD COUNT 6.9 K/mm3 (4.0-10.0)
[2018-06-15] MEDS: NICOTINE POLACRILEX 2 MG GUM BUC PRN ×2 (17:22→21:50)
[2018-06-15 19:23] LABS: BASO % 0.6 % (0-2.0); EOS % 6.3 % (0-4.5); HEMATOCRIT 29.6 % (35.4-49); HEMOGLOBIN 9.9 GM/dL (11.7-16.9); LYMPH % 14.2 % (8-40); MCH 29.1 pg (25.7-33.7); MCHC 33.5 g/dl (32.0-35.9); MEAN CELL VOLUME 86.7 fl (80-96); MEAN PLT VOLUME 7.7 fl (7.5-11.1); MONO % 12.6 % (3.8-10.2); NEUT % 66.3 % (42.8-82.8); PLATELET COUNT 293 K/MM3 (134-434); RBC 3.42 M/mm3 (4.00-5.60); RDW 14.9 % (11.9-15.9)
[2018-06-15] MEDS ORDERED: PT OWN MED DRAWER 7, Y5N ONE (20:00)
[2018-06-15] MEDS: QUEtiapine FUMARATE 100 MG TABLET (FP) PO SCH (21:54)
[2018-06-16] MEDS: MORPHINE SULFATE 2 MG/ML VIAL IVPUSH PRN ×4 (03:20→23:15)
--- NOTE | 2018-06-16 07:14 | PN.GI ---
GI Progress Note Subjective: no new complaints , less bowel movements as well as less blood in the stool ; feeling better - Objective Vital Signs: Vital Signs Temperature 98.6 F 06/16/18 06:53 Pulse Rate 84 06/16/18 06:53 Respiratory Rate 20 06/16/18 06:53 Blood Pressure 105/62 06/16/18 06:53 O2 Sat by Pulse Oximetry (%) 97 06/15/18 02:31 Constitutional: Well Nourished, No Distress Eyes: Yes: WNL HENT: Yes: WNL Neck: Yes: WNL Cardiovascular: Yes: WNL Respiratory: Yes: WNL, Regular, CTA Bilaterally Gastrointestinal Inspection: Yes: WNL ...Auscultate: Yes: Normoactive Bowel Sounds Extremities: Yes: WNL Edema: No Neurological: Yes: WNL Labs: CBC, BMP 06/15/18 18:54 06/15/18 06:30 INR, PTT INR 1.12 (0.83-1.09) H 06/14/18 18:07 Problem List - Problems (1) Rectal cancer metastasized to liver Assessment/Plan: stool cultures reviewed and negative heme / onc evaluation noted - I agree he should f/u with his the medical/ onc team at [facility] for further management . Code(s): C20 - MALIGNANT NEOPLASM OF RECTUM; C78.7 - SECONDARY MALIG NEOPLASM OF LIVER AND INTRAHEPATIC BILE DUCT (2) Diarrhea Code(s): R19.7 - DIARRHEA, UNSPECIFIED (3) Rectal bleeding Code(s): K62.5 - HEMORRHAGE OF ANUS AND RECTUM (4) Alcohol dependence Code(s): F10.20 - ALCOHOL DEPENDENCE, UNCOMPLICATED Qualifiers: Substance use status: uncomplicated Qualified Code(s): F10.20 - Alcohol dependence, uncomplicated (5) Cocaine dependence Code(s): F14.20 - COCAINE DEPENDENCE, UNCOMPLICATED
[2018-06-16] MEDS ORDERED: INSULIN (LEVEMIR) 100 UNITS/ML UNITS SQ ONE (07:57)
--- NOTE | 2018-06-16 08:34 | PN ---
Teaching Attending Note Name of Resident: Azael Pryor ATTENDING PHYSICIAN STATEMENT I saw and evaluated the patient. I reviewed the resident's note and discussed the case with the resident. I agree with the resident's findings and plan as documented. SUBJECTIVE: less diarrhea OBJECTIVE: Vital Signs Temperature 98.6 F 06/16/18 06:53 Pulse Rate 84 06/16/18 06:53 Respiratory Rate 20 06/16/18 06:53 Blood Pressure 105/62 06/16/18 06:53 O2 Sat by Pulse Oximetry (%) 97 06/15/18 02:31 GENERAL: Elderly man c/o pain HEENT: mm moist, no mild anemia EYES: EOMI NECK: Supple LUNGS: CTA B/L , No wheezes, no crackles HEART: Regular rate and rhythm, normal S1 and S2 without murmur ABDOMEN: Soft, Epigastric not distended, + bowel sounds, no guarding EXTREMITIES: No peripheral edema. NEUROLOGICAL: Cranial nerves II-XII intact. Normal speech. Slow but steady gait when ambulating with cane. RECTAL: BRBPR over anal sphincter, patient unable to tolerate (as per admitting team) Active Medications Albuterol Sulfate (Ventolin 0.083% Nebulizer Soln -) 1 amp NEB Q6H PRN PRN Reason: SHORT OF BREATH/WHEEZING Sodium Chloride (Normal Saline -) 1,000 mls @ 125 mls/hr IV ASDIR MATTHEW Last Admin: 06/15/18 20:30 Dose: 125 mls/hr Morphine Sulfate (Morphine Sulfate) 2 mg IVPUSH Q6H PRN PRN Reason: PAIN LEVEL 6-10 Last Admin: 06/16/18 03:20 Dose: 2 mg Nicotine Polacrilex (Nicorette Gum -) 2 mg BUC Q2H PRN PRN Reason: NICOTINE REPLACEMENT RX Last Admin: 06/15/18 21:50 Dose: 2 mg Ondansetron HCl (Zofran Injection) 4 mg IVPUSH Q6H PRN PRN Reason: NAUSEA Last Admin: 06/15/18 09:41 Dose: 4 mg Pantoprazole Sodium (Protonix Iv) 40 mg IVPUSH BID MATTHEW Last Admin: 06/15/18 21:50 Dose: 40 mg Quetiapine Fumarate (Seroquel -) 100 mg PO HS [facility] Last Admin: 06/15/18 21:54 Dose: 100 mg CBC, BMP 06/16/18 07:45 06/16/18 07:45 ASSESSMENT AND PLAN:47 y/o M with PMHx of Rectal Ca s/p Chemotherapy and Radiation (6 weeks of radiation and 2 sessions of chemotherapy, last in 11/05), Asthma, neurofibromatosis, Polysubstance Abuse , active Crack cocaine, transferred from [place] with diarrhea and bleeding [place] H/H is stable. CT abd shows opacities in liver and rectal wal thickness, stool w/u is in progress.evaluted by GI and oncology CBC, BMP are stable, no bleeding FL noted by the nursing staff; Plan; Can be Dc Home in am to F/U with his primary oncologist. discussed with the team. Problem List - Problems (1) Rectal bleeding Code(s): K62.5 - HEMORRHAGE OF ANUS AND RECTUM (2) Diarrhea Code(s): R19.7 - DIARRHEA, UNSPECIFIED (3) Alcohol dependence Code(s): F10.20 - ALCOHOL DEPENDENCE, UNCOMPLICATED Qualifiers: Substance use status: uncomplicated Qualified Code(s): F10.20 - Alcohol dependence, uncomplicated (4) Depression Code(s): F32.9 - MAJOR DEPRESSIVE DISORDER, SINGLE EPISODE, UNSPECIFIED
[2018-06-16] MEDS ORDERED: PT OWN MED DRAWER 7, Y5N ONE ×3 (08:52→17:04)
[2018-06-16] MEDS: NICOTINE POLACRILEX 2 MG GUM BUC PRN ×5 (08:59→23:20)
[2018-06-16 09:07] LABS: BASO % 0.7 % (0-2.0); EOS % 11.2 % (0-4.5); HEMATOCRIT 28.4 % (35.4-49); HEMOGLOBIN 9.5 GM/dL (11.7-16.9); LYMPH % 11.7 % (8-40); MCH 29.2 pg (25.7-33.7); MCHC 33.6 g/dl (32.0-35.9); MEAN CELL VOLUME 86.9 fl (80-96); MEAN PLT VOLUME 7.6 fl (7.5-11.1); MONO % 10.4 % (3.8-10.2); PLATELET COUNT 287 K/MM3 (134-434); RBC 3.27 M/mm3 (4.00-5.60); RDW 14.7 % (11.9-15.9)
[2018-06-16 09:36] LABS: ANION GAP 6 MMOL/L (8-16); BLOOD UREA NITROGEN 7 mg/dL (7-18); CALCIUM 8.5 mg/dL (8.5-10.1); CHLORIDE 108 mmol/L (98-107); CO2 27 mmol/L (21-32); CREATININE 0.3 mg/dL (0.55-1.3); GLUCOSE,RANDOM 84 mg/dL (74-106); SODIUM 141 mmol/L (136-145)
[2018-06-16] MEDS: PANTOPRAZOLE SODIUM 40 MG VIAL IVPUSH SCH (10:17)
--- NOTE | 2018-06-16 14:33 | PN ---
Physical Exam: SUBJECTIVE: Patient seen and examined. Offers no new complaints. Says he feels good today. Had BM in diapers with no blood seen. OBJECTIVE: Vital Signs Period Temp Pulse Resp BP Sys/Lin Pulse Ox Last 24 Hr 97.5 F-98.6 F 81-85 18-20 105-130/62-73 GENERAL: A&Ox3, NAD HEAD: NCAT EYES: EOMI EARS, NOSE, THROAT: Moist mucous membranes. NECK: Supple LUNGS: Diminished breath sounds at the bases, No wheezes, no crackles HEART: Regular rate and rhythm, normal S1 and S2 without murmur ABDOMEN: Soft, nontender, not distended, + bowel sounds, no guarding EXTREMITIES: No peripheral edema. NEUROLOGICAL: Cranial nerves II-XII intact. Normal speech. Slow but steady gait when ambulating with cane. SKIN: Warm, dry, Diffuse cutaneous neurofibromatosis lesions, Right sided Chest port Laboratory Results - last 24 hr 06/15/18 06/15/18 06/15/18 06:30 16:20 18:54 WBC 6.9 6.0 RBC 3.46 L 3.42 L Hgb 10.3 L 9.9 L Hct 30.2 L 29.6 L MCV 87.3 86.7 MCH 29.6 29.1 MCHC 34.0 33.5 RDW 14.6 14.9 Plt Count 299 293 MPV 7.7 7.7 Absolute Neuts (auto) 5.0 4.0 Neutrophils % 72.3 66.3 Lymphocytes % 12.2 D 14.2 Monocytes % 11.0 H 12.6 H Eosinophils % 3.8 D 6.3 H Basophils % 0.7 0.6 Nucleated RBC % 0 0 Sodium Potassium Chloride Carbon Dioxide Anion Gap BUN Creatinine Creat Clearance w eGFR Random Glucose Calcium Iron 20 L 06/16/18 06/16/18 07:45 07:45 WBC 6.0 RBC 3.27 L Hgb 9.5 L Hct 28.4 L MCV 86.9 MCH 29.2 MCHC 33.6 RDW 14.7 Plt Count 287 MPV 7.6 Absolute Neuts (auto) 4.0 Neutrophils % 66.0 Lymphocytes % 11.7 Monocytes % 10.4 H Eosinophils % 11.2 H Basophils % 0.7 Nucleated RBC % 0 Sodium 141 Potassium 4.0 Chloride 108 H Carbon Dioxide 27 Anion Gap 6 L BUN 7 Creatinine 0.3 L Creat Clearance w eGFR 322.77 Random Glucose 84 Calcium 8.5 Iron Active Medications Generic Name Dose Route Start Last Admin Trade Name Freq PRN Reason Stop Dose Admin Albuterol Sulfate 1 amp 06/15/18 00:59 Ventolin 0.083% Nebulizer Soln - NEB Q6H PRN SHORT OF BREATH/WHEEZING Sodium Chloride 1,000 mls @ 125 mls/hr 06/14/18 22:30 06/15/18 20:30 Normal Saline - IV 125 mls/hr ASDIR MATTHEW Administration Morphine Sulfate 2 mg 06/15/18 15:44 06/16/18 10:16 Morphine Sulfate IVPUSH 2 mg Q6H PRN Administration PAIN LEVEL 6-10 Nicotine Polacrilex 2 mg 06/15/18 14:06 06/16/18 13:38 Nicorette Gum - BUC 2 mg Q2H PRN Administration NICOTINE REPLACEMENT RX Ondansetron HCl 4 mg 06/15/18 09:11 06/15/18 09:41 Zofran Injection IVPUSH 4 mg Q6H PRN Administration NAUSEA Pantoprazole Sodium 40 mg 06/16/18 22:00 Protonix - PO BID MATTHEW Quetiapine Fumarate 100 mg 06/15/18 22:00 06/15/18 21:54 Seroquel - PO 100 mg HS MATTHEW Administration ASSESSMENT/PLAN: #Rectal Bleeding -resolved -Likely from recent NSAID use vs Rectal CA -H&H stable -Transfuse id Hgb < 7.0 -CT abd pelvis: rectal wall thickness and Possible Mets to the liver. -PO Pantoprazole -GI (Dr. Palacios) consulted -Morphine 2mg Q6H PRN for severe pain -Diet upgraded to Regular -Oncology consulted. #Diarrhea -resolved -FU stool studies #Asthma -Ventolin #FEN -dc fluids -Lytes WNL -Regular diet #PPx -DVT: SCDs dispo: plan for possible dc tomorrow. will need to follow up with his oncologist outpatient. Patient worried about dc because he says he is homeless. Visit type - Emergency Visit Emergency Visit: Yes ED Registration Date: 06/14/18 Care time: The patient presented to the Emergency Department on the above date and was hospitalized for further evaluation of their emergent condition. - New Patient This patient is new to me today: Yes Date on this admission: 06/16/18 - Critical Care Critical Care patient: No
--- NOTE | 2018-06-16 15:33 | CONSULT ---
Consult Consult Specialty:: Hematology Reason for Consultation:: Liver metastases - History of Present Illness Chief Complaint: Presented with BRBPR and anemia History of Present Illness: Patient is a 47-year-old homeless man, who was referred from a local rehab facility, with a history of bright red bleeding per rectum, and anemia. CT imaging on admission revealed the presence of multiple liver metastases. Of note, the patient has a known diagnosis of rectal cancer, initially managed with chemotherapy and radiation in 2017, at [facility] in [facility]. It is unclear what occurred during 2018, but according to the patient, he was last seen by his oncologist there in March 2018, when a port was placed, and it was determined that he would receive chemotherapy. According to the patient, ' things came up' and he was never able to follow up for treatment. He is aware that his cancer had spread, but is not specifically aware whether or not his liver metastases had been previously documented. Reports now diarrhea, and abdominal pain. - History Source History Provided By: Patient, Medical Record Limitations to Obtaining History: No Limitations - Past Medical History Gastrointestinal: Yes: GI Bleed - Alcohol/Substance Use Hx Alcohol Use: Yes - Smoking History Smoking history: Unknown if ever smoked Have you smoked in the past 12 months: Yes Aproximately how many cigarettes per day: 20 Home Medications - Allergies Allergies/Adverse Reactions: Allergies Allergy/AdvReac Type Severity Reaction Status Date / Time Penicillins Allergy Severe Difficulty Verified 05/28/18 15:15 Breathing fish derived Allergy Intermediate Hives Verified 05/28/18 15:15 pork derived (porcine) Allergy Intermediate Hives Verified 05/28/18 15:15 fish Allergy Intermediate Hives Uncoded 05/28/18 15:15 - Home Medications Home Medications: Ambulatory Orders Albuterol Sulfate Inhaler - [Ventolin HFA Inhaler -] 2 puff PO Q4H PRN 01/12/16 Quetiapine Fumarate [Seroquel] 100 mg PO HS #30 tablet 06/05/16 Family Disease History - Family Disease History Family Disease History: Diabetes: Grandparent (), Heart Disease: Grandparent, CA: Mother (SKIN CA-), Other: Father (IVD INJ/HIV/AIDS- ), Brother (alcohol) Review of Systems - Review of Systems Constitutional: reports: Unintentional Wgt. Loss Eyes: reports: No Symptoms HENT: reports: No Symptoms Neck: reports: No Symptoms Cardiovascular: denies: Chest Pain, Edema, Shortness of Breath Respiratory: denies: Cough Gastrointestinal: reports: Abdominal Pain, Rectal Bleeding Genitourinary: reports: No Symptoms Musculoskeletal: reports: No Symptoms Integumentary: reports: No Symptoms Neurological: reports: No Symptoms Endocrine: reports: No Symptoms Hematology/Lymphatic: denies: Easily Bruised Physical Exam Vital Signs: Vital Signs Temperature 98.2 F 06/16/18 14:10 Pulse Rate 86 06/16/18 14:10 Respiratory Rate 18 06/16/18 14:10 Blood Pressure 109/72 06/16/18 14:10 O2 Sat by Pulse Oximetry (%) 97 06/15/18 02:31 Constitutional: Yes: No Distress Eyes: Yes: Conjunctiva Clear HENT: Yes: Atraumatic Neck: Yes: Supple, Trachea Midline. No: Lymphadenopathy Cardiovascular: Yes: Regular Rate and Rhythm, S1, S2. No: Gallop, Murmur Respiratory: Yes: Regular, CTA Bilaterally Gastrointestinal: Yes: Normal Bowel Sounds. No: Ascites, Palpable Mass, Splenomegaly Musculoskeletal: No: Joint Swelling, Muscle Weakness Extremities: Yes: WNL Integumentary: Yes: Other (NF lesions) Neurological: Yes: Alert, Oriented ...Motor Strength: WNL Labs: CBC, BMP 06/16/18 07:45 06/16/18 07:45 Assessment/Plan 47-year-old patient with history of rectal cancer diagnosed in 2017 s/p chemotherapy/radiation, presumably thereafter lost to follow up, now with metastatic disease. His current his current issue is mild anemia, presumably on the basis of G.I. hemorrhage. Contact should be established with his primary oncologist at [facility] to determine an appropriate plan of care. Presumably he had been scheduled to start systemic palliative chemotherapy, but certainly his social circumstances, notably, his being homeless, and his opioid addiction , will make ongoing management challenging. mend worker involvement will be indispensible. Would defer to GI/surgery, to determine if any local intervention for rectum is presently warranted - apparently had been suggested to him previously that he may benefit from a diversion colostomy.
[2018-06-16 17:51] VITALS: BMI 19.4
[2018-06-16] MEDS: QUEtiapine FUMARATE 100 MG TABLET (FP) PO SCH (21:50)
[2018-06-16] MEDS: PANTOPRAZOLE 40 MG TABLET (FP) PO SCH (21:50)
[2018-06-17] MEDS: MORPHINE SULFATE 2 MG/ML VIAL IVPUSH PRN ×2 (05:29→11:53)
[2018-06-17 07:34] LABS: HEMATOCRIT 28.6 % (35.4-49); HEMOGLOBIN 9.9 GM/dL (11.7-16.9); MCH 29.6 pg (25.7-33.7); MCHC 34.5 g/dl (32.0-35.9); MEAN CELL VOLUME 85.7 fl (80-96); MEAN PLT VOLUME 7.8 fl (7.5-11.1); PLATELET COUNT 306 K/MM3 (134-434); RBC 3.34 M/mm3 (4.00-5.60); WHITE BLOOD COUNT 7.2 K/mm3 (4.0-10.0)
[2018-06-17] MEDS ORDERED: PT OWN MED DRAWER 7, Y5N ONE ×3 (09:31→20:58)
[2018-06-17] MEDS: PANTOPRAZOLE 40 MG TABLET (FP) PO SCH ×2 (09:36→21:01)
[2018-06-17] MEDS: NICOTINE POLACRILEX 2 MG GUM BUC PRN ×2 (09:36→21:02)
--- NOTE | 2018-06-17 16:12 | PN ---
Physical Exam: SUBJECTIVE: Patient seen and examined this AM. No longer having bloody BM's. Continues to have lower quadrant abdominal pain. OBJECTIVE: Vital Signs Period Temp Pulse Resp BP Sys/Lin Pulse Ox Last 24 Hr 98.1 F-98.4 F 84-93 20-80 111-134/67-81 97 GENERAL: A&Ox3, NAD HEAD: NCAT EYES: EOMI ENT: Moist mucous membranes. NECK: Supple LUNGS: Diminished breath sounds at the bases, No wheezes, no crackles HEART: Regular rate and rhythm, normal S1 and S2 without murmur ABDOMEN: Soft, nontender, not distended, + bowel sounds, no guarding EXTREMITIES: No peripheral edema. NEUROLOGICAL: Cranial nerves II-XII intact. Normal speech. Slow but steady gait when ambulating with cane. SKIN: Warm, dry, Diffuse cutaneous neurofibromatosis lesions, Right sided Chest port Laboratory Results - last 24 hr 06/17/18 06:50 WBC 7.2 RBC 3.34 L Hgb 9.9 L Hct 28.6 L MCV 85.7 MCH 29.6 MCHC 34.5 RDW 14.0 Plt Count 306 MPV 7.8 Microbiology 06/15/18 15:35 Stool Salmonella/Shigella Culture - Final NO GROWTH OF SALMONELLA OR SHIGELLA SPECIES OBTAINED 06/15/18 15:35 Stool Campylobacter Culture - Final NO GROWTH OF CAMPYLOBACTER SPECIES OBTAINED 06/15/18 15:35 Stool Yersinia Culture - Final NO GROWTH OF YERSINIA SPECIES OBTAINED 06/15/18 15:35 Stool Vibrio Culture - Final NO GROWTH OF VIBRIO SPECIES OBTAINED 06/15/18 15:35 Stool Escherichia coli 0157 Culture - Final NO GROWTH OF E COLI 0157 OBTAINED 06/15/18 15:35 Stool Gram Stain - Final 06/15/18 15:35 Stool Clostridioides difficile Antigen - Final 06/15/18 15:35 Stool Clostridioides difficile Toxin Assay - Final Active Medications Albuterol Sulfate (Ventolin 0.083% Nebulizer Soln -) 1 amp NEB Q6H PRN PRN Reason: SHORT OF BREATH/WHEEZING Morphine Sulfate (Morphine Sulfate) 2 mg IVPUSH Q6H PRN PRN Reason: PAIN LEVEL 6-10 Last Admin: 06/17/18 11:53 Dose: 2 mg Nicotine Polacrilex (Nicorette Gum -) 2 mg BUC Q2H PRN PRN Reason: NICOTINE REPLACEMENT RX Last Admin: 06/17/18 09:36 Dose: 2 mg Ondansetron HCl (Zofran Injection) 4 mg IVPUSH Q6H PRN PRN Reason: NAUSEA Last Admin: 06/15/18 09:41 Dose: 4 mg Pantoprazole Sodium (Protonix -) 40 mg PO BID MATTHEW Last Admin: 06/17/18 09:36 Dose: 40 mg Quetiapine Fumarate (Seroquel -) 100 mg PO HS MATTHEW Last Admin: 06/16/18 21:50 Dose: 100 mg IMAGING: -CT A/P w/wo contrast: At least 4 lesions the liver are identified suspicious for hepatic metastases. Mural thickening of the rectum which should be further evaluated -EKG: NSR, VR 90, QTc 413 ASSESSMENT/PLAN: 47 y/o M with PMHx of Rectal Ca (s/p Chemotherapy and Radiation), Asthma, neurofibromatosis, Polysubstance Abuse (Crack) presents with BRBPR #Symptomatic Anemia -In the setting of BRBPR possibly due to ulceration from Recent NSAID use VS Rectal CA -No longer having bloody BM's, BM this AM was dark however -H&H Stable; Transfuse if Hgb < 7.0 -IV Pantoprazole 40mg BID -Iron Stores Low -GI (Dr. Palacios) consulted, appreciate rec's -Oxycontin 10mg Q12H, Morphine 2mg Q4H PRN for severe pain -Bowel Regimen -Patient now agreeable with Colostomy; Will discuss with GI/Surgery #?Hepatic Mets -Hx of Rectal Ca s/p ChemoRT -Oncology consulted, appreciate rec's -Patient would like to discuss further options in tx #Asthma -Ventolin #FEN -No Standing fluids -Lytes WNL -Regular diet #PPx -DVT: SCDs Visit type - Emergency Visit Emergency Visit: Yes ED Registration Date: 06/14/18 Care time: The patient presented to the Emergency Department on the above date and was hospitalized for further evaluation of their emergent condition. - New Patient This patient is new to me today: No - Critical Care Critical Care patient: No - Discharge Referral Referred to [facility] Med P.C.: No
[2018-06-17] MEDS: oxyCODONE HCL 10 MG SUSTAINED ACTING TABLET PO SCH ×2 (16:27→21:01)
--- NOTE | 2018-06-17 17:15 | PN ---
Physical Exam: SUBJECTIVE: Patient seen and examined at bedside. Asking for pain meds. Otherwise no acute distress. OBJECTIVE: Vital Signs Period Temp Pulse Resp BP Sys/Lin Pulse Ox Last 24 Hr 98.1 F-98.4 F 84-93 20-80 111-134/67-81 97 GENERAL: The patient is awake, alert, and fully oriented, in no acute distress. HEENT : Multiple skin tags over face and forehead. LUNGS: Breath sounds equal, clear to auscultation bilaterally, no wheezes, no crackles, no accessory muscle use. HEART: Regular rate and rhythm, S1, S2 without murmur, rub or gallop. ABDOMEN: Soft, nontender, nondistended, normoactive bowel sounds, no guarding, no rebound, no hepatosplenomegaly, no masses. EXTREMITIES: 2+ pulses, warm, well-perfused, no edema. NEUROLOGICAL: Cranial nerves II through XII grossly intact. Normal speech, gait not observed. PSYCH: Normal mood, normal affect. SKIN: Warm, dry, normal turgor, no rashes or lesions noted Laboratory Results - last 24 hr 06/17/18 06:50 WBC 7.2 RBC 3.34 L Hgb 9.9 L Hct 28.6 L MCV 85.7 MCH 29.6 MCHC 34.5 RDW 14.0 Plt Count 306 MPV 7.8 Active Medications Generic Name Dose Route Start Last Admin Trade Name Freq PRN Reason Stop Dose Admin Albuterol Sulfate 1 amp 06/15/18 00:59 Ventolin 0.083% Nebulizer Soln - NEB Q6H PRN SHORT OF BREATH/WHEEZING Morphine Sulfate 2 mg 06/17/18 16:04 Morphine Sulfate IVPUSH Q4H PRN PAIN LEVEL 6-10 Nicotine Polacrilex 2 mg 06/15/18 14:06 06/17/18 09:36 Nicorette Gum - BUC 2 mg Q2H PRN Administration NICOTINE REPLACEMENT RX Ondansetron HCl 4 mg 06/15/18 09:11 06/15/18 09:41 Zofran Injection IVPUSH 4 mg Q6H PRN Administration NAUSEA Oxycodone HCl 10 mg 06/17/18 16:03 06/17/18 16:27 Oxycontin - PO 10 mg BID MATTHEW Administration Pantoprazole Sodium 40 mg 06/16/18 22:00 06/17/18 09:36 Protonix - PO 40 mg BID MATTHEW Administration Quetiapine Fumarate 100 mg 06/15/18 22:00 06/16/18 21:50 Seroquel - PO 100 mg HS MATTHEW Administration ASSESSMENT/PLAN: 47 y/o M with PMHx of Rectal Ca (s/p Chemotherapy and Radiation), Asthma, neurofibromatosis, Polysubstance Abuse (Crack) presents with BRBPR #Symptomatic Anemia -In the setting of BRBPR possibly due to ulceration from Recent NSAID use VS Rectal CA -No longer having bloody BM's, BM this AM was dark however -H&H Stable; Transfuse if Hgb < 7.0 -IV Pantoprazole 40mg BID -Iron Stores Low -GI (Dr. Palacios) consulted, appreciate rec's -Oxycontin 10mg Q12H, Morphine 2mg Q4H PRN for severe pain -Bowel Regimen -Patient now agreeable with Colostomy; Will discuss with GI/Surgery #?Hepatic Mets -Hx of Rectal Ca s/p ChemoRT -Oncology consulted, appreciate rec's -Patient would like to discuss further options in tx #Asthma -Ventolin #FEN -No Standing fluids -Lytes WNL -Regular diet #PPx -DVT: SCDs Agree fully with a/p above by logistics intern. The plan was d/w the patient at bedside >> Seems agreeable to be compliant to Rx. Will contact the aunt the HCP re: GOC/ POC. wILL FOLLOW. Visit type - Emergency Visit Emergency Visit: Yes ED Registration Date: 06/14/18 Care time: The patient presented to the Emergency Department on the above date and was hospitalized for further evaluation of their emergent condition. - New Patient This patient is new to me today: Yes Date on this admission: 06/17/18 - Critical Care Critical Care patient: No - Discharge Referral Referred to [facility] Med P.C.: No
--- NOTE | 2018-06-17 18:50 | PN.GI ---
GI Progress Note Subjective: patient was seen and examined at bed side reports 3-4 Soft stool with no bright blood but reports dark stool reports abdominal pain toleraing diet with no N/V - Objective Vital Signs: Vital Signs Temperature 99.3 F 06/17/18 16:40 Pulse Rate 90 06/17/18 16:40 Respiratory Rate 18 06/17/18 16:40 Blood Pressure 119/76 06/17/18 16:40 O2 Sat by Pulse Oximetry (%) 97 06/16/18 21:00 Labs: CBC, BMP 06/17/18 06:50 06/16/18 07:45 INR, PTT INR 1.12 (0.83-1.09) H 06/14/18 18:07 <Mckay Starr - Last Filed: 06/17/18 18:52> - Objective Vital Signs: Vital Signs Temperature 99.3 F 06/17/18 16:40 Pulse Rate 90 06/17/18 16:40 Respiratory Rate 18 06/17/18 16:40 Blood Pressure 119/76 06/17/18 16:40 O2 Sat by Pulse Oximetry (%) 97 06/16/18 21:00 Labs: CBC, BMP 06/17/18 06:50 06/16/18 07:45 INR, PTT INR 1.12 (0.83-1.09) H 06/14/18 18:07 <Kirti Wright - Last Filed: 06/17/18 19:54> Assessment/Plan (1) Rectal cancer metastasized to liver still have abdominal pain and rectal pain , he claim 10/29 , worsen with BM stool cultures reviewed and negative follow up with oncology as out pt Code(s): C20 - MALIGNANT NEOPLASM OF RECTUM; C78.7 - SECONDARY MALIG NEOPLASM OF LIVER AND INTRAHEPATIC BILE DUCT (2) Diarrhea Code(s): R19.7 - DIARRHEA, UNSPECIFIED improved , 3 BM soft lose withput blood but has dark stool (3) Rectal bleeding, improved Code(s): K62.5 - HEMORRHAGE OF ANUS AND RECTUM (4) Alcohol dependence Code(s): F10.20 - ALCOHOL DEPENDENCE, UNCOMPLICATED Qualifiers: Substance use status: uncomplicated Qualified Code(s): F10.20 - Alcohol dependence, uncomplicated (5) Cocaine dependence Code(s): F14.20 - COCAINE DEPENDENCE, UNCOMPLICATED <Mckay Starr - Last Filed: 06/17/18 18:52> Pt seen/examined with Dr. Starr, agree with above assessment and plan. Pt with h/o rectal cancer diagnosed in 2017 s/p chemotherapy/radiation being managed at [facility], then lost to follow up, with evidence of metastatic disease. Pt was to be transferred to however refused and preferring to transfer his care. Still with loose stools, no further bleeding, Hb stable. Tolerating diet. Recommend obtain records from [facility] including endoscopy reports and oncology notes to determine findings and plan of care. Oncology and colorectal surgery consults/follow up. Pts social circumstances however may limit management options. <Kirti Wright - Last Filed: 06/17/18 19:54>
[2018-06-17] MEDS: QUEtiapine FUMARATE 100 MG TABLET (FP) PO SCH (21:01)
[2018-06-18] MEDS: morphine SULFATE 4 MG/ML VIAL IVPUSH PRN ×5 (00:25→23:32)
[2018-06-18] MEDS ORDERED: PT OWN MED DRAWER 7, Y5N ONE ×6 (00:29→20:07)
[2018-06-18] MEDS: NICOTINE POLACRILEX 2 MG GUM BUC PRN ×6 (00:29→20:08)
[2018-06-18] MEDS ORDERED: IRON SUCROSE INJECTION 300 MG in SODIUM CHLORIDE 235 ML IVPB ONE (07:59)
[2018-06-18 08:11] LABS: BASO % 0.7 % (0-2.0); EOS % 13.2 % (0-4.5); HEMATOCRIT 29.6 % (35.4-49); LYMPH % 15.2 % (8-40); MCH 28.9 pg (25.7-33.7); MCHC 33.9 g/dl (32.0-35.9); MEAN CELL VOLUME 85.3 fl (80-96); MEAN PLT VOLUME 7.8 fl (7.5-11.1); MONO % 14.6 % (3.8-10.2); NEUT % 56.3 % (42.8-82.8); PLATELET COUNT 321 K/MM3 (134-434); RBC 3.47 M/mm3 (4.00-5.60); RDW 14.3 % (11.9-15.9); WHITE BLOOD COUNT 6.9 K/mm3 (4.0-10.0)
[2018-06-18] MEDS: oxyCODONE HCL 10 MG SUSTAINED ACTING TABLET PO SCH ×2 (09:11→21:14)
[2018-06-18] MEDS: PANTOPRAZOLE 40 MG TABLET (FP) PO SCH ×2 (09:12→21:14)
--- NOTE | 2018-06-18 11:00 | PN ---
Physical Exam: SUBJECTIVE: Patient seen and examined at bedside. Remains comfortable. Pain under control. No bloody bowel movements. OBJECTIVE: Vital Signs Period Temp Pulse Resp BP Sys/Lin Pulse Ox Last 24 Hr 98.1 F-99.3 F 67-93 18-20 105-125/62-76 GENERAL: The patient is awake, alert, and fully oriented, in no acute distress. HEENT : Multiple skin tags over face ( Neuro fibromatosis) LUNGS: Breath sounds equal, clear to auscultation bilaterally, no wheezes, no crackles, no accessory muscle use. HEART: Regular rate and rhythm, S1, S2 without murmur, rub or gallop. ABDOMEN: Soft, nontender, nondistended, normoactive bowel sounds, no guarding, no rebound, no hepatosplenomegaly, no masses. EXTREMITIES: 2+ pulses, warm, well-perfused, no edema. NEUROLOGICAL: Cranial nerves II through XII grossly intact. Normal speech, gait not observed. PSYCH: Normal mood, normal affect. SKIN: Warm, dry, normal turgor, no rashes or lesions noted Laboratory Results - last 24 hr 06/18/18 06:30 WBC 6.9 RBC 3.47 L Hgb 10.0 L Hct 29.6 L MCV 85.3 MCH 28.9 MCHC 33.9 RDW 14.3 Plt Count 321 MPV 7.8 Absolute Neuts (auto) 3.9 Neutrophils % 56.3 Lymphocytes % 15.2 D Monocytes % 14.6 H Eosinophils % 13.2 H Basophils % 0.7 Nucleated RBC % 0 Active Medications Generic Name Dose Route Start Last Admin Trade Name Freq PRN Reason Stop Dose Admin Albuterol Sulfate 1 amp 06/15/18 00:59 Ventolin 0.083% Nebulizer Soln - NEB Q6H PRN SHORT OF BREATH/WHEEZING Morphine Sulfate 2 mg 06/17/18 16:04 06/18/18 08:55 Morphine Sulfate IVPUSH 2 mg Q4H PRN Administration PAIN LEVEL 6-10 Nicotine Polacrilex 2 mg 06/15/18 14:06 06/18/18 08:05 Nicorette Gum - BUC 2 mg Q2H PRN Administration NICOTINE REPLACEMENT RX Ondansetron HCl 4 mg 06/15/18 09:11 06/15/18 09:41 Zofran Injection IVPUSH 4 mg Q6H PRN Administration NAUSEA Oxycodone HCl 10 mg 06/17/18 16:03 06/18/18 09:11 Oxycontin - PO 10 mg BID MATTHEW Administration Pantoprazole Sodium 40 mg 06/16/18 22:00 06/18/18 09:12 Protonix - PO 40 mg BID MATTHEW Administration Quetiapine Fumarate 100 mg 06/15/18 22:00 06/17/18 21:01 Seroquel - PO 100 mg HS MATTHEW Administration ASSESSMENT/PLAN: 47 y/o M with PMHx of Rectal Ca (s/p Chemotherapy and Radiation), Asthma, neurofibromatosis, Polysubstance Abuse (Crack) presents with BRBPR #Symptomatic Anemia - Acute on chronic blood loss from recent NSAID use VS Rectal CA -No longer having bloody BM's, BM this AM was dark however -H&H Stable; -IV Pantoprazole 40mg BID switched to PO. -Iron Stores Low>> Will start on Fe so4. -GI (Dr. Palacios) consulted, appreciate rec's - Control pain. - case discussed with GI/Surgery >> Offering no intervention at this time, will refer to [facility] where he had his Chemo /RTX earlier for further follow up. #?Hepatic Mets -Hx of Rectal Ca s/p ChemoRT -Oncology consulted, appreciate rec's - The patient was given all the info re: further f/u at [facility] >> Agreeable to plan. #Asthma -Ventolin #FEN -No Standing fluids -Lytes WNL -Regular diet #PPx -DVT: SCDs D/C PLANNING today to get back to Detox. The plan was d/w the patient at bedside >> Seems agreeable to be compliant to the plan. Visit type - Emergency Visit Emergency Visit: Yes ED Registration Date: 06/14/18 Care time: The patient presented to the Emergency Department on the above date and was hospitalized for further evaluation of their emergent condition. - New Patient This patient is new to me today: No - Critical Care Critical Care patient: No - Discharge Referral Referred to [facility] Med P.C.: No
--- NOTE | 2018-06-18 11:12 | DS ---
Physical Exam: SUBJECTIVE: Patient seen and examined this AM. Again advised on the importance of outpatient follow up. No new complaints. No acute overnight events. OBJECTIVE: Vital Signs Period Temp Pulse Resp BP Sys/Lin Pulse Ox Last 24 Hr 98.1 F-99.3 F 67-94 18-20 104-125/61-76 PHYSICAL EXAM GENERAL: A&Ox3, NAD HEAD: NCAT EYES: EOMI ENT: Moist mucous membranes. NECK: Supple LUNGS: Diminished breath sounds at the bases, No wheezes, no crackles HEART: Regular rate and rhythm, normal S1 and S2 without murmur ABDOMEN: Soft, nontender, not distended, + bowel sounds, no guarding EXTREMITIES: No peripheral edema. NEUROLOGICAL: Cranial nerves II-XII intact. Normal speech. Slow but steady gait when ambulating with cane. SKIN: Warm, dry, Diffuse cutaneous neurofibromatosis lesions, Right sided Chest port LABS Laboratory Results - last 24 hr 06/18/18 06:30 WBC 6.9 RBC 3.47 L Hgb 10.0 L Hct 29.6 L MCV 85.3 MCH 28.9 MCHC 33.9 RDW 14.3 Plt Count 321 MPV 7.8 Absolute Neuts (auto) 3.9 Neutrophils % 56.3 Lymphocytes % 15.2 D Monocytes % 14.6 H Eosinophils % 13.2 H Basophils % 0.7 Nucleated RBC % 0 Microbiology 06/15/18 15:35 Stool Salmonella/Shigella Culture - Final NO GROWTH OF SALMONELLA OR SHIGELLA SPECIES OBTAINED 06/15/18 15:35 Stool Campylobacter Culture - Final NO GROWTH OF CAMPYLOBACTER SPECIES OBTAINED 06/15/18 15:35 Stool Yersinia Culture - Final NO GROWTH OF YERSINIA SPECIES OBTAINED 06/15/18 15:35 Stool Vibrio Culture - Final NO GROWTH OF VIBRIO SPECIES OBTAINED 06/15/18 15:35 Stool Escherichia coli 0157 Culture - Final NO GROWTH OF E COLI 0157 OBTAINED 06/15/18 15:35 Stool Gram Stain - Final 06/15/18 15:35 Stool Clostridioides difficile Antigen - Final 06/15/18 15:35 Stool Clostridioides difficile Toxin Assay - Final IMAGING: -CT A/P w/wo contrast: At least 4 lesions the liver are identified suspicious for hepatic metastases. Mural thickening of the rectum which should be further evaluated -EKG: NSR, VR 90, QTc 413 HOSPITAL COURSE: Date of Admission:06/14/18 Date of Discharge: 06/18/18 47 y/o M with PMHx of Rectal Ca (s/p Chemotherapy and Radiation), Asthma, neurofibromatosis, Polysubstance Abuse (Crack) presented with BRBPR and found to have symptomatic anemia. Imaging, Micro and recent labwork noted above. H&H remained stable during his hospital course. CT A/P noted above was suspicious for hepatic metastases. GI and Oncology were consulted. It was determined that further management should be done at [facility] given that primary rectal ca mgmt was done at that institution, thus no procedure was done during this stay. Patient requested referral to a different oncologist in [place] and was instructed to follow up with [facility] oncology and patient agreed. He was informed of the importance of follow up given concerns for mets. He was advised to avoid NSAIDs as this may have contributed to his bleeding. Patient was discharged back to [facility] with strict instruction for medication compliance, physician follow up and drug cessation. Minutes to complete discharge: 36 Discharge Summary Reason For Visit: RECTAL HEMORRHAGE Current Active Problems Rectal bleeding (Acute) Rectal cancer metastasized to liver (Acute) Condition: Stable - Instructions Diet, Activity, Other Instructions: You were admitted to the hospital because you had a bleeding from your rectum; the bleeding resolved. Imaging revealed you may have metastasis to the liver. You are being discharged back to [facility] to complete your detox. You were treated with IV Iron as your levels were low Medication Changes: 1. Start Ferrous sulfate 325mg daily (Iron Supplementation) 2. Start Senna 1 tablet twice a day 3. Continue Pantoprazole 40mg daily Follow up with the following physicians: 1. Primary care physician in one week 2. Oncologist at [facility]--Dr. Tian in one week to further discuss your treatment options as the mass on your liver may be CANCEROUS. If you choose not to follow up with your previous oncologist, please follow with the [facility] at [address] [place] [id number]. Call [phone] to schedule follow up with an oncologist there. IT IS VERY IMPORTANT TO SCHEDULE FOLLOW UP You must stop using drugs. Continue all your other medications as prescribed Please return to the ER if you have any signs or symptoms of chest pain, shortness of breath, uncontrollable fever, chills, nausea, vomiting, numbness, tingling, or weakness in any part of your body, changes in vision, slurred speech, changes in speech/gait, or dizziness. Please return to the ER if symptoms persist, worsen, or new symptoms arise. Disposition: HOME - Home Medications Comprehensive Discharge Medication List: Ambulatory Orders Albuterol Sulfate Inhaler - [Ventolin HFA Inhaler -] 2 puff PO Q4H PRN 01/12/16 Quetiapine Fumarate [Seroquel] 100 mg PO HS #30 tablet 06/05/16 Ferrous Sulfate 325 mg PO DAILY #30 tablet 06/18/18 Pantoprazole Sodium [Protonix] 40 mg PO DAILY #30 tablet. 06/18/18 Sennosides [Senna -] 1 tab PO DAILY #30 tablet 06/18/18 This patient is new to me today: No Emergency Visit: Yes ED Registration Date: 06/14/18 Care time: The patient presented to the Emergency Department on the above date and was hospitalized for further evaluation of their emergent condition. Critical Care patient: No - Discharge Referral Referred to [facility] Med P.C.: No
--- NOTE | 2018-06-18 12:10 | PN ---
Physical Exam: SUBJECTIVE: Patient seen and examined this AM. Discussed in great deal the absolute necessity for follow up once discharged. No new complaints. No acute overnight events. OBJECTIVE: Vital Signs Period Temp Pulse Resp BP Sys/Lin Pulse Ox Last 24 Hr 98.1 F-99.3 F 67-94 18-20 104-125/61-76 GENERAL: A&Ox3, NAD HEAD: NCAT EYES: EOMI ENT: Moist mucous membranes. NECK: Supple LUNGS: Diminished breath sounds at the bases, No wheezes, no crackles HEART: Regular rate and rhythm, normal S1 and S2 without murmur ABDOMEN: Soft, nontender, not distended, + bowel sounds, no guarding EXTREMITIES: No peripheral edema. NEUROLOGICAL: Cranial nerves II-XII intact. Normal speech. Slow but steady gait when ambulating with cane. SKIN: Warm, dry, Diffuse cutaneous neurofibromatosis lesions, Right sided Chest port Laboratory Results - last 24 hr 06/18/18 06:30 WBC 6.9 RBC 3.47 L Hgb 10.0 L Hct 29.6 L MCV 85.3 MCH 28.9 MCHC 33.9 RDW 14.3 Plt Count 321 MPV 7.8 Absolute Neuts (auto) 3.9 Neutrophils % 56.3 Lymphocytes % 15.2 D Monocytes % 14.6 H Eosinophils % 13.2 H Basophils % 0.7 Nucleated RBC % 0 Microbiology 06/15/18 15:35 Stool Salmonella/Shigella Culture - Final NO GROWTH OF SALMONELLA OR SHIGELLA SPECIES OBTAINED 06/15/18 15:35 Stool Campylobacter Culture - Final NO GROWTH OF CAMPYLOBACTER SPECIES OBTAINED 06/15/18 15:35 Stool Yersinia Culture - Final NO GROWTH OF YERSINIA SPECIES OBTAINED 06/15/18 15:35 Stool Vibrio Culture - Final NO GROWTH OF VIBRIO SPECIES OBTAINED 06/15/18 15:35 Stool Escherichia coli 0157 Culture - Final NO GROWTH OF E COLI 0157 OBTAINED 06/15/18 15:35 Stool Gram Stain - Final 06/15/18 15:35 Stool Clostridioides difficile Antigen - Final 06/15/18 15:35 Stool Clostridioides difficile Toxin Assay - Final Active Medications Albuterol Sulfate (Ventolin 0.083% Nebulizer Soln -) 1 amp NEB Q6H PRN PRN Reason: SHORT OF BREATH/WHEEZING Morphine Sulfate (Morphine Sulfate) 2 mg IVPUSH Q4H PRN PRN Reason: PAIN LEVEL 6-10 Last Admin: 06/18/18 08:55 Dose: 2 mg Nicotine Polacrilex (Nicorette Gum -) 2 mg BUC Q2H PRN PRN Reason: NICOTINE REPLACEMENT RX Last Admin: 06/18/18 11:29 Dose: 2 mg Ondansetron HCl (Zofran Injection) 4 mg IVPUSH Q6H PRN PRN Reason: NAUSEA Last Admin: 06/15/18 09:41 Dose: 4 mg Oxycodone HCl (Oxycontin -) 10 mg PO BID [facility] Last Admin: 06/18/18 09:11 Dose: 10 mg Pantoprazole Sodium (Protonix -) 40 mg PO BID [facility] Last Admin: 06/18/18 09:12 Dose: 40 mg Quetiapine Fumarate (Seroquel -) 100 mg PO HS [facility] Last Admin: 06/17/18 21:01 Dose: 100 mg IMAGING: -CT A/P w/wo contrast: At least 4 lesions the liver are identified suspicious for hepatic metastases. Mural thickening of the rectum which should be further evaluated -EKG: NSR, VR 90, QTc 413 ASSESSMENT/PLAN: 47 y/o M with PMHx of Rectal Ca (s/p Chemotherapy and Radiation), Asthma, neurofibromatosis, Polysubstance Abuse (Crack) presents with BRBPR #Symptomatic Anemia -In the setting of BRBPR possibly due to ulceration from Recent NSAID use VS Rectal CA -H&H Stable; Transfuse if Hgb < 7.0 -IV Pantoprazole 40mg BID -Iron Stores Low--Given Venofer 300mg IV x 1, Will start ferrous sulfate PO following -GI (Dr. Palacios) consulted, appreciate rec's -Oxycontin 10mg Q12H, Morphine 2mg Q4H PRN for severe pain -Bowel Regimen #?Hepatic Mets -Hx of Rectal Ca s/p ChemoRT -Oncology consulted, appreciate rec's -Emphasized the need for outpatient oncology follow up--Strongly advised to follow up with Oncologist at [facility], Patient given all information, he is agreeable with plan #Asthma -Ventolin #FEN -No Standing fluids -Lytes WNL -Regular diet #PPx -DVT: SCDs Dispo: To return to [facility] pending bed placement; Sign out given to Dr. Joel Visit type - Emergency Visit Emergency Visit: Yes ED Registration Date: 06/14/18 Care time: The patient presented to the Emergency Department on the above date and was hospitalized for further evaluation of their emergent condition. - New Patient This patient is new to me today: No - Critical Care Critical Care patient: No - Discharge Referral Referred to [facility] Med P.C.: No
[2018-06-18] MEDS: QUEtiapine FUMARATE 100 MG TABLET (FP) PO SCH (21:14)
[2018-06-19] MEDS ORDERED: PT OWN MED DRAWER 7, Y5N ONE (00:31)
[2018-06-19] MEDS: NICOTINE POLACRILEX 2 MG GUM BUC PRN ×2 (01:26→08:30)
[2018-06-19] MEDS: morphine SULFATE 4 MG/ML VIAL IVPUSH PRN (04:48)
[2018-06-19] MEDS ORDERED: IRON SUCROSE INJECTION 300 MG in SODIUM CHLORIDE 235 ML IVPB ONE (08:21)
[2018-06-19] MEDS ORDERED: oxyCODONE HCL 5 MG TABLET PO PRN (09:34)
[2018-06-19] MEDS: oxyCODONE HCL 10 MG SUSTAINED ACTING TABLET PO SCH (10:04)
[2018-06-19] MEDS: PANTOPRAZOLE 40 MG TABLET (FP) PO SCH (10:04)
[2018-06-19 11:26] VITALS: BP 120/70; PULSE 87; TEMP 98.8
[2018-06-19] MEDS ORDERED: DOCUSATE SODIUM 100 MG CAPSULE (FP) PO SCH (14:00)
--- NOTE | 2018-06-19 19:44 | PN ---
Teaching Attending Note Name of Resident: Raegan Harrell ATTENDING PHYSICIAN STATEMENT I saw and evaluated the patient. I reviewed the resident's note and discussed the case with the resident. I agree with the resident's findings and plan as documented. pt seen and examined. CV: RRr, Lungs: CTAB. ext no edema Abd: slight tenderness in suprapubic area. chart reviewed. patient was discharged yesterday . but no beds were available . his Hb remains stable. GI notes reviewed. plan for out pt f/u with GI and ONc. no NSAIDs
== END 2018-06-19 13:22 | disposition home or self-care (01) | DRG 240 ==
LOC: JER 17:40 → JERBED 21:41 → J8W 06-15 03:06
PROVIDERS: ADMIT Internal Medicine; ATTEND Internal Medicine
PROC: 30233N1 Transfusion of Nonautologous Red Blood Cells into Peripheral Vein, Percutaneous Approach (ICD-10-PCS; principal; 2018-06-14)
DX: C20 Malignant neoplasm of rectum (principal); E46 Unspecified protein-calorie malnutrition; D62 Acute posthemorrhagic anemia; F14.20 Cocaine dependence, uncomplicated; E88.09 Other disorders of plasma-protein metabolism, not elsewhere classified; C78.7 Secondary malignant neoplasm of liver and intrahepatic bile duct; R19.7 Diarrhea, unspecified; J45.909 Unspecified asthma, uncomplicated; F17.210 Nicotine dependence, cigarettes, uncomplicated; Z85.048 Personal history of other malignant neoplasm of rectum, rectosigmoid junction, and anus; Z88.0 Allergy status to penicillin; Z59.0 Homelessness; Q85.00 Neurofibromatosis, unspecified; F32.9 Major depressive disorder, single episode, unspecified; F10.20 Alcohol dependence, uncomplicated; Z68.1 Body mass index [BMI] 19.9 or less, adult
CPT/HCPCS: 36415; 74178-TC; 80048; 80053; 81003; 82272; 83540; 83735; 84100; 85025; 85027; 85610; 86850; 86900; 86901; 87045; 87046; 87205; 87324; 87449; 93005; 93010; 99284-25; J1756; J7030